=== PATIENT | male | born 1945 | race Caucasian/White ===

== ENCOUNTER 2018-07-04 10:22 | Outpatient (REF) | payer MEDICARE, SELFPAY ==
[2018-07-04 19:12] LABS: Anion Gap 8.8 mmol/L (3-11); BUN 16 mg/dL (7-18); CO2 27.2 mmol/L (21.0-32.0); CREATININE 0.96 mg/dL (0.70-1.30); Calcium 9.3 mg/dL (8.5-10.1); Chloride 99 mmol/L (98-107); Glucose 86 mg/dL (70-100); Potassium 4.7 mmol/L (3.5-5.1); Sodium 135 mmol/L (136-145)
[2018-07-07 10:29] LABS: PSA, Screening 2.1 ng/ml (0-6.5)
== END 2018-07-04 10:42 ==
LOC: NCHCN 10:22
PROVIDERS: PCP Nurse Practitioner Family; Visit Provider Nurse Practitioner Family
DX: I10 Essential (primary) hypertension (principal); E78.5 Hyperlipidemia, unspecified; F41.1 Generalized anxiety disorder; Z12.5 Encounter for screening for malignant neoplasm of prostate; N40.0 Benign prostatic hyperplasia without lower urinary tract symptoms; R01.1 Cardiac murmur, unspecified
CPT/HCPCS: 80048; 84153

== ENCOUNTER 2019-07-27 22:28 | Outpatient (REF) | payer MEDICARE, SELFPAY ==
[2019-07-27 22:29] LABS: Absolute Basophil Count 0.03 k/cumm (0.0-0.2); Absolute Eosinophil Count 0.12 k/cumm (0.0-0.7); Absolute Lymphocyte Count 0.87 k/cumm (1.2-3.4); Absolute Monocyte Count 0.45 k/cumm (0.11-0.7); Absolute Neutrophil Count 2.41 k/cumm (1.2-6.7); Basophils % 0.8; Eosinophils % 3.1; HCT 43.5 % (40.0-50.0); HGB 14.5 g/dL (13.5-17.5); Lymphocytes % 22.4; Mean Corp. HGB Concentration 33.3 g/dL (32.0-36.0); Mean Corpuscular Volume 92.9 fL (80-95); Mean Platelet Volume 8.7 fL (8.0-11.0); Monocytes % 11.6; Neutrophils % 62.1; Platelet Count 364 x1000/uL (130-400); RBC 4.68 m/cumm (4.50-6.00); RBC Distribution Width 13.4 % (11.8-14.1); White Blood Cell Count 3.88 k/cumm (4.4-10.8)
[2019-07-27 23:56] LABS: Anion Gap 7.6 mmol/L (3-11); BUN 12 mg/dL (7-18); CO2 29.4 mmol/L (21.0-32.0); CREATININE 0.99 mg/dL (0.70-1.30); Chloride 99 mmol/L (98-107); Folate 11.1 ng/mL (8.6-20.0); Glucose 105 mg/dL (74-106); Potassium 4.4 mmol/L (3.5-5.1); Sodium 136 mmol/L (136-145); Vitamin B12 439 pg/mL (193-986)
[2019-07-29 09:16] LABS: PSA, Screening 2.5 ng/mL (0.0-6.5)
== END 2019-07-27 22:48 ==
LOC: NCHCN 22:28
PROVIDERS: PCP Nurse Practitioner Family; Visit Provider Nurse Practitioner Family
DX: D75.89 Other specified diseases of blood and blood-forming organs (principal); E87.1 Hypo-osmolality and hyponatremia; R79.9 Abnormal finding of blood chemistry, unspecified; Z12.5 Encounter for screening for malignant neoplasm of prostate
CPT/HCPCS: 80048; 84153; 82607; 82746; 85025

== ENCOUNTER 2020-07-28 08:45 | Outpatient (REF) | payer MEDICARE, SELFPAY ==
[2020-07-28 21:10] LABS: Anion Gap 10.1 mmol/L (3-11); BUN 11 mg/dL (7-18); CO2 26.9 mmol/L (21.0-32.0); CREATININE 1.1 mg/dL (0.70-1.30); Calcium 9.2 mg/dL (8.5-10.1); Chloride 101 mmol/L (98-107); Glucose 87 mg/dL (74-106); Potassium 4.7 mmol/L (3.5-5.1); Sodium 138 mmol/L (136-145)
[2020-07-29 17:59] LABS: PSA, Screening 2.1 ng/mL (0.0-6.5)
== END 2020-07-28 08:46 | disposition home or self-care (01) ==
LOC: NCHCN 08:45
PROVIDERS: PCP Nurse Practitioner Family; Visit Provider Nurse Practitioner Family
DX: I10 Essential (primary) hypertension (principal); E78.5 Hyperlipidemia, unspecified; I48.0 Paroxysmal atrial fibrillation; N40.0 Benign prostatic hyperplasia without lower urinary tract symptoms; Z12.5 Encounter for screening for malignant neoplasm of prostate
CPT/HCPCS: 80048; 84153

== ENCOUNTER 2021-08-28 16:19 | Outpatient (REF) | payer MEDICARE, SELFPAY ==
[2021-08-28 14:28] LABS: HCT 42.4 % (40.0-50.0); HGB 14.3 g/dL (13.5-17.5); MCH 31.8 pg (27.0-33.0); MCHC 33.7 % (32.0-36.0); MCV 94 fL (80-95); MPV 8.9 fL (8.0-11.0); Platelet Count 305 10^3/uL (130-400); RDW 12.8 % (11.8-14.1); RDW-SD 44.3 fL; WBC 3.46 10^3/uL (4.4-10.8)
[2021-08-28 14:45] LABS: Anion Gap 9.2 mmol/L (3-11); BUN 15 mg/dL (7-18); CO2 25.8 mmol/L (21.0-32.0); CREATININE 1.2 mg/dL (0.70-1.30); Chloride 99 mmol/L (98-107); Estimated GFR 58.86 (mL/min/1.73m2); Glucose 109 mg/dL (74-106); Potassium 4.7 mmol/L (3.5-5.1); Sodium 134 mmol/L (136-145)
[2021-08-28 22:42] LABS: PSA, Screening 1.8 ng/mL (<=6.5)
== END 2021-08-28 16:20 | disposition home or self-care (01) ==
LOC: NCHCN 16:19
PROVIDERS: PCP Nurse Practitioner Family; Visit Provider Nurse Practitioner Family
DX: Z00.00 Encounter for general adult medical examination without abnormal findings (principal); I10 Essential (primary) hypertension; Z12.5 Encounter for screening for malignant neoplasm of prostate; Z13.0 Encounter for screening for diseases of the blood and blood-forming organs and certain disorders involving the immune mechanism
CPT/HCPCS: 80048; 84153; 85027

== ENCOUNTER 2022-02-28 09:44 | Outpatient (REF) | payer MEDICARE, SELFPAY ==
[2022-02-28 15:36] LABS: Absolute Basophil Count 0.03 10^3/uL (0.0-0.2); Absolute Eosinophil Count 0.14 10^3/uL (0.0-0.7); Absolute Lymphocyte Count 0.91 10^3/uL (1.2-3.4); Absolute Monocyte Count 0.48 10^3/uL (0.1-0.8); Absolute Neutrophil Count 2.63 10^3/uL (1.2-6.7); Basophils % 0.7; Eosinophils % 3.3; HCT 42.5 % (40.0-50.0); HGB 14.3 g/dL (13.5-17.5); Lymphocytes % 21.7; MCH 31.8 pg (27.0-33.0); MCHC 33.6 % (32.0-36.0); MCV 94 fL (80-95); MPV 8.9 fL (8.0-11.0); Monocytes % 11.5; Neutrophils % 62.8; Platelet Count 334 10^3/uL (130-400); RDW 12.4 % (11.8-14.1); RDW-SD 43.4 fL; WBC 4.19 10^3/uL (4.4-10.8)
== END 2022-02-28 09:45 | disposition home or self-care (01) ==
LOC: NCHCN 09:44
PROVIDERS: PCP Nurse Practitioner Family; Visit Provider Nurse Practitioner Family
DX: I48.0 Paroxysmal atrial fibrillation (principal)
CPT/HCPCS: 85025

== ENCOUNTER 2022-09-10 11:41 | Outpatient (REF) | payer MEDICARE, SELFPAY ==
[2022-09-10 15:31] LABS: HCT 42.5 % (40.0-50.0); HGB 14.1 g/dL (13.5-17.5); MCH 31.6 pg (27.0-33.0); MCHC 33.2 % (32.0-36.0); MCV 95 fL (80-95); MPV 8.4 fL (8.0-11.0); Platelet Count 336 10^3/uL (130-400); RBC 4.46 10^6/uL (4.36-5.78); RDW 12.8 % (11.8-14.1); RDW-SD 45.6 fL; WBC 3.87 10^3/uL (4.4-10.8)
[2022-09-10 15:43] LABS: Anion Gap 7.8 mmol/L (3-11); BUN 14 mg/dL (7-18); CO2 27.2 mmol/L (21.0-32.0); Calcium 9.2 mg/dL (8.5-10.1); Chloride 100 mmol/L (98-107); Estimated GFR 77.52 (mL/min/1.73m2); Glucose 81 mg/dL (74-106); Potassium 4.8 mmol/L (3.5-5.1); Sodium 135 mmol/L (136-145)
[2022-09-11 09:20] LABS: PSA, Screening 1.9 ng/mL (<=6.5)
== END 2022-09-10 11:42 | disposition home or self-care (01) ==
LOC: NCHCN 11:41
PROVIDERS: PCP Nurse Practitioner Family; Visit Provider Nurse Practitioner Family
DX: I10 Essential (primary) hypertension (principal); E78.5 Hyperlipidemia, unspecified; I48.0 Paroxysmal atrial fibrillation; Z79.01 Long term (current) use of anticoagulants; N40.0 Benign prostatic hyperplasia without lower urinary tract symptoms; Z12.5 Encounter for screening for malignant neoplasm of prostate
CPT/HCPCS: 80048; 84153; 85027

== ENCOUNTER 2023-08-27 18:12 | Outpatient (REF) | payer MEDICARE, SELFPAY ==
[2023-08-27 16:22] LABS: HCT 42.2 % (40.0-50.0); HGB 14.4 g/dL (13.5-17.5); MCH 32.3 pg (27.0-33.0); MCHC 34.1 % (32.0-36.0); MCV 95 fL (80-95); MPV 8.6 fL (8.0-11.0); Platelet Count 333 10^3/uL (130-400); RBC 4.46 10^6/uL (4.36-5.78); RDW 12.6 % (11.8-14.1); RDW-SD 43.8 fL; WBC 4.05 10^3/uL (4.4-10.8)
[2023-08-27 16:39] LABS: Anion Gap 8.5 mmol/L (3-11); BUN 14 mg/dL (7-18); CO2 25.5 mmol/L (21.0-32.0); Calcium 9.3 mg/dL (8.5-10.1); Chloride 101 mmol/L (98-107); Estimated GFR 77.04 (mL/min/1.73m2); Glucose 89 mg/dL (74-106); Potassium 4.6 mmol/L (3.5-5.1); Sodium 135 mmol/L (136-145)
--- OUTSIDE RECORDS SUMMARY | 2023-08-27 18:15 | XMS_ITS | Clinical Summary ---
Author Organization [facility] Address [address] [place] [address] Care Team Providers Care Registered Nurse Fetal Name Role Phone Purvi Amador VEGETABLE TESTER Primary Care Provider [phone] Allergies Active Allergy Reactions Criticality Noted Date Comments Zolpidem Other (See Comments) 09/14/2014 Hallucinations Penicillins 09/14/2014 Medications Medication Sig Dispensed Refills Start Date End Date Status venlafaxine (EFFEXOR-XR) 150 mg XR capsule Take 1 Capsule by mouth daily. Active TAMSulosin (FLOMAX) 0.4 mg capsule Take 1 Capsule by mouth daily. Active betamethasone dipropionate 0.05 % lotion Apply topically 2 times daily Active cetirizine (ZYRTEC) 10 mg tablet Take 10 mg by mouth daily. Active NONFORMULARY Take by mouth daily green Vibrance - supplements Active metroNIDAZOLE (METROGEL) 1 % gel Apply topically daily. Use a thin layer to affected areas after washing Active lisinopril (PRINIVIL, ZESTRIL) 2.5 mg tablet Take 1 Tablet by mouth daily. Active ELIQUIS 5 mg tablet Take 1 Tablet by mouth 2 times daily. 01/20/2020 Active Active Problems Problem Noted Date Diagnosed Date Paroxysmal atrial fibrillation ([facility]) Cerebrovascular accident (CVA) ([facility]) 020 Overview: Added automatically from request for surgery [id number] Rotator cuff tear 10/19/2014 Shoulder impingement 10/19/2014 Vertigo 09/16/2014 Asymmetrical left sensorineural hearing loss 07/2014 Encounters Date Type Department Care Team Description 08/27/2023 Lab Requisition [facility] Pathology & [place] [address] Outr Resulting Lab, Provider from Last 3 Months Surgical History Surgery Date Site/Laterality Comments TONSILLECTOMY ANKLE SURGERY PILONIDAL CYST EXCISION ROTATOR CUFF REPAIR and bicep tendon Medical History Medical History Date Comments Heartburn Cancer (HCC-CMS) Environmental allergies Hypertension Family History Medical History Relation Comments Cancer Father Hearing Loss Father Heart Disease Father Heart Disease Mother Relation Status Comments Father Mother Social History Tobacco Use Types Packs/Day Years Used Date Smoking Tobacco: Former Cigarettes 1 19 Smokeless Tobacco: Never Alcohol Use Standard Drinks/Week Comments No 0 (1 standard drink = 0.6 oz pur e alcohol) Interpersonal Safety Answer Date Record ed Physically Hurt Never 09/13/2019 Verbally Threaten Not on file 09/13/2019 Sex and Gender Information Value Date Recorded Sex Assigned at Not on file Gender Identity Male 08/12/2019 12:25 EDT Sexual Orientation Not on file Obstetrics History Last Filed Vital Signs Vital Sign Reading Time Taken Comments Blood Pressure 148/88 01/30/2022 1128 EST Pulse 60 01/30/2022 1128 EST Temperature 35.4 ??C (95.7 ??F) 12/26/2018 0916 EST Respiratory Rate 16 10/19/2014 1357 EDT Oxygen Saturation 98% 01/30/2022 1128 EST Inhaled Oxygen Concentration - - Weight 70.8 kg (156 lb) 01/30/2022 1128 EST Height 177.8 cm (5' 10) 06/27/2017 1509 EDT Body Mass Index 22.38 06/27/2017 1509 EDT Plan of Treatment Health Maintenance Due Date Last Done Comments Hepatitis C Screen 1944 RSV Immunization ( o r 60+ Years) (1 - 1-dose 60+ series) 2004 Fall Risk Screening 01/18/2021 01/19/2020 COVID-19 Vaccine ( - 2022- season) 2022 Medical Devices Implanted Type Area Skimmer Device Identifier Shelf Expiration Date Model / Serial / Lot System Antique Collector Wireless Reveal Linq - [id number] Implanted:Qt y: 1 on 08/12/2019 by Keyon Larson MD at [facility] Implantable Loop Recorder N/A: Chest [employer] [id number] 04/24/2020 [employer]INT[employer] / [id number] S / Advance Directives For more information, please contact: [phone] * Full Code (Latest Code Status on File) Date Activated Date Inactivated Comments 10/19/2014 6:22 10/19/2014 16:34 Question Answer Comments Reason for decision includes: Full code consistent with overall plan of care Who participated in the discussion? Not Discusse d Care Teams Registered Nurse Fetal Relationship Specialty Start Date End Date Purvi Amador, VEGETABLE TESTER [address] [place] [address] PCP - General 08/18/14
--- OUTSIDE RECORDS SUMMARY | 2023-08-27 18:15 | XMS_ITS | Encounter Summary ---
Author Organization [facility] Address [address] [place] [address] Care Team Providers Care Regional Account Manager Name Role Phone Purvi Amador OIL TREATER Primary Care Provider [phone] Encounter Details Date Type Department Care Team (Late st Contact Info) Description 08/27/2023 Lab Requisition [facility] Pathology & Laboratory Medicine - [address] [address] Outr Resulting Lab, Provider Social History Tobacco Use Types Packs/Day Years [...] 12:25 EDT Sexual Orientation Not on file documented as of this encounter Functional Status Functional Status Response Date of Assess ment Because of a physical, menta l, or emotional condition, does this person have difficulty doing errands alone such as visiting a doctor's office or shopping? No 01/19/2020 Cognitive Status Response Date of Assessm ent Because of a physical, menta l, or emotional condition, does this person have serious difficulty concentrating, remembering, or making decisions? No 01/19/2020 documented as of this encounter Plan of Treatment Scheduled Orders Name Type Priority Associated Diagnoses Orde r Schedule PSA TOTAL, DIAGNOSTIC Lab Routine Ord ered: 08/27/2023 documented as of this encounter Visit Diagnoses Not on filedocumented in this encounter Care Teams Regional Account Manager Relationship Specialty Start Date End Date Purvi Amador, OIL TREATER [address] [place] [address] PCP - General 08/18/14 documented as of this encounter
--- OUTSIDE RECORDS SUMMARY | 2023-08-27 18:15 | XMS_ITS | Encounter Summary ---
Author Organization [facility] Address [address] [place] [address] Care Team Providers Care Rig Supervisor Name Role Phone Purvi Amador NP Primary Care Provider Reason for Referral * (Routine) - Closed Specialty Diagnoses / Procedures Referred By Contac t Referred To Contact Diagnoses Atrial fibrillation ([facility]) Procedures CARDIAC IMPLANT CHECK - REMOTE MONITOR Maris Mead NP [address] [address] Referral ID Status Reason Start Date Expiration Date Visits Re quested Visits Authorized [id number] Closed 11/20/2019 1 1 Reason for Visit * (Routine) - Closed Specialty Diagnoses / Procedures Referred By Contac t Referred To Contact Diagnoses Atrial fibrillation ([facility]) Procedures CARDIAC IMPLANT CHECK - REMOTE MONITOR Maris Mead NP [address] [address] Referral ID Status Reason Start Date Expiration Date Visits Re quested Visits Authorized [id number] Closed 11/20/2019 1 1 Encounter Details Date Type Department Care Team (Latest Contact Info) Description 01/18/2020 12:56 EST - 01/18/2020 23:59 EST Hospital Encounter [facility] Remote Device [address] [place] [address] Atrial fibrillation (HCC-CMS) Discharge Disposition: Home or Self Care Social History Tobacco Use Types Packs/Day Years [...] on file documented as of this encounter Medications at Time of Discharge Medication Sig Dispensed Refills Start Date End Date betamethasone dipropionate 0.05 % lotion Apply topically 2 times daily cetirizine (ZYRTEC) 10 mg tablet Take 10 mg by mouth daily. lisinopril (PRINIVIL, ZESTRIL) 2.5 mg tablet Take 1 Tablet by mouth daily. metroNIDAZOLE (METROGEL) 1 % gel Apply topically daily. Use a thin layer to affected areas after washing NONFORMULARY Take by mouth daily green Vibrance - supplements TAMSulosin (FLOMAX) 0.4 mg capsule Take 1 Capsule by mouth daily. venlafaxine (EFFEXOR-XR) 150 mg XR capsule Take 1 Capsule by mouth daily. documented as of this encounter Discharge Disposition Disposition Code Departure Means Destination Home or Self Care documented in this encounter Plan of Treatment Not on file documented as of this encounter Procedures Procedure Name Priority Date/Time Associated Diagnosis Comments CARDIAC IMPLANT CHECK - REMOTE MONITOR Routine 01/18/2020 12:57 EST Atrial fibrillation (HCC-CMS) documented in this encounter Results * CARDIAC IMPLANT CHECK - REMOTE - LOOP RECORDER (ILR) (01/18/2020 12:57 EST) Anatomical Region Laterality Modality Device Narrative 01/20/2020 21:46 EST I have reviewed the implantable loop recorder interrogation. ??I agree with the findings. ?? SCHEDULED ILR REMOTE TRANSMISSION. 0 EPISODES RECORDED SINCE LAST INTERROGATION. BATTERY STATUS OK. NEXT CHECK IN 1 MO. DC Maris Mead NP CV IMPLANTABLE CARDI AC DEVICE documented in this encounter Visit Diagnoses Diagnosis Atrial fibrillation (HCC-CMS) Atrial fibrillation documented in this encounter Care Teams Rig Supervisor Relationship Specialty Start Date End Date Purvi Amador NP [address] [place] [address] PCP - General 08/18/14 documented as of this encounter
--- OUTSIDE RECORDS SUMMARY | 2023-08-27 18:15 | XMS_ITS | Encounter Summary ---
Author Organization [facility] Address [address] [place] [address] Care Team Providers Care Superintendent Drilling Name Role Phone Purvi Amador JAVA GRAILS DEVELOPER Primary Care Provider [phone] Encounter Details Date Type Department Care Team (Late st Contact Info) Description 05/02/2021 Lab Requisition [facility] Pathology & Laboratory Medicine - [facility] [address] [place] [address] Marisel Davis PA-C [address] [place], [place] [id number] Neoplasm of uncertain behavior of skin Social History Tobacco Use Types Packs/Day Years [...] as of this encounter Plan of Treatment Not on file documented as of this encounter Procedures Procedure Name Priority Date/Time Associated Diagnosis Comments SURGICAL PATHOLOGY Today 05/02/2021 9:58 EDT Neoplasm of uncertain behavior of skin documented in this encounter Results * SURGICAL PATHOLOGY (05/02/2021 9:58 EDT) Note to Patient The following pathology results have been interpreted by your pathologist and may be available to you before your health provider has had the opportunity to review them. Please allow time for your provider to receive these results and explore management options, if applicable. 05/03/2021 10:02 [facility] Final Diagnosis A. SKIN OF BACK, LEFT MEDIAL UPPER, SHAVE BIOPSY: - Basal cell carcinoma, nodular type, with adjacent hemangioma. - Basal cell carcinoma does not extend to edges of shave biopsy specimen in the plane of the sections examined. 05/03/2021 10:02 [facility] Attestation By the signature below, the attending physician certifies that they have 1) personally conducted a gross and/or microscopic examination of the described specimen(s), and/or personally interpreted the results of laboratory testing of the described specimen(s), and 2) personally rendered or confirmed the above diagnosis. 05/03/2021 10:02 [facility] at 1002 Microscopic Description Irregularly shaped islands of atypical basal cells infiltrate the dermis. The basal cells have scant cytoplasm and round dark nuclei. Mitotic figures and apoptotic bodies are evident. The nuclei at the periphery of the islands have a palisaded arrangement. The islands are associated with a fibromyxoid stroma and there is cleft formation between some of the islands and stroma. There is an adjacent lobular proliferation of small thin-walled vessels lined by flattened endothelium. 05/03/2021 10:02 [facility] Clinical History 5 mm telangiectatic papule with adjacent hemangioma; DDx: Basal cell carcinoma vs irritated seborrheic keratosis with adjacent hemangioma; Notes: Plan: ED&C; clinical diagnosis code: D48.5 05/03/2021 10:02 [facility] Gross Description A. Received in formalin labelled with proper patient identification (initials S, W) and left medial upper back is a rubbery ovoid skin shave, 0.8 x 0.7 x 0.15 cm. The skin surface is dull avelar with brown speckling. The margin is inked. Trisected and entirely submitted in A1. DINESH MUNGUIA(ASCP) 05/02/2021 16:32 05/03/2021 10:02 EDT [facility] Performing Lab [facility] 05/03/2021 10:02 EDT [facility] Scanned Images 05/03/2021 10:02 EDT [facility] Tissue TISSUE SPECIMEN FROM SKIN / Unknown 05/02/2021 9:58 EDT 05/02/2021 14:09 EDT Marisel Davis PA-C PATHOLOGY ORD ERABLES [facility] [address] [place] [address] documented in this encounter Visit Diagnoses Diagnosis Neoplasm of uncertain behavior of skin documented in this encounter Care Teams Superintendent Drilling Relationship Specialty Start Date End Date Purvi Amador NP [address] [place] [address] PCP - General 08/18/14 documented as of this encounter
--- OUTSIDE RECORDS SUMMARY | 2023-08-27 18:15 | XMS_ITS | Encounter Summary ---
Author Organization [facility] Address [address] [place] [address] Care Team Providers Care Junior Recruiter Name Role Phone Purvi Amador DIRECTOR OF ENVIRONMENTAL SERVICES Primary Care Provider [phone] Encounter Details Date Type Department Care Team (Latest Contact Info) Description 08/12/2019 Travel Social History Tobacco Use Types Packs/Day Years Used Date Smoking Tobacco: Former Cigarettes 1 19 Smokeless Tobacco: Never Alcohol Use Standard Drinks/Week Comments No 0 (1 standard drink = 0.6 oz pur e alcohol) Sex and Gender Information Value Date Recorded Sex Assigned at Not on file Gender Identity Male 08/12/2019 12:25 EDT Sexual Orientation Not on file COVID-19 Exposure Response Date Recorded In the last month, have you been in contact with someone who was confirmed or suspected to have Coronavirus / COVID-19? No / Unsure 08/12/2019 12:21 EDT documented as of this encounter Plan of Treatment Not on file documented as of this encounter Visit Diagnoses Not on filedocumented in this encounter Care Teams Junior Recruiter Relationship Specialty Start Date End Date Purvi Amador, DIRECTOR OF ENVIRONMENTAL SERVICES [address] [place] [address] PCP - General 08/18/14 documented as of this encounter
--- OUTSIDE RECORDS SUMMARY | 2023-08-27 18:15 | XMS_ITS | Encounter Summary ---
Author Organization [facility] Address [address] [place] [address] Care Team Providers Care Twisting Press Operator Name Role Phone Purvi Amador NP Primary Care Provider [phone] Reason for Referral * (Routine) - Closed Specialty Diagnoses / Procedures Referred By Contac t Referred To Contact Diagnoses Atrial fibrillation (HCC-CMS) Procedures CARDIAC IMPLANT CHECK - REMOTE MONITOR Maris Mead NP [id number] [address] Referral ID Status Reason Start Date Expiration Date Visits Re quested Visits Authorized [id number] Closed 08/02/2020 1 1 Reason for Visit * (Routine) - Closed Specialty Diagnoses / Procedures Referred By Contac t Referred To Contact Diagnoses Atrial fibrillation (HCC-CMS) Procedures CARDIAC IMPLANT CHECK - REMOTE MONITOR Maris Mead NP [id number] [address] Referral ID Status Reason Start Date Expiration Date Visits Re quested Visits Authorized [id number] Closed 08/02/2020 1 1 Encounter Details Date Type Department Care Team (Latest Contact Info) Description 09/02/2020 5:15 EDT - 09/02/2020 23:59 EDT Hospital Encounter [facility] Remote Device [address] [place] [address] Atrial fibrillation (HCC-CMS) Discharge Disposition: Home or [...] No 01/19/2020 documented as of this encounter Medications at Time of Discharge Medication Sig Dispensed Refills Start Date End Date betamethasone dipropionate 0.05 % lotion Apply topically 2 times daily cetirizine (ZYRTEC) 10 mg tablet Take 10 mg by mouth daily. ELIQUIS 5 mg tablet Take 1 Tablet by mouth 2 times daily. 01/20/2020 lisinopril (PRINIVIL, ZESTRIL) 2.5 mg tablet Take [...] CARDIAC IMPLANT CHECK - REMOTE MONITOR Routine 09/02/2020 13:08 EDT Atrial fibrillation (HCC-CMS) documented in this encounter Results * CARDIAC IMPLANT CHECK - REMOTE - LOOP RECORDER (ILR) (09/02/2020 13:08 EDT) Anatomical Region Laterality Modality Device Narrative 09/05/2020 14:45 EDT I have reviewed the implantable loop recorder interrogation. ??I agree with the findings. SCHEDULED ILR REMOTE TRANSMISSION. 0 EPISODES RECORDED SINCE LAST INTERROGATION. BATTERY STATUS OK. NEXT CHECK IN 1 MO. DC Maris Mead NP CV IMPLANTABLE CARDI AC DEVICE documented in this encounter Visit Diagnoses Diagnosis Atrial fibrillation ([facility]) Atrial fibrillation documented in this encounter Care Teams Twisting Press Operator Relationship Specialty Start Date End Date Purvi Amador NP [address] [place] [address] PCP - General 08/18/14 documented as of this encounter
--- OUTSIDE RECORDS SUMMARY | 2023-08-27 18:15 | XMS_ITS | Encounter Summary ---
Author Organization [facility] Address [address] [place] [address] Care Team Providers Care Car Wrecker Name Role Phone Purvi Amador THERMO PROCESSOR Primary Care Provider [phone] Reason for Visit * Reason Comments Atrial Fibrillation Encounter Details Date Type Department Care Team (Late st Contact Info) Description 01/24/2021 8:30 EST Office Visit [facility] Cardiology - [address] [place] [address] Lion Mitchell MD [address] [place], [place] [address]ey [facility] [address] [place] [address] Paroxysmal atrial fibrillation (HCC-CMS) (HCC) (Primary Dx) Social History Tobacco Use Types Packs/Day Years [...] on file documented as of this encounter Last Filed Vital Signs Vital Sign Reading Time Taken Comments Blood Pressure 142/82 01/24/2021 0825 EST Pulse 67 01/24/2021 0825 EST Temperature - - Respiratory Rate - - Oxygen Saturation 99% 01/24/2021 0825 EST Inhaled Oxygen Concentration - - Weight 70.8 kg (156 lb) 01/24/2021 0825 EST Height - - Body Mass Index 22.38 06/27/2017 1509 EDT documented in this encounter Functional Status Functional Status Response [...] No 01/19/2020 documented as of this encounter Patient Instructions * Patient Instructions* Lion Mitchell MD - 01/24/2021 8:30 EST You are tolerating the Eliquis well and this should be continued indefinitely. Please try to identify the equipment for your implantable loop recorder transmission and we will take advantage of this until the battery runs out. After that, I would be happy to arrange removal, which is a minor outpatient procedure that is performed in a specialized setting, rather than the clinic. Your blood pressure is slightly elevated. Please check this at home and follow- up with Purvi Amador, who may wish to advance your antihypertensive medicine. I will plan to see you back in clinic in 1 year or sooner if necessary. documented in this encounter Progress Notes * Lion Mitchell MD - 01/24/2021 0830 EST Subjective: Patient ID: Michael Mackenzie is an 75 y.o. man who returns for scheduled follow- up of atrial fibrillation and TIA.. Chief Complaint Patient presents with ??? Atrial Fibrillation HPI The history is summarized in a telemedicine visit from January 19, 2020. 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 He was a reason but had an implantable loop recorder placed onAugust 12, 2019. On January 15, 2020, the ILR was interrogated based on alert transmission and 20 minutes of atrial fibrillation with average heart rate of 95 bpm was documented. Discontinuation of aspirin and initiation of apixaban 5 mg twice a day was recommended. He has continued to be followed forhis loop recorder. Today he returns for scheduled follow-up which is her first visit in person. He has not been transmitting from loop recorder but plans to identify the equipment and continue; he is in the process of moving so his belongings are in storage. He denies any shortness of breath, chest pain, or palpitations. He will occasionally feel dizzy after going up stairs but this is not new. He is very active and has lost some weight as he has been building a new house. Patient Active Problem List Diagnosis ??? Vertigo ??? Asymmetrical left sensorineural hearing loss ??? Rotator cuff tear ??? Shoulder impingement ??? Cerebrovascular accident (CVA) (HCC-CMS) (HCC) ??? Paroxysmal atrial fibrillation (HCC-CMS) (HCC) Past Medical History: Diagnosis Date ??? Cancer (HCC-CMS) (HCC) ??? Environmental allergies ??? Heartburn ??? Hypertension Past Surgical History: Procedure Laterality Date ??? ANKLE SURGERY ??? PILONIDAL CYST EXCISION ??? ROTATOR CUFF REPAIR and bicep tendon ??? TONSILLECTOMY Family History Problem Relation Age of Onset ??? Heart Disease Mother ??? Cancer Father ??? Heart Disease Father ??? Hearing Loss Father Social Social History Tobacco Use ??? Smoking status: Former Smoker Packs/day: 1.00 Years: 19.00 Pack years: 19.00 ??? Smokeless tobacco: Never Used Vaping Use ??? Vaping Use: Never used Substance Use Topics ??? Alcohol use: No ??? Drug use: No Current Outpatient Medications on File Prior to Visit Medication Sig Dispense Refill ??? betamethasone dipropionate 0.05 % lotion Apply topically 2 times daily ??? cetirizine (ZYRTEC) 10 mg tablet Take 10 mg by mouth daily. (Patient not taking: Reported on 01/24/2021) ??? ELIQUIS 5 mg tablet Take 5 mg by mouth 2 times daily. ??? lisinopril (PRINIVIL, ZESTRIL) 2.5 mg tablet Take 2.5 mg by mouth daily. ??? metroNIDAZOLE (METROGEL) 1 % gel Apply topically daily. Use a thin layer to affected areas after washing ??? NONFORMULARY Take by mouth daily green Vibrance - supplements ??? tamsulosin (FLOMAX) 0.4 mg capsule Take 0.4 mg by mouth daily ??? venlafaxine (EFFEXOR XR) 150 mg XR capsule Take 150 mg by mouth daily No current facility-administered medications on file prior to visit. Allergies Allergen Reactions ??? Ambien [Zolpidem] Other (See Comments) Hallucinations ??? Penicillins ROS - See HPI Objective: BP (!) 142/82 (BP Cuff Location: Right arm, BP Patient Position: Sitting, BP Cuff Sizes: Adult, regular) Pulse 67 Wt 70.8 kg (156 lb) SpO2 99% BMI 22.38 kg/m?? Physical Exam The patient is comfortable and without distress. There is no evidence of depression. The skin is warm and dry. HEENT examination shows anicteric sclera and normal oral mucosa. The neck exam shows no thyromegaly. The ILR is well healed in the left anterior chest. The lungs are clear to percussion and auscultation. Cardiovascular examination is reveals jugular venous pressure less than 5. The carotid upstroke is normal, without bruit. The apical impulse is not displaced. S1 and S2 are normal and there is no rub, gallop or murmur. The abdomen is benign, without hepatosplenomegaly. Femoral pulsesare full. The extremities are without edema and pedal pulses are intact. His left leg is status post injury and multiple surgeries Accessory clinical data: The electrocardiogram today shows normal sinus rhythm at 67 bpm with a normal tracing.. Assessment: Mr. Mackenzie has no further symptoms of cardiogenic embolism and no symptoms of atrial fibrillation. He remains quite active. He does insightful and understands the need for ongoing anticoagulation. This will be continued indefinitely with a [id number] score of 5. Since his ILR still has battery life, we will ask him to identify his equipment and continue to trend. His remove when the battery no longer functions. His systolic blood pressure is elevated today. I have asked him to follow-up with Purvi Amador NP, and to check his blood pressure at home. I will plan to see him back in clinic in 1 year or sooner if necessary Plan: As above. (I48.0) Paroxysmal atrial fibrillation (HCC-CMS) (HCC) (primary encounter diagnosis) Plan: EKG 12-LEAD Lion Mitchell MD No orders of the defined types were placed in this encounter. documented in this encounter Plan of Treatment Not on file documented as of this encounter Procedures Procedure Name Priority Date/Time Associated Diagnosis Comments ECG REPORT - SCANNED 01/25/2021 8:22 EST EKG 12-LEAD Routine 01/24/2021 8:45 EST Paroxysmal atrial fibrillation (HCC-CMS) (HCC) documented in this encounter Results * ECG REPORT - SCANNED (01/25/2021 8:22 EST) 01/25/2021 8:22 EST Scan 2 Distributed Generation Project Manager PROCEDURE/MINOR DANIELLA GICAL ORDERABLES * EKG 12-LEAD (01/24/2021 8:45 EST) 01/24/2021 8:45 EST Narrative [facility] EKG - 01/25/2021 8:17 EST ? [facility] ? Test Date: ?2021-01-24 Pat Name: ? MICHAEL CANSECOCUM ? Department: ?? N[facility] Card ? Room: ? Gender: ? Male ? Scrap Separator: ?? [id number] : ?1945 ? Requested By: DEBRA Johansen Order Number: [id number] ? Reading MD: ?? DURAN PRECIADO MD ? Measurements Intervals ?[place] ? Rate: ? 67 ? P: ?79 IN: ? 147 ?QRS: ?52 QRSD: ? 101 ?T: ?55 QT: ? 377 ? QTc: ?401 ? Interpretive Statements SINUS RHYTHM No previous ECG available for comparison I reviewed the tracing and have either agreed or edited the findings in this report. Electronically Signed On 01-25-2021 8:17:30 EST by DURAN PRECIADO MD. Procedure Note Duran Preciado MD - 01/25/2021 [facility] Test Date: 2021-01-24 Pat Name: MICHAEL MACKENZIE Department: Nena Lopez Room: Gender: Male Scrap Separator: [id number] : 1945 Requested By: DEBRA Johansen Order Number: [id number] Reading MD: DURAN PRECIADO MD Measurements Intervals [place] Rate: 67 P: 79 IN: 147 QRS: 52 QRSD: 101 T: 55 QT: 377 QTc: 401 Interpretive Statements SINUS RHYTHM No previous ECG available for comparison I reviewed the tracing and have either agreed or edited the findings inthis report. Electronically Signed On 01-25-2021 8:17:30 EST by DURAN PERDUE. Lion Mitchell MD CARDIAC ECG ORDERABL ES [facility] EKG documented in this encounter Visit Diagnoses Diagnosis Paroxysmal atrial fibrillation (HCC-CMS)- Primary Atrial fibrillation documented in this encounter Care Teams Car Wrecker Relationship Specialty Start Date End Date Purvi Amador NP [address] [place] [address] PCP - General 08/18/14 documented as of this encounter
--- OUTSIDE RECORDS SUMMARY | 2023-08-27 18:15 | XMS_ITS | Encounter Summary ---
Author Organization [facility] Address [address] [place] [address] Care Team Providers Care Linen Room Attendant Name Role Phone Purvi Amador RESEARCH TECHNICIAN Primary Care Provider [phone] Reason for Visit * Radiology Services (Routine/Next Available) - Authorization Not Required Specialty Diagnoses / Procedures Referred By Niko baldwin Referred To Contact Radiology Diagnoses Pain in right shoulder Procedures MR SHOULDER WO CONTRAST RIGHT Purvi Amador, RESEARCH TECHNICIAN [address] [place] [address] [facility] Referral ID Status Reason Start Date Expiration Date Visits Requested Visits Authorized [id number] Authorization Not Required 08/16/2022 1 1 Encounter Details Date Type Department Care Team (Latest Contact Info) Description 10/25/2022 9:35 EDT - 10/25/2022 23:59 EDT Hospital Encounter [facility] - [facility] MRI [address] [place] [address] Discharge Disposition: Home or Self Care Social [...] Procedure Name Priority Date/Time Associated Diagnosis Comments MR SHOULDER WO CONTRAST RIGHT Routine 10/25/2022 10:39 EDT Pain in right shoulder documented in this encounter Results * MR SHOULDER WO CONTRAST RIGHT (10/25/2022 10:39 EDT) Anatomical Region Laterality Modality Upper Extremities Right Magnetic Reson ance 10/25/2022 10:5 9 EDT Impressions 10/25/2022 10:59 EDT MR SHOULDER WO CONTRAST RIGHT 1. Supraspinatus tendinosis with high-grade articular sided tearing and a suspected full-thickness component. 2. Moderate subscapularis tendinosis with low-grade interstitial tearing at the footprint. 3. Moderate infraspinatus tendinosis without tear. 4. Degeneration of the long head of biceps tendon. Medial subluxation at the upper bicipital groove with longitudinal fissuring. 5. Labral degeneration and degenerative tearing of the posterior superior labrum. 6. Small glenohumeral joint effusion. 7. Moderate fluid within the subacromial subdeltoid bursa. This may be related to the suspected focal full-thickness supraspinatus tendon tear. 8. Moderate acromioclavicular hypertrophic arthrosis. [id number] Narrative 10/25/2022 10:59 EDT Exam: MR SHOULDER WO CONTRAST RIGHT ??10/25/2022 10:00 AM Technique: MR SHOULDER WO CONTRAST RIGHT ?? Signs and Symptoms/Comments: assess rotator cuff tear, labral tear, etc; Pain in right shoulder;M25.511:Pain in right shoulder Comparison: Radiographs 05/21/2022. FINDINGS: Rotator Cuff: Supraspinatus: Moderate tendinosis. High-grade articular sided tearing of mid and posterior fibers with few intact bursal sided fibers remaining and retraction of torn tendon fibers approximately 10 mm (coronal series 5 image 13). The tear spans approximately 11 mm in anterior to posterior dimension (axial series 3 image 15). Suspected pinhole full-thickness component posteriorly (series 3 image 14). Muscle belly preserved. Infraspinatus: Moderate tendinosis without discrete tear. Muscle belly preserved. Teres Minor: Intact. Muscle belly preserved. Subscapularis: Moderate tendinosis. Low-grade interstitial tearing at the footprint (axial series 3 image 11). Muscle belly preserved Long head biceps tendon: Mild degeneration at the bicipital groove with moderate to large amount of fluid within the tendon sheath with synovitis. Medial subluxation and longitudinal fissuring at the level of the upper bicipital groove (axial image 10-12). Moderate degeneration of the intra-articular portion. Labrum: Degeneration of the superior and anterior inferior labrum. Degenerative tearing of the posterior superior labrum. Cartilage: Mild chondral thinning over the inferior aspect of the humeral head. Articular cartilage over the glenoid relatively preserved Joint Space: Small joint effusion with synovitis. Joint fluid decompresses into the long head of the biceps tendon sheath and superior subscapularis recess. Bones: ??Bone marrow signal is unremarkable. Acromioclavicular Joint: Moderate hypertrophic acromioclavicular arthrosis with moderate joint effusion. Subacromial-Subdeltoid Bursa: Moderate fluid within the subacromial-subdeltoid bursa possibly related to the focal full-thickness supraspinatus tear, Extra-articular Soft Tissues: Unremarkable. Procedure Note Joe Simon MD - 10/25/2022 Exam: MR SHOULDER WO CONTRAST RIGHT 10/25/2022 10:00 AM Technique: MR SHOULDER WO CONTRAST RIGHT Signs and Symptoms/Comments: assess rotator cuff tear, labral tear, etc;Pain in right shoulder;M25.511:Pain in right shoulder Comparison: Radiographs 05/21/2022. FINDINGS: Rotator Cuff: Supraspinatus: Moderate tendinosis. High-grade articular sided tearing ofmid and posterior fibers with few intact bursal sided fibers remaining andretraction of torn tendon fibers approximately 10 mm (coronal series 5image 13). The tear spans approximately 11 mm in anterior to posteriordimension (axial series 3 image 15). Suspected pinhole full-thicknesscomponent posteriorly (series 3 image 14). Muscle belly preserved. Infraspinatus: Moderate tendinosis without discrete tear. Muscle bellypreserved. Teres Minor: Intact. Muscle belly preserved. Subscapularis: Moderate tendinosis. Low-grade interstitial tearing at thefootprint (axial series 3 image 11). Muscle belly preserved Long head biceps tendon: Mild degeneration at the bicipital groove withmoderate to large amount of fluid within the tendon sheath with synovitis.Medial subluxation and longitudinal fissuring at the level of the upperbicipital groove (axial image 10-12). Moderate degeneration of theintra-articular portion. Labrum: Degeneration of the superior and anterior inferior labrum.Degenerative tearing of the posterior superior labrum. Cartilage: Mild chondral thinning over the inferior aspect of the humeralhead. Articular cartilage over the glenoid relatively preserved Joint Space: Small joint effusion with synovitis. Joint fluid decompressesinto the long head of the biceps tendon sheath and superior subscapularisrecess. Bones: Bone marrow signal is unremarkable. Acromioclavicular Joint: Moderate hypertrophic acromioclavicular arthrosiswith moderate joint effusion. Subacromial-Subdeltoid Bursa: Moderate fluid within thesubacromial-subdeltoid bursa possibly related to the focal full-thicknesssupraspinatus tear, Extra-articular Soft Tissues: Unremarkable. IMPRESSION MR SHOULDER WO CONTRAST RIGHT 1. Supraspinatus tendinosis with high-grade articular sided tearing and asuspected full-thickness component. 2. Moderate subscapularis tendinosis with low-grade interstitial tearingat the footprint. 3. Moderate infraspinatus tendinosis without tear. 4. Degeneration of the long head of biceps tendon. Medial subluxation atthe upper bicipital groove with longitudinal fissuring. 5. Labral degeneration and degenerative tearing of the posterior superiorlabrum. 6. Small glenohumeral joint effusion. 7. Moderate fluid within the subacromial subdeltoid bursa. This may berelated to the suspected focal full-thickness supraspinatus tendon tear. 8. Moderate acromioclavicular hypertrophic arthrosis. [id number] Purvi Amador NP IMG MRI ORDERABLES documented in this encounter Visit Diagnoses Not on filedocumented in this encounter Care Teams Linen Room Attendant Relationship Specialty Start Date End Date Purvi Amador, RESEARCH TECHNICIAN [address] [place] [address] PCP - General 08/18/14 documented as of this encounter
--- OUTSIDE RECORDS SUMMARY | 2023-08-27 18:15 | XMS_ITS | Encounter Summary ---
Author Organization [facility] Address [address] [place] [address] Care Team Providers Care Director Pharmaceutical Name Role Phone Purvi Amador COACH TOUR DRIVER Primary Care Provider [phone] Encounter Details Date Type Department Care Team (Late st Contact Info) Description 08/28/2021 Lab Requisition [facility] Pathology & Laboratory Medicine - [address] [address] Outr Resulting Lab, Provider Social History Tobacco [...] Procedure Name Priority Date/Time Associated Diagnosis Comments PSA TOTAL, DIAGNOSTIC Routine 08/28/2021 8:40 EDT documented in this encounter Results * PSA TOTAL, DIAGNOSTIC (08/28/2021 8:40 EDT) PSA 1.8 <=6.5 ng/mL 08/28/2021 22:36 EDT [facility] Blood VENOUS BLOOD / Unknown 08/28/2021 8:40 EDT 08/28/2021 21:39 EDT Narrative [facility] - 08/28/2021 22:36 EDT NOTE: Serum PSA concentration should not be interpreted as absolute evidence for the presence or absence of malignant disease. Assayed on [employer] Anomoaur XPT using chemiluminescent technology.??Values obtained by using different assay methods cannot be used interchangeably. Provider Outr Resulting Lab CHEMISTRY & BLOOD GAS ORDERABLES [facility] [address] [place] [address] documented in this encounter Visit Diagnoses Not on filedocumented in this encounter Care Teams Director Pharmaceutical Relationship Specialty Start Date End Date Purvi Amador NP [address] [place] [address] PCP - General 08/18/14 documented as of this encounter
--- OUTSIDE RECORDS SUMMARY | 2023-08-27 18:15 | XMS_ITS | Encounter Summary ---
Author Organization [facility] Address [address] [place] [address] Care Team Providers Care Mechanical System Technician Name Role Phone Purvi Amador NP Primary Care Provider [phone] Reason for Referral * (Routine) - Closed Specialty Diagnoses / Procedures Referred By Contac t Referred To Contact Diagnoses Atrial fibrillation ([facility]) Procedures CARDIAC IMPLANT CHECK - REMOTE MONITOR Maris Mead NP [address] [address] Referral ID Status Reason Start Date Expiration Date Visits Re quested Visits Authorized [id number] Closed 01/18/2020 1 1 Reason for Visit * (Routine) - Closed Specialty Diagnoses / Procedures Referred By Contac t Referred To Contact Diagnoses Atrial fibrillation (HCC-CMS) Procedures CARDIAC IMPLANT CHECK - REMOTE MONITOR Maris Mead NP [address] [address] Referral ID Status Reason Start Date Expiration Date Visits Re quested Visits Authorized [id number] Closed 01/18/2020 1 1 Encounter Details Date Type Department Care Team (Latest Contact Info) Description 01/18/2020 10:38 EST - 01/18/2020 12:55 EST Hospital Encounter [facility] Remote Device [address] [place] [address] Atrial fibrillation (HCC-CMS) Discharge Disposition: Home or [...] IMPLANT CHECK - REMOTE MONITOR Routine 01/18/2020 10:40 EST Atrial fibrillation ([facility]) documented in this encounter Results * CARDIAC IMPLANT CHECK - REMOTE - LOOP RECORDER (ILR) (01/18/2020 10:40 EST) Anatomical Region Laterality Modality Device Narrative 01/20/2020 21:46 EST I have reviewed the implantable loop recorder interrogation. ??I agree with the findings. ?? Alert ILR transmission for AF episode c/w AF for 20 minutes, average heart rate 95 bpm @ 14:49. Patient is not anti coagulated. Unable to contact patient. Jennyfer Segovia RN/ Renee Negro NP notified ?? DC Maris Mead NP CV IMPLANTABLE CARDI AC DEVICE documented in this encounter Visit Diagnoses Diagnosis Atrial fibrillation ([facility]) Atrial fibrillation documented in this encounter Care Teams Mechanical System Technician Relationship Specialty Start Date End Date Purvi Amador, LEANDRO [address] [place] [address] PCP - General 08/18/14 documented as of this encounter
--- OUTSIDE RECORDS SUMMARY | 2023-08-27 18:15 | XMS_ITS | Encounter Summary ---
Author Organization [facility] Address [address] [place] [address] Care Team Providers Care Safety Physician Name Role Phone Purvi Amador FACILITY ENGINEER Primary Care Provider [phone] Encounter Details Date Type Department Care Team (Late st Contact Info) Description 05/02/2020 Lab Requisition [facility] Pathology & Laboratory Medicine - [facility] [address] [place] [address] Marisel Davis PA-C [address] [place], [place] [id number] Neoplasm of uncertain behavior of skin Social [...] Date/Time Associated Diagnosis Comments SURGICAL PATHOLOGY Today 05/02/2020 9:58 EDT Neoplasm of uncertain behavior of skin documented in this encounter Results * SURGICAL PATHOLOGY (05/02/2020 9:58 EDT) Final Diagnosis A. SKIN OF CHEONDOISM, RIGHT CENTRAL, SHAVE BIOPSY: - Seborrheic keratosis. See comment. 05/06/2020 8:28 [facility] Diagnosis Comment Deeper levels have been examined. 05/06/2020 8:28 [facility] Attestation By the signature below, the attending physician certifies that they have 1) personally conducted a gross and/or microscopic examination of the described specimen(s), and/or personally interpreted the results of laboratory testing of the described specimen(s), and 2) personally rendered or confirmed the above diagnosis. 05/06/2020 8:28 [facility] at 0828 Clinical History 4 mm pink shiny papule; DDx: basal cell carcinoma vs other; notes; Mohs with ; clinical diagnosis code: D48.5 05/06/2020 8:28 [facility] Gross Description A. Received in formalin labelled with proper patient identification (initials S, W) and right central scientologist is a pale avelar ovoid skin shave, 0.6 x 0.4 x 0 1 cm. The margin is inked. Bisected and entirely submitted in A1. DINESH MUNGUIA(ASCP) 05/03/2020 7:28 05/06/2020 8:28 [facility] Performing Lab [facility] 05/06/2020 8:28 [facility] Scanned Images 05/06/2020 8:28 [facility] Tissue TISSUE SPECIMEN FROM SKIN / Unknown 05/02/2020 9:58 EDT 05/02/2020 18:17 EDT Marisel Davis PA-C PATHOLOGY ORD [facility] [address] [place] [address] documented in this encounter Visit Diagnoses Diagnosis Neoplasm of uncertain behavior of skin documented in this encounter Care Teams Safety Physician Relationship Specialty Start Date End Date Purvi Amador, FACILITY ENGINEER [address] [place] [address] PCP - General 08/18/14 documented as of this encounter
--- OUTSIDE RECORDS SUMMARY | 2023-08-27 18:15 | XMS_ITS | Encounter Summary ---
Author Organization [facility] Address [address] [place] [address] Care Team Providers Care Helper Maintenance Cleaning Name Role Phone Purvi Amador CRUDE OIL TREATER Primary Care Provider [phone] Encounter Details Date Type Department Care Team (Late st Contact Info) Description 01/13/2020 Lab Requisition [facility] Pathology & Laboratory Medicine - [facility] [address] [place] [address] Marisel Davis PA-C [address] [place] [address] ,[address] [place], [place] [id number] Neoplasm of uncertain behavior of skin Social [...] on file documented as of this encounter Plan of Treatment Not on file documented as of this encounter Procedures Procedure Name Priority Date/Time Associated Diagnosis Comments SURGICAL PATHOLOGY Today 01/13/2020 10 :55 EST Neoplasm of uncertain behavior of skin documented in this encounter Results * SURGICAL PATHOLOGY (01/13/2020 10:55 EST) Final Diagnosis A. SKIN OF SCALP, LEFT SUPERIOR PARIETAL, SHAVE BIOPSY: - Actinic keratosis, inflamed. 01/14/2020 11:33 [facility] Attestation By the signature below, the attending physician certifies that they have 1) personally conducted a gross and/or microscopic examination of the described specimen(s), and/or personally interpreted the results of laboratory testing of the described specimen(s), and 2) personally rendered or confirmed the above diagnosis. 01/14/2020 11:33 [facility] at 1133 Microscopic Description The stratum corneum is thickened by orthohyperkeratosis with foci of parakeratosis. The epidermis is focally thickened with elongate and bulbous rete ridges. The basal keratinocytes show a variable degree of atypia including nuclear enlargement, dispolarity, and hyperchromasia. The dermis is marked by solar elastosis, vascular ectasia and a lymphohistiocytic infiltrate. 01/14/2020 11:33 [facility] Clinical History 8 mm thin scaly papule; DDx: Actinic keratosis vs. squamous cell carcinoma; Plan: 5-FU vs. ED& C vs. Mohs with Dr. Joni Mcdonald [facility] 01/14/2020 11:33 [facility] Gross Description A. Received in formalin labelled with proper patient identification (initials S, W) and left superior parietal scalp is a shave biopsy of avelar roughened hair-bearing skin (0.6 x 0.5 x 0.1 cm). The margin is inked blue. The tissue is bisected and entirely submitted in A1. DINESH MURILLO(ASCP) 01/13/2020 15:54 01/14/2020 11:33 [facility] Performing Lab [facility] 01/14/2020 11:33 [facility] Scanned Images 01/14/2020 11:33 [facility] Tissue TISSUE SPECIMEN FROM SKIN / Unknown 01/13/2020 10:55 EST 01/13/2020 14:55 EST Marisel Davis PA-C PATHOLOGY ORD ERABLES [facility] [address] [place] [address] documented in this encounter Visit Diagnoses Diagnosis Neoplasm of uncertain behavior of skin documented in this encounter Care Teams Helper Maintenance Cleaning Relationship Specialty Start Date End Date Purvi Amador, CRUDE OIL TREATER [address] [place] [address] PCP - General 08/18/14 documented as of this encounter
--- OUTSIDE RECORDS SUMMARY | 2023-08-27 18:15 | XMS_ITS | Encounter Summary ---
Author Organization [facility] Address [address] [place] [address] Care Team Providers Care Hospital Coder Name Role Phone Purvi Amador NP Primary Care Provider [phone] Reason for Referral * (Routine) - Authorization Not Required Specialty Diagnoses / Procedures Referred By Contac t Referred To Contact Diagnoses Atrial fibrillation (HCC-CMS) Procedures CARDIAC IMPLANT CHECK - REMOTE MONITOR Maris Mead NP [address] [address] Referral ID Status Reason Start Date Expiration Date Visits Requested Visits Authorized [id number] Authorization Not Required 10/05/2020 1 1 Reason for Visit * (Routine) - Authorization Not Required Specialty Diagnoses / Procedures Referred By Contac t Referred To Contact Diagnoses Atrial fibrillation (HCC-CMS) Procedures CARDIAC IMPLANT CHECK - REMOTE MONITOR Maris Mead NP [address] [address] Referral ID Status Reason Start Date Expiration Date Visits Requested Visits Authorized [id number] Authorization Not Required 10/05/2020 1 1 Encounter Details Date Type Department Care Team (Latest Contact Info) Description 11/07/2020 3:00 EDT - 11/07/2020 23:59 EDT Hospital Encounter [facility] Remote Device [address] [place] [address] Atrial fibrillation (HCC-CMS) Discharge Disposition: Home or [...] CARDIAC IMPLANT CHECK - REMOTE MONITOR Routine 11/07/2020 14:45 EDT Atrial fibrillation ([facility]) documented in this encounter Results * CARDIAC IMPLANT CHECK - REMOTE - LOOP RECORDER (ILR) (11/07/2020 14:45 EDT) Anatomical Region Laterality Modality Device Narrative 11/08/2020 10:12 EDT I have reviewed the implantable loop recorder interrogation. ??I agree with the findings. SCHEDULED ILR REMOTE TRANSMISSION. 0 EPISODES RECORDED SINCE LAST INTERROGATION. BATTERY STATUS OK. NEXT CHECK IN 1 MO. DC Maris Mead NP CV IMPLANTABLE CARDI AC DEVICE documented in this encounter Visit Diagnoses Diagnosis Atrial fibrillation ([facility]) Atrial fibrillation documented in this encounter Care Teams Hospital Coder Relationship Specialty Start Date End Date Purvi Amador NP [address] [place] [address] PCP - General 08/18/14 documented as of this encounter
--- OUTSIDE RECORDS SUMMARY | 2023-08-27 18:15 | XMS_ITS | Encounter Summary ---
Author Organization [facility] Address [address] [place] [address] Care Team Providers Care Internal Specialist Name Role Phone Purvi Amador NP Primary Care Provider [phone] Reason for Referral * (Routine) - Authorization Not Required Specialty Diagnoses / Procedures Referred By Contac t Referred To Contact Diagnoses Atrial fibrillation (HCC-CMS) Procedures CARDIAC IMPLANT CHECK - REMOTE MONITOR Maris Mead NP [address] [address] Referral ID Status Reason Start Date Expiration Date Visits Requested Visits Authorized [id number] Authorization Not Required 09/02/2020 1 1 Reason for Visit * (Routine) - Authorization Not Required Specialty Diagnoses / Procedures Referred By Contac t Referred To Contact Diagnoses Atrial fibrillation (HCC-CMS) Procedures CARDIAC IMPLANT CHECK - REMOTE MONITOR Maris Mead NP [address] [address] Referral ID Status Reason Start Date Expiration Date Visits Requested Visits Authorized [id number] Authorization Not Required 09/02/2020 1 1 Encounter Details Date Type Department Care Team (Latest Contact Info) Description 10/05/2020 3:45 EDT - 10/05/2020 23:59 EDT Hospital Encounter [facility] Remote Device [address] [place] [address] Atrial fibrillation (HCC-CMS) Discharge Disposition: Home or [...] CARDIAC IMPLANT CHECK - REMOTE MONITOR Routine 10/05/2020 10:56 EDT Atrial fibrillation ([facility]) documented in this encounter Results * CARDIAC IMPLANT CHECK - REMOTE - LOOP RECORDER (ILR) (10/05/2020 10:56 EDT) Anatomical Region Laterality Modality Device Narrative 10/05/2020 21:03 EDT I have reviewed the implantable loop recorder interrogation. ??I agree with the findings. SCHEDULED ILR REMOTE TRANSMISSION. 0 EPISODES RECORDED SINCE LAST INTERROGATION. BATTERY STATUS OK. NEXT CHECK IN 1 MO. DC Maris Mead NP CV IMPLANTABLE CARDI AC DEVICE documented in this encounter Visit Diagnoses Diagnosis Atrial fibrillation ([facility]) Atrial fibrillation documented in this encounter Care Teams Internal Specialist Relationship Specialty Start Date End Date Purvi Amador NP [address] [place] [address] PCP - General 08/18/14 documented as of this encounter
--- OUTSIDE RECORDS SUMMARY | 2023-08-27 18:15 | XMS_ITS | Encounter Summary ---
Author Organization [facility] Address [address] [place] [address] Care Team Providers Care Cell Stripper Final Name Role Phone Purvi Amador CHIEF YEOMAN Primary Care Provider [phone] Reason for Visit * Reason Comments Shoulder Pain right * Referral (Routine) - Receiving Office to Obtain Authorization Specialty Diagnoses / Procedures Referred By Niko baldwin Referred To Contact Orthopedic Surgery Diagnoses Pain in right shoulder Purvi Amador, CHIEF YEOMAN [address] [place] [address] [facility] Upper Extremity [address] [place] [address] Referral ID Status Reason Start Date Expiration Date Visits Requested Visits Authorized [id number] Receiving Office to Obtain Authorization 1 1 Encounter Details Date Type Department Care Team (Latest Contact Info) Description 11/15/2022 10:00 EDT Office Visit [facility] Physical Medicine & Rehabilitation - [place] [address] Socorro Patrick MD [address] [place] [id number] Chronic right shoulder pain (Primary Dx); Subacromial impingement of right shoulder; Incomplete tear of right rotator cuff, unspecified whether traumatic Social History Tobacco Use Types Packs/Day Years [...] No 01/19/2020 documented as of this encounter Progress Notes * Socorro Patrick MD - 11/15/2022 1000 EDT Michael Carter Courtney Date of Visit: 11/15/2022 Chief Complaint Patient presents with ??? Shoulder Pain right HPI: Michael Abraham) is a 77 y.o. right-handed male referred by Purvi Amador NP for right shoulder pain. He sustained an acute right shoulder injury in a fall while skiing in May 2022. He recalls taking a hard fall in which both arms were extended in front of his body, like Superman, with immediate pain in the right shoulder. He recalls two previous falls with right shoulder injuries, each managed conservatively with essentially full recovery. He has been working with a chiropractor, Rafa Natarajan, in [place] with good improvement. Today he reports persistent pain in the superolateral shoulder, worst with active abduction and reaching overhead. He estimates his current level of shoulder fu nction at 60% of normal. He has a history of left shoulder arthroscopy with rotator cuff repair and biceps tenodesis per approximately 6 years ago. He recovered fully with no long-term sequelae. He has no prior history of right shoulder surgery. 12pt review of systems was completed and negative except as above. PMH, PSH, SH, FH reviewed with patient and in medical record. Current Outpatient Medications on File Prior to Visit Medication Sig Dispense Refill ??? betamethasone dipropionate 0.05 % lotion Apply topically 2 times daily ??? cetirizine (ZYRTEC) 10 mg tablet Take 10 mg by mouth daily. (Patient not taking: Reported on 01/24/2021) ??? ELIQUIS 5 mg tablet Take 1 Tablet by mouth 2 times daily. ??? lisinopril (PRINIVIL, ZESTRIL) 2.5 mg tablet Take 1 Tablet by mouth daily. ??? metroNIDAZOLE (METROGEL) 1 % gel Apply topically daily. Use a thin layer to affected areas after washing ??? NONFORMULARY Take by mouth daily green Vibrance - supplements ??? TAMSulosin (FLOMAX) 0.4 mg capsule Take 1 Capsule by mouth daily. ??? venlafaxine (EFFEXOR-XR) 150 mg XR capsule Take 1 Capsule by mouth daily. No current facility-administered medications on file prior to visit. Allergies Allergen Reactions ??? Ambien [Zolpidem] Other (See Comments) Hallucinations ??? Penicillins EXAM: General: Well-nourished and well developed. No acute distress. HEENT: NCAT, eyelids and conjunctiva normal, external ears normal, normal hearing to voice CV: No upper extremity edema Resp: Normal respiratory rhythm and depth Skin: L shoulder arthroscopy scars well healed. No evidence of rash or infection. Psych: Appropriate affect, insight intact MSK/Neuro: Normal appearance to b/l shoulders and cervicothoracic spine. Normal muscle bulk and tone throughout BUE. No tenderness to palpation about either shoulder girdle. FROM b/l shoulders. No scapular winging. 5/5 strength throughout velasco myotomes of BUE. POS R Neer's, empty can, Casisus's test. NEG R French-Talha, Speed's, lift off test. Unremarkable L shoulder exam. IMAGING: MRI R Shoulder 10/25/2022: Reviewed independently by me. 1. Supraspinatus tendinosis with high-grade articular sided tearing and a suspected full-thickness component. 2. Moderate subscapularis tendinosis with low-grade interstitial tearing at the footprint. 3. Moderate infraspinatus tendinosis without tear. 4. Degeneration of the long head of biceps tendon. Medial subluxation at the upper bicipital groovewith longitudinal fissuring. 5. Labral degeneration and degenerative tearing of the posterior superior labrum. 6. Small glenohumeral joint effusion. 7. Moderate fluid within the subacromial subdeltoid bursa. This may be related to the suspected focal full-thickness supraspinatus tendon tear. 8. Moderate acromioclavicular hypertrophic arthrosis. XR R Shoulder 05/21/2022: Reviewed independently by me. No acute fracture or malalignment. Enthesopathic changes and small calcific densities near the greater tuberosity. Miild degenerative changes inthe acromioclavicular and glenohumeral joints. ASSESSMENT/PLAN: Karson is a 77-year-old right-handed male who sustained an acute right shoulder injury in a fall while skiing 6 months ago. He has noted some improvement with healthcare management consultant/physical therapy/home exercise program, and remains with some persistent subacromial impingement. There is also diffuse rotator cuff tendinosis, much of which was likely present to some degree before the fall. Reviewed images, anatomy, diagnosis, and treatment options in detail with patient. Recommend continued conservative treatment with exercises focused on scapular stabilization and shoulder girdle strengthening. Could consider a trial of right subacromial corticosteroid injection if desired, but this would not eliminate the need for continued PT/HEP. There is no indication for surgical referral at this time. He may continue all activity as tolerated. He may follow- up in this clinic as needed if symptoms persistor worsen. Patient indicated understanding and agreement with plan. All questions answered. I spent a total of 45 minutes in the care of this patient today including review of medical records, imaging, history, evaluation, counseling, coordination of care, and documentation. Socorro Patrick MD Physical Medicine and Rehabilitation documented in this encounter Plan of Treatment Not on file documented as of this encounter Visit Diagnoses Diagnosis Chronic right shoulder pain- Primary Pain in joint, shoulder region Subacromial impingement of right shoulder Incomplete tear of right rotator cuff, unspecified whether traumatic documented in this encounter Care Teams Cell Stripper Final Relationship Specialty Start Date End Date Purvi Amador NP [address] [place] [address] PCP - General 08/18/14 documented as of this encounter
--- OUTSIDE RECORDS SUMMARY | 2023-08-27 18:15 | XMS_ITS | Encounter Summary ---
Author Organization [facility] Address [address] [place] [address] Care Team Providers Care Crossing Flagman Name Role Phone Purvi Amador BEDSPREAD FOLDER Primary Care Provider [phone] Encounter Details Date Type Department Care Team (Late st Contact Info) Description 07/29/2020 Lab Requisition [facility] Pathology & Laboratory Medicine - [address] [id number] Outr Resulting Lab, Provider Social History Tobacco [...] Associated Diagnosis Comments PSA TOTAL, DIAGNOSTIC Routine 07/28/2020 8:10 EDT documented in this encounter Results * PSA TOTAL, DIAGNOSTIC (07/28/2020 8:10 EDT) PSA 2.1 0.0 - 6.5 ng/mL 07/29/2020 17:53 EDT [facility] Blood VENOUS BLOOD / Unknown 07/28/2020 8:10 EDT 07/29/2020 16:20 EDT Narrative [facility] - 07/29/2020 17:53 EDT NOTE: Serum PSA concentration should not be interpreted as absolute evidence for the presence or absence of malignant disease. Assayed on [employer] XPT using chemiluminescent technology.??Values obtained by using different assay methods cannot be used interchangeably. Provider Outr Resulting Lab CHEMISTRY & BLOOD GAS ORDERABLES [facility] [address] [place] [address] documented in this encounter Visit Diagnoses Not on filedocumented in this encounter Care Teams Crossing Flagman Relationship Specialty Start Date End Date Purvi Amador NP [address] [place] [address] PCP - General 08/18/14 documented as of this encounter
--- OUTSIDE RECORDS SUMMARY | 2023-08-27 18:15 | XMS_ITS | Encounter Summary ---
Author Organization [facility] Address [address] [place] [address] Care Team Providers Care Stockroom Keeper Name Role Phone Purvi Amador NP Primary Care Provider [phone] Reason for Referral * (Routine) - Closed Specialty Diagnoses / Procedures Referred By Contac t Referred To Contact Diagnoses Atrial fibrillation (HCC-CMS) Procedures CARDIAC IMPLANT CHECK - REMOTE MONITOR Maris Mead NP [address] [address] Referral ID Status Reason Start Date Expiration Date Visits Re quested Visits Authorized [id number] Closed 06/30/2020 1 1 Reason for Visit * (Routine) - Closed Specialty Diagnoses / Procedures Referred By Contac t Referred To Contact Diagnoses Atrial fibrillation (HCC-CMS) Procedures CARDIAC IMPLANT CHECK - REMOTE MONITOR Maris Mead NP [address] [address] Referral ID Status Reason Start Date Expiration Date Visits Re quested Visits Authorized [id number] Closed 06/30/2020 1 1 Encounter Details Date Type Department Care Team (Latest Contact Info) Description 08/02/2020 6:30 EDT - 08/02/2020 23:59 EDT Hospital Encounter [facility] Remote Device [address] [place] [address] Atrial fibrillation (HCC-CMS) Discharge Disposition: Home or [...] CARDIAC IMPLANT CHECK - REMOTE MONITOR Routine 08/02/2020 13:27 EDT Atrial fibrillation (HCC-CMS) documented in this encounter Results * CARDIAC IMPLANT CHECK - REMOTE - LOOP RECORDER (ILR) (08/02/2020 13:27 EDT) Anatomical Region Laterality Modality Device Narrative 08/03/2020 12:46 EDT I have reviewed the implantable loop recorder interrogation. ??I agree with the findings. SCHEDULED ILR REMOTE TRANSMISSION. 0 EPISODES RECORDED SINCE LAST INTERROGATION. BATTERY STATUS OK. NEXT CHECK IN 1 MO. DC Maris Mead NP CV IMPLANTABLE CARDI AC DEVICE documented in this encounter Visit Diagnoses Diagnosis Atrial fibrillation ([facility]) Atrial fibrillation documented in this encounter Care Teams Stockroom Keeper Relationship Specialty Start Date End Date Purvi Amador NP [address] [place] [address] PCP - General 08/18/14 documented as of this encounter
--- OUTSIDE RECORDS SUMMARY | 2023-08-27 18:15 | XMS_ITS | Encounter Summary ---
Author Organization Health system Address [address] [place] [address] Care Team Providers Care General Sales Manager Name Role Phone Purvi Amador SECURITY CHIEF MUSEUM Primary Care Provider [phone] Reason for Referral * (Routine) - Closed Specialty Diagnoses / Procedures Referred By Contac t Referred To Contact Diagnoses Atrial fibrillation (HCC-CMS) Procedures CARDIAC IMPLANT CHECK - REMOTE MONITOR Maris Mead NP [address] [address] Referral ID Status Reason Start Date Expiration Date Visits Re quested Visits Authorized [id number] Closed 03/24/2020 1 1 Reason for Visit * (Routine) - Closed Specialty Diagnoses / Procedures Referred By Contac t Referred To Contact Diagnoses Atrial fibrillation (HCC-CMS) Procedures CARDIAC IMPLANT CHECK - REMOTE MONITOR Maris Mead NP [address] [address] Referral ID Status Reason Start Date Expiration Date Visits Re quested Visits Authorized [id number] Closed 03/24/2020 1 1 Encounter Details Date Type Department Care Team (Latest Contact Info) Description 04/26/2020 5:15 EDT - 04/26/2020 23:59 EDT Hospital Encounter [facility] Remote Device [address] [place] [address] Atrial fibrillation (HCC-CMS) Discharge Disposition: Home or [...] CARDIAC IMPLANT CHECK - REMOTE MONITOR Routine 04/26/2020 11:18 EDT Atrial fibrillation ([facility]) documented in this encounter Results * CARDIAC IMPLANT CHECK - REMOTE - LOOP RECORDER (ILR) (04/26/2020 11:18 EDT) Anatomical Region Laterality Modality Device Narrative 04/28/2020 9:32 EDT I have reviewed the implantable loop recorder interrogation. ??I agree with the findings. SCHEDULED ILR REMOTE TRANSMISSION. 0 EPISODES RECORDED SINCE LAST INTERROGATION. BATTERY STATUS OK. NEXT CHECK IN 1 MO. DC Maris Mead NP CV IMPLANTABLE CARDI AC DEVICE documented in this encounter Visit Diagnoses Diagnosis Atrial fibrillation ([facility]) Atrial fibrillation documented in this encounter Care Teams General Sales Manager Relationship Specialty Start Date End Date Purvi Amador NP [address] [place] [address] PCP - General 08/18/14 documented as of this encounter
--- OUTSIDE RECORDS SUMMARY | 2023-08-27 18:15 | XMS_ITS | Encounter Summary ---
Author Organization [facility] Address [address] [place] [address] Care Team Providers Care Maintenance Machinist Name Role Phone Purvi Amador NP Primary Care Provider [phone] Reason for Referral * (Routine) - Closed Specialty Diagnoses / Procedures Referred By Contac t Referred To Contact Diagnoses Atrial fibrillation (HCC-CMS) Procedures CARDIAC IMPLANT CHECK - REMOTE MONITOR Maris Mead NP [address] [address] Referral ID Status Reason Start Date Expiration Date Visits Re quested Visits Authorized [id number] Closed 04/26/2020 1 1 Reason for Visit * (Routine) - Closed Specialty Diagnoses / Procedures Referred By Contac t Referred To Contact Diagnoses Atrial fibrillation (HCC-CMS) Procedures CARDIAC IMPLANT CHECK - REMOTE MONITOR Maris Mead NP [address] [address] Referral ID Status Reason Start Date Expiration Date Visits Re quested Visits Authorized [id number] Closed 04/26/2020 1 1 Encounter Details Date Type Department Care Team (Latest Contact Info) Description 05/30/2020 4:45 EDT - 05/30/2020 23:59 EDT Hospital Encounter [facility] Remote Device [address] [place] [address] Atrial fibrillation (HCC-CMS) Discharge Disposition: Home or [...] CARDIAC IMPLANT CHECK - REMOTE MONITOR Routine 05/30/2020 13:04 EDT Atrial fibrillation (HCC-CMS) documented in this encounter Results * CARDIAC IMPLANT CHECK - REMOTE - LOOP RECORDER (ILR) (05/30/2020 13:04 EDT) Anatomical Region Laterality Modality Device Narrative 06/02/2020 8:58 EDT I have reviewed the implantable loop recorder interrogation. ??I agree with the findings. SCHEDULED ILR REMOTE TRANSMISSION. 0 EPISODES RECORDED SINCE LAST INTERROGATION. BATTERY STATUS OK. NEXT CHECK IN 1 MO. DC Maris Mead NP CV IMPLANTABLE CARDI AC DEVICE documented in this encounter Visit Diagnoses Diagnosis Atrial fibrillation ([facility]) Atrial fibrillation documented in this encounter Care Teams Maintenance Machinist Relationship Specialty Start Date End Date Purvi Amador NP [address] [place] [address] PCP - General 08/18/14 documented as of this encounter
--- OUTSIDE RECORDS SUMMARY | 2023-08-27 18:15 | XMS_ITS | Encounter Summary ---
Author Organization [facility] Address [address] [place] [address] Care Team Providers Care Agency Sales Development Associate Name Role Phone Purvi Amador NP Primary Care Provider [phone] Reason for Referral * (Routine) - Closed Specialty Diagnoses / Procedures Referred By Contac t Referred To Contact Diagnoses Atrial fibrillation ([facility]) Procedures CARDIAC IMPLANT CHECK - REMOTE MONITOR Maris Mead NP [address] [address] Referral ID Status Reason Start Date Expiration Date Visits Re quested Visits Authorized [id number] Closed 01/18/2020 1 1 Reason for Visit * (Routine) - Closed Specialty Diagnoses / Procedures Referred By Contac t Referred To Contact Diagnoses Atrial fibrillation (HCC-CMS) Procedures CARDIAC IMPLANT CHECK - REMOTE MONITOR Maris Mead NP [address] [address] Referral ID Status Reason Start Date Expiration Date Visits Re quested Visits Authorized [id number] Closed 01/18/2020 1 1 Encounter Details Date Type Department Care Team (Latest Contact Info) Description 02/19/2020 6:15 EST - 02/19/2020 23:59 EST Hospital Encounter [facility] Remote Device [address] [place] [address] Atrial fibrillation (HCC-CMS) Discharge Disposition: Home or [...] CARDIAC IMPLANT CHECK - REMOTE MONITOR Routine 02/19/2020 13:55 EST Atrial fibrillation (HCC-CMS) documented in this encounter Results * CARDIAC IMPLANT CHECK - REMOTE - LOOP RECORDER (ILR) (02/19/2020 13:55 EST) Anatomical Region Laterality Modality Device Narrative 02/23/2020 10:51 EST I have reviewed the implantable loop recorder interrogation. ??I agree with the findings. ?? SCHEDULED ILR REMOTE TRANSMISSION. NEW ONSET OF AF- ??PT NOT ANTI COAGULATED. 1 AF ??EPISODE RECORDED SINCE LAST INTERROGATION . AVERAGE V RATES 95 BPM, DURATION 20 MINS. AT/AF BURDEN 0.0% BATTERY STATUS OK. NEXT CHECK IN 1 MO. DC BUNNY DE SANTIAGO RN/ DR CHANDRA NOTIFIED. Maris Mead NP CV IMPLANTABLE CARDI AC DEVICE documented in this encounter Visit Diagnoses Diagnosis Atrial fibrillation ([facility]) Atrial fibrillation documented in this encounter Care Teams Agency Sales Development Associate Relationship Specialty Start Date End Date Purvi Amador, LEANDRO [address] [place] [address] PCP - General 08/18/14 documented as of this encounter
--- OUTSIDE RECORDS SUMMARY | 2023-08-27 18:15 | XMS_ITS | Referral Summary ---
Author Organization [facility] Address [address] [place] [address] Care Team Providers Care Supervisor Car And Yard Name Role Phone Purvi Amador ASSOCIATE PRODUCT MANAGER Primary Care Provider [phone] Encounters Date Type Department Care Team Description 08/27/2023 Lab Requisition [facility] Pathology & Laboratory Medicine - [address] [address] Outr Resulting Lab, Provider from Last 3 Months Allergies Active Allergy Reactions Criticality Noted Date [...] Noted Date Diagnosed Date Paroxysmal atrial fibrillation ([facility]) Cerebrovascular accident (CVA) ([facility]) 020 Overview: Added automatically from request for surgery [id number] Rotator cuff tear 10/19/2014 Shoulder impingement 10/19/2014 Vertigo 09/16/2014 Asymmetrical left sensorineural hearing loss 07/2014 Social History Tobacco Use Types Packs/Day Years [...] 12:25 EDT Sexual Orientation Not on file Last Filed Vital Signs Vital Sign Reading [...] Body Mass Index 22.38 06/27/2017 1509 EDT Functional Status Functional Status Response Date of [...] concentrating, remembering, or making decisions? No 01/19/2020 Plan of Treatment Not on file Medical Devices Implanted Type Area Assistant Press Operator Offset Device Identifier Shelf Expiration Date Model / Serial / Lot System Emergency Response Technician Wireless Reveal Linq - [id number] Implanted:Qt y: 1 on 08/12/2019 by Keyon Larson MD at [facility] Implantable Loop Recorder N/A: Chest [employer] [id number] 04/24/2020 [employer] / [id number] S / Advance Directives For more information, please contact: [phone] * Full Code (Latest Code Status on File) Date Activated Date Inactivated Comments 10/19/2014 6:22 10/19/2014 16:34 Question Answer Comments Reason for decision includes: Full code consistent with overall plan of care Who participated in the discussion? Not Discusse d Care Teams Supervisor Car And Yard Relationship Specialty Start Date End Date Purvi Amador NP [address] [place] [address] [facility] - General 08/18/14
--- OUTSIDE RECORDS SUMMARY | 2023-08-27 18:15 | XMS_ITS | Encounter Summary ---
Author Organization [facility] Address [address] [place] [address] Care Team Providers Care Field Technician Name Role Phone Purvi Amador PET TRAINING INSTRUCTOR Primary Care Provider [phone] Reason for Visit * Reason Comments Atrial Fibrillation I am doing fine. Tel evideo Encounter Details Date Type Department Care Team (Late st Contact Info) Description 01/19/2020 9:00 EST Telemedicine [facility] Cardiology - [address] [address] Lion Mitchell MD [address] [place] [address] [address] [place] [address] Paroxysmal atrial fibrillation (HCC-CMS) (Primary Dx) Social History Tobacco Use Types [...] * Patient Instructions* Lion Mitchell MD - 01/19/2020 9:00 EST You have been documented to have atrial fibrillation that is intermittent and likely related to your TIA. Based on this, you need to take an anticoagulant and I have recommended that you initiate Eliquis (apixaban) 5 mg twice a day. You would discontinue the aspirin with this. We will call your primary care provider about providing the prescription; otherwise, I will be happy to provide this. Otherwise, I recommend that you continue your activities as safely as possible in the setting of a blood thinner. I will be happy to see you in 1 year or sooner if necessary. documented in this encounter Progress Notes * Lion Mitchell MD - 01/19/2020 0900 EST Subjective: Patient ID: Michael Valdez is an 74 y.o. man with a history of TIA and now with atrial fibrillation documented on implantable loop recorder.. Chief Complaint Patient presents with ??? Atrial Fibrillation I am doing fine. Televideo The concept of ???Telemedicine?? has been described to the patient.? Patient has been informed of the anticipated benefits and possible risks.? Patient understands the information provided regardingtelemedicine, has had the opportunity to ask questions about this information, and all questions have been answered to patient???s satisfaction. Patient consents for the use of telemedicine in his/her medical care and authorizes the transmission of any relevant medical information to providers and their staff involved in patient???s medical or mental health care. TELEMEDICINE VIDEO VISIT Today's visit was provided through telemedicine video conferencing: The location of the patient : Home in [facility] The location of the provider: Home office. The following staff and their role did participate in today's encounter visit: Lion Mitchell MD [facility] This patient has been active and healthy throughout his life. He had a remote history of smoking. His blood pressure has been borderline. About 14 months ago, he had a TIA, treated at [facility], recededin 3 hours. This happened while up on ladder painting, had been twisting neck. Symptoms of left sided numbness, paresthesias, able to move. Followed by neurologist, Dr Perry, with work up including echo. No recurrence. Treated with ASA, treatment of cholesterol (rosuvastatin 5 mg weekly, stopped for muscle ache), and lisinopril for hypertension.. He underwent placement of an implantable loop recorder on 08/12/2019. On 01/18/2020, the ILR was interrogated based on an alert transmission, with the finding of 20 minutes of atrial fibrillation with an average heart rate of 95 bpm. He exercises regularly, skis alpine and nordic, cycle, row, cross fit (something almost every day). He drinks no alcohol and follows a strict diet. Patient Active Problem List Diagnosis ??? Vertigo ??? Asymmetrical left sensorineural hearing loss ??? Rotator cuff tear ??? Shoulder impingement ??? Cerebrovascular accident (CVA) (HCC-CMS) ??? Paroxysmal atrial fibrillation (HCC-CMS) Past Medical History: Diagnosis Date ??? Cancer (HCC-CMS) ??? Environmental allergies ??? Heartburn ??? Hypertension [...] years: 19.00 ??? Smokeless tobacco: Never Used Substance Use Topics ??? Alcohol use: No ??? Drug use: No He is a contractor, semi-retired. Current Outpatient Medications on File Prior to Visit Medication Sig Dispense Refill ??? betamethasone dipropionate 0.05 % lotion Apply topically 2 times daily ??? cetirizine (ZYRTEC) 10 mg tablet Take 10 mg by mouth daily. ??? lisinopril (PRINIVIL, ZESTRIL) 2.5 mg [...] (See Comments) Hallucinations ??? Penicillins ROS - A full 10-system ROS was obtained, positive for: Flomax for BPH, 1-2x nocturia. Orthostatic hypotension. Left ankle injury with 5 operations. Objective: There were no vitals taken for this visit. Physical Exam He is in no distress. He was not otherwise examined. Accessory clinical data: 01/15/20, at 14;48, there was atrial fibrillation the lasted 20 minutes as documented on the implantable loop recorder. A 12-lead EKG from 10/14/2014 shows sinus rhythm. I do not have 30 records from [facility], where he underwent ultrasound and other evaluation. Assessment: This patient has a history of a single TIA, with negative evaluation up until an implantable loop recorder (ILR) demonstrated 20 minutes of atrial fibrillation on the fourth of this month. This was at 2 PM and was without symptoms. I had a long talk with the patient about atrial fibrillation and risk of stroke. Given his TIA, hisage and hypertension but he has a CHADS VASc score of 5. Anticoagulation is strongly recommended and I have explained the mechanism for his elevated risk of stroke. I also explained that the aspirin should be discontinued. I have recommended apixaban, 5 mg twice daily. He will follow-up with his primary care provider to obtain this prescription and clear this plan with his neurologist. If there is any problem, I would be happy to provide the prescription. At the end of our visit he had no precautions. I will plan to see him in 1 year or sooner if necessary. Plan: (I48.0) Paroxysmal atrial fibrillation (HCC-CMS) (primary encounter diagnosis) Lion Mitchell MD No orders of the defined types were placed in this encounter. documented in this encounter Plan of Treatment Not on file documented as of this encounter Visit Diagnoses Diagnosis Paroxysmal atrial fibrillation (HCC-CMS)- Primary Atrial fibrillation documented in this encounter Care Teams Field Technician Relationship Specialty Start Date End Date Purvi Amador, LEANDRO [address] [place] [address] PCP - General 08/18/14 documented as of this encounter
--- OUTSIDE RECORDS SUMMARY | 2023-08-27 18:15 | XMS_ITS | Encounter Summary ---
Author Organization [facility] Address [address] [place] [address] Care Team Providers Care Vice President Global Advertising Sales Name Role Phone Purvi Amador SUPERVISOR [employer] Primary Care Provider [phone] Encounter Details Date Type Department Care Team (Late st Contact Info) Description 11/03/2020 Lab Requisition [facility] Pathology & Laboratory Medicine - [facility] [address] [place] [address] Marisel Davis PA-C [address] [place], [place] [id number] Neoplasm of uncertain behavior of skin Social [...] Date/Time Associated Diagnosis Comments SURGICAL PATHOLOGY Today 11/02/2020 13 :24 EDT Neoplasm of uncertain behavior of skin documented in this encounter Results * SURGICAL PATHOLOGY (11/02/2020 13:24 EDT) Note to Patient The following pathology results have been interpreted by your pathologist and may be available to you before your health provider has had the opportunity to review them. Please allow time for your provider to receive these results and explore management options, if applicable. 11/04/2020 8:55 [facility] Final Diagnosis A. SKIN OF PHILTRAL RIDGE, LEFT, SHAVE BIOPSY: - Basal cell carcinoma, nodular type, closely approximating biopsy base. See microscopic. 11/04/2020 8:55 [facility] Attestation By the signature below, the attending physician certifies that they have 1) personally conducted a gross and/or microscopic examination of the described specimen(s), and/or personally interpreted the results of laboratory testing of the described specimen(s), and 2) personally rendered or confirmed the above diagnosis. 11/04/2020 8:55 [facility] at 0855 Microscopic Description Multiple levels are reviewed. The basal cell carcinoma extends to within 0.01 mm of the biopsy base. 11/04/2020 8:55 [facility] Clinical History Verrucous papule; DDx: verruca vulgaris vs SCC; notes: Mohs; clinical diagnosis code: D48.5 11/04/2020 8:55 [facility] Gross Description A. Received in formalin labelled with proper patient identification (initials S, W) and left philtral ridge is a slightly firm pale avelar ovoid skin shave, 0.4 x 0.3 x 0.1 cm. The margin is inked. Entirely submitted intact in A1. DINESH MUNGUIA(ASCP) 11/03/2020 8:24 11/04/2020 8:55 [facility] Performing Lab [facility] 11/04/2020 8:[address] [facility] Scanned Images 11/04/2020 8:[address] [facility] Tissue TISSUE SPECIMEN FROM SKIN / Unknown 11/02/2020 13:24 EDT 11/03/2020 8:11 EDT Marisel Davis PA-C PATHOLOGY ORD ERABLES [facility] [address] [place] [address] documented in this encounter Visit Diagnoses Diagnosis Neoplasm of uncertain behavior of skin documented in this encounter Care Teams Vice President Global Advertising Sales Relationship Specialty Start Date End Date Purvi Amador NP [address] [place] [address] PCP - General 08/18/14 documented as of this encounter
--- OUTSIDE RECORDS SUMMARY | 2023-08-27 18:15 | XMS_ITS | Encounter Summary ---
Author Organization [facility] Address [address] [place] [address] Care Team Providers Care Process Lead Name Role Phone Purvi Amador NP Primary Care Provider [phone] Reason for Referral * (Routine) - Closed Specialty Diagnoses / Procedures Referred By Contac t Referred To Contact Diagnoses Atrial fibrillation (HCC-CMS) Procedures CARDIAC IMPLANT CHECK - REMOTE MONITOR Maris Mead NP [address] [address] Referral ID Status Reason Start Date Expiration Date Visits Re quested Visits Authorized [id number] Closed 02/19/2020 1 1 Reason for Visit * (Routine) - Closed Specialty Diagnoses / Procedures Referred By Contac t Referred To Contact Diagnoses Atrial fibrillation (HCC-CMS) Procedures CARDIAC IMPLANT CHECK - REMOTE MONITOR Maris Mead NP [address] [address] Referral ID Status Reason Start Date Expiration Date Visits Re quested Visits Authorized [id number] Closed 02/19/2020 1 1 Encounter Details Date Type Department Care Team (Latest Contact Info) Description 03/24/2020 4:45 EST - 03/24/2020 23:59 EST Hospital Encounter [facility] Remote Device [address] [place] [address] Atrial fibrillation (HCC-CMS) Discharge Disposition: Home or [...] CARDIAC IMPLANT CHECK - REMOTE MONITOR Routine 03/24/2020 11:35 EST Atrial fibrillation (HCC-CMS) documented in this encounter Results * CARDIAC IMPLANT CHECK - REMOTE - LOOP RECORDER (ILR) (03/24/2020 11:35 EST) Anatomical Region Laterality Modality Device Narrative 03/25/2020 17:35 EST I have reviewed the implantable loop recorder interrogation. ??I agree with the findings. SCHEDULED ILR REMOTE TRANSMISSION. 0 EPISODES RECORDED SINCE LAST INTERROGATION. BATTERY STATUS OK. NEXT CHECK IN 1 MO. DC Maris Mead NP CV IMPLANTABLE CARDI AC DEVICE documented in this encounter Visit Diagnoses Diagnosis Atrial fibrillation ([facility]) Atrial fibrillation documented in this encounter Care Teams Process Lead Relationship Specialty Start Date End Date Purvi Amador NP [address] [place] [address] PCP - General 08/18/14 documented as of this encounter
--- OUTSIDE RECORDS SUMMARY | 2023-08-27 18:15 | XMS_ITS | Encounter Summary ---
Author Organization Health system Address [address] [place] [address] Care Team Providers Care Mica Plate Layer Name Role Phone Purvi Amador NP Primary Care Provider [phone] Reason for Referral * (Routine) - Closed Specialty Diagnoses / Procedures Referred By Contac t Referred To Contact Diagnoses Atrial fibrillation ([facility]) Procedures CARDIAC IMPLANT CHECK - REMOTE MONITOR Maris Mead NP [address] [address] [address] Referral ID Status Reason Start Date Expiration Date Visits Re quested Visits Authorized [id number] Closed 09/14/2019 1 1 Reason for Visit * (Routine) - Closed Specialty Diagnoses / Procedures Referred By Contac t Referred To Contact Diagnoses Atrial fibrillation (HCC-CMS) Procedures CARDIAC IMPLANT CHECK - REMOTE MONITOR Maris Mead NP [address] [address] Referral ID Status Reason Start Date Expiration Date Visits Re quested Visits Authorized [id number] Closed 09/14/2019 1 1 Encounter Details Date Type Department Care Team (Latest Contact Info) Description 09/14/2019 10:04 EDT - 09/14/2019 23:59 EDT Hospital Encounter [facility] Remote Device [address] [place] [address] Atrial fibrillation (HCC-CMS) Discharge Disposition: Home or [...] CARDIAC IMPLANT CHECK - REMOTE MONITOR Routine 09/14/2019 10:05 EDT Atrial fibrillation (HCC-CMS) documented in this encounter Results * CARDIAC IMPLANT CHECK - REMOTE - LOOP RECORDER (ILR) (09/14/2019 10:05 EDT) Anatomical Region Laterality Modality Device Narrative 09/29/2019 8:16 EDT I have reviewed the implantable loop recorder interrogation. ??I agree with the findings. SCHEDULED ILR REMOTE TRANSMISSION. 0 EPISODES RECORDED SINCE LAST INTERROGATION. BATTERY STATUS OK. NEXT CHECK IN 1 MO. DC Maris Mead NP CV IMPLANTABLE CARDI AC DEVICE documented in this encounter Visit Diagnoses Diagnosis Atrial fibrillation (HCC-CMS) Atrial fibrillation documented in this encounter Care Teams Mica Plate Layer Relationship Specialty Start Date End Date Purvi Amador NP [address] [place] [address] PCP - General 08/18/14 documented as of this encounter
--- OUTSIDE RECORDS SUMMARY | 2023-08-27 18:15 | XMS_ITS | Encounter Summary ---
Author Organization [facility] Address [address] [place] [address] Care Team Providers Care Semiautomatic Stitcher Operator Name Role Phone Purvi Amador TOP AND TRIM WORKER Primary Care Provider [phone] Reason for Visit * Reason Onset Date Comments Coordination Of Care 01/24/2021 Encounter Details Date Type Department Care Team (Late st Contact Info) Description 01/24/2021 Telephone [facility] Cardiology - [address] [place], [place] [id number] Mello Barahona, RN Coordination Of Care Social History Tobacco Use Types Packs/Day [...] No 01/19/2020 documented as of this encounter Miscellaneous Notes * Telephone Encounter - Mello Barahona, RN - 01/24/2021 1007 EST Want Ad Clerk faxed office visit note from 01/[address] Mitchell, to pt's PCP. Per Dr. Mitchell, pt requires follow up with BP through PCP office. documented in this encounter Plan of Treatment Not on file documented as of this encounter Visit Diagnoses Not on filedocumented in this encounter Care Teams Semiautomatic Stitcher Operator Relationship Specialty Start Date End Date Purvi Amador NP [address] [place] [address] PCP - General 08/18/14 documented as of this encounter
--- OUTSIDE RECORDS SUMMARY | 2023-08-27 18:15 | XMS_ITS | Encounter Summary ---
Author Organization [facility] Address [address] [place] [address] Care Team Providers Care Laborer Brooder Farm Name Role Phone Purvi Amador ASSESSMENT CONSULTANT Primary Care Provider [phone] Reason for Visit * (Routine/Next Available) - Receiving Office to Obtain Authorization Specialty Diagnoses / Procedures Referred By Niko baldwin Referred To Contact Procedures XR OUTSIDE IMAGES RIGHT UPPER EXTREMITY Unknown, Provider, Referral ID Status Reason Start Date Expiration Date Visits Requested Visits Authorized [id number] Receiving Office to Obtain Authorization 08/07/2022 1 1 Encounter Details Date Type Department Care Team (Latest Contact Info) Description 05/21/2022 - 05/21/2022 23:59 EDT Hospital Encounter [facility] Secondary [place] Discharge Disposition: Home or Self Care Social [...] Procedure Name Priority Date/Time Associated Diagnosis Comments XR OUTSIDE IMAGES RIGHT UPPER EXTREMITY Routine 05/21/2022 17:39 EDT documented in this encounter Results * XR OUTSIDE IMAGES RIGHT UPPER EXTREMITY (05/21/2022 17:39 EDT) Narrative 08/07/2022 17:40 EDT This is a non-reportable exam. Provider Unknown MD FABIAN OTHER IMAGING OR DERABLES documented in this encounter Visit Diagnoses Not on filedocumented in this encounter Care Teams Laborer Brooder Farm Relationship Specialty Start Date End Date Purvi Amador NP [address] [place] [address] PCP - General 08/18/14 documented as of this encounter
--- OUTSIDE RECORDS SUMMARY | 2023-08-27 18:15 | XMS_ITS | Encounter Summary ---
Author Organization [facility] Address [address] [place] [address] Care Team Providers Care Rod Puller Name Role Phone Purvi Amador NP Primary Care Provider [phone] Reason for Referral * (Routine) - Closed Specialty Diagnoses / Procedures Referred By Contac t Referred To Contact Diagnoses Atrial fibrillation (HCC-CMS) Procedures CARDIAC IMPLANT CHECK - REMOTE MONITOR Maris Mead NP [address] [employer] [address] [address] Referral ID Status Reason Start Date Expiration Date Visits Re quested Visits Authorized [id number] Closed 05/30/2020 1 1 Reason for Visit * (Routine) - Closed Specialty Diagnoses / Procedures Referred By Contac t Referred To Contact Diagnoses Atrial fibrillation (HCC-CMS) Procedures CARDIAC IMPLANT CHECK - REMOTE MONITOR Maris Mead NP [address] [address] [address] Referral ID Status Reason Start Date Expiration Date Visits Re quested Visits Authorized [id number] Closed 05/30/2020 1 1 Encounter Details Date Type Department Care Team (Latest Contact Info) Description 06/30/2020 4:00 EDT - 06/30/2020 23:59 EDT Hospital Encounter [facility] Remote Device [address] [place] [address] Atrial fibrillation (HCC-CMS) Discharge Disposition: Home or [...] CARDIAC IMPLANT CHECK - REMOTE MONITOR Routine 06/30/2020 11:14 EDT Atrial fibrillation (HCC-CMS) documented in this encounter Results * CARDIAC IMPLANT CHECK - REMOTE - LOOP RECORDER (ILR) (06/30/2020 11:14 EDT) Anatomical Region Laterality Modality Device Narrative 07/11/2020 12:38 EDT I have reviewed the implantable loop recorder interrogation. ??I agree with the findings. SCHEDULED ILR REMOTE TRANSMISSION. 0 EPISODES RECORDED SINCE LAST INTERROGATION. BATTERY STATUS OK. NEXT CHECK IN 1 MO. DC Maris Mead NP CV IMPLANTABLE CARDI AC DEVICE documented in this encounter Visit Diagnoses Diagnosis Atrial fibrillation ([facility]) Atrial fibrillation documented in this encounter Care Teams Rod Puller Relationship Specialty Start Date End Date Purvi Amador NP [address] [place] [address] PCP - General 08/18/14 documented as of this encounter
--- OUTSIDE RECORDS SUMMARY | 2023-08-27 18:15 | XMS_ITS | Encounter Summary ---
Author Organization [facility] Address [address] [place] [address] Care Team Providers Care Laborer Demolition Name Role Phone Purvi Amador NP Primary Care Provider [phone] Reason for Referral * (Routine) - Closed Specialty Diagnoses / Procedures Referred By Contac t Referred To Contact Diagnoses Atrial fibrillation ([facility]-CMS) Procedures CARDIAC IMPLANT CHECK - REMOTE MONITOR Maris Mead NP [address] [employer] [address] [address] Referral ID Status Reason Start Date Expiration Date Visits Re quested Visits Authorized [id number] Closed 09/14/2019 1 1 Reason for Visit * (Routine) - Closed Specialty Diagnoses / Procedures Referred By Contac t Referred To Contact Diagnoses Atrial fibrillation (HCC-CMS) Procedures CARDIAC IMPLANT CHECK - REMOTE MONITOR Maris Mead NP [address] [employer] [address] [address] Referral ID Status Reason Start Date Expiration Date Visits Re quested Visits Authorized [id number] Closed 09/14/2019 1 1 Encounter Details Date Type Department Care Team (Latest Contact Info) Description 10/20/2019 4:00 EDT - 10/20/2019 23:59 EDT Hospital Encounter [facility] Remote Device [address] [place] [address] Atrial fibrillation (HCC-CMS) Discharge Disposition: Home or [...] CARDIAC IMPLANT CHECK - REMOTE MONITOR Routine 10/20/2019 9:37 EDT Atrial fibrillation (HCC-CMS) documented in this encounter Results * CARDIAC IMPLANT CHECK - REMOTE - LOOP RECORDER (ILR) (10/20/2019 9:37 EDT) Anatomical Region Laterality Modality Device Narrative 10/22/2019 14:59 EDT I have reviewed the implantable loop recorder interrogation. ??I agree with the findings. SCHEDULED ILR REMOTE TRANSMISSION. 0 EPISODES RECORDED SINCE LAST INTERROGATION. BATTERY STATUS OK. NEXT CHECK IN 1 MO. DC Maris eMad NP CV IMPLANTABLE CARDI AC DEVICE documented in this encounter Visit Diagnoses Diagnosis Atrial fibrillation (HCC-CMS) Atrial fibrillation documented in this encounter Care Teams Laborer Demolition Relationship Specialty Start Date End Date Purvi Amador NP [address] [place] [address] PCP - General 08/18/14 documented as of this encounter
--- OUTSIDE RECORDS SUMMARY | 2023-08-27 18:15 | XMS_ITS | Encounter Summary ---
Author Organization [facility] Address [address] [place] [address] Care Team Providers Care Time Motion Analyst Name Role Phone Purvi Amador BENEFITS ADMINISTRATOR Primary Care Provider Reason for Visit * Reason Onset Date Comments Coordination Of Care 02/19/2020 Encounter Details Date Type Department Care Team (Late st Contact Info) Description 02/19/2020 Telephone [facility] Cardiology - [address] [place], [place] [id number] Mello Barahona, RN Coordination Of Care Social [...] Telephone Encounter - Mello Barahona, RN - 02/19/2020 1444 EST Outside medication reconciliation. documented in this encounter Plan of Treatment Not on file documented as of this encounter Visit Diagnoses Not on filedocumented in this encounter Historical Medications * This list may reflect changes made after this encounter. Medication Sig Dispensed Refills Start Date End Date ELIQUIS 5 mg tablet Take 1 Tablet by mouth 2 times daily. 01/20/2020 added in this encounter Care Teams Time Motion Analyst Relationship Specialty Start Date End Date Purvi Amador, LEANDRO [address] [place] [address] PCP - General 08/18/14 documented as of this encounter
--- OUTSIDE RECORDS SUMMARY | 2023-08-27 18:15 | XMS_ITS | Encounter Summary ---
Author Organization [facility] Address [address] [place] [address] Care Team Providers Care Survey Director Name Role Phone Purvi Amador SENIOR LOAN OFFICER Primary Care Provider [phone] Reason for Visit * Reason Comments Atrial Fibrillation Encounter Details Date Type Department Care Team (Late st Contact Info) Description 01/30/2022 11:30 EST Office Visit [facility] Cardiology - [address] [place] [address] Lion Mitchell MD [address] [place], [place] [address]ey [facility] [address] [place] [address] Paroxysmal atrial fibrillation (HCC-CMS) (Primary [...] EST Pulse 60 01/30/2022 1128 EST Temperature - - Respiratory Rate - - Oxygen Saturation 98% 01/30/2022 1128 EST Inhaled Oxygen Concentration - - Weight 70.8 kg (156 lb) 01/30/2022 1128 EST Height - - Body Mass Index [...] * Patient Instructions* Lion Mitchell MD - 01/30/2022 11:30 EST You are doing well without evidence of recurrent atrial fibrillation. On the other hand, you are athigh risk for stroke related to atrial fibrillation so the anticoagulation needs to be continued indefinitely. Please continue to follow with Julian Post your blood pressure and other medical issues. I remain at your service at any time but no specific follow-up needs to be arranged. documented in this encounter Progress Notes * Lion Mitchell MD - 01/30/2022 1130 EST Subjective: Patient ID: Michael Valdez is an 76 y.o. man who returns for scheduled follow- up of paroxysmal atrial fibrillation that was discovered on implantable loop recorder following TIA.. Chief Complaint Patient presents with ??? Atrial Fibrillation HPI The history summarized in my previous notes. I last saw him on January 24, 2021. 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 Aspirin was discontinued and apixaban was recommended. He has never experienced palpitations. With a BBC1LD3-ANRg score of 5, anticoagulation needs to be continued indefinitely and he understands this. The implantable loop recorder is no longer being followed, with no significant battery life I am sure, but is not troubling to him and remains in place. Today he reports no complaints. He works out 4 days a week and is very active. He looks forward to ski season. Patient Active Problem List Diagnosis ??? Vertigo [...] History Tobacco Use ??? Smoking status: Former Packs/day: 1.00 Years: 19.00 Pack years: 19.00 Types: Cigarettes ??? Smokeless tobacco: Never Vaping Use ??? Vaping Use: Never used Substance Use Topics ??? Alcohol use: No ??? Drug use: No Current Outpatient Medications on File Prior to Visit Medication Sig Dispense Refill ??? betamethasone dipropionate 0.05 % lotion Apply topically 2 times daily ??? cetirizine (ZYRTEC) 10 mg tablet Take 10 mg by mouth daily. (Patient not taking: No sig reported) ??? ELIQUIS 5 mg tablet Take 5 mg by mouth 2 times daily. ??? lisinopril (PRINIVIL, ZESTRIL) 2.5 mg tablet Take 2.5 mg by mouth daily. ??? metroNIDAZOLE (METROGEL) 1 % gel Apply topically daily. Use a thin layer to affected areas after washing ??? NONFORMULARY Take by mouth daily green Vibrance - supplements ??? TAMSulosin (FLOMAX) 0.4 mg capsule Take 0.4 mg by mouth daily ??? venlafaxine (EFFEXOR-XR) 150 mg XR capsule Take 150 mg by mouth daily No current facility-administered medications on file prior to visit. Allergies Allergen Reactions ??? Ambien [Zolpidem] Other (See Comments) Hallucinations ??? Penicillins ROS - See HPI Objective: BP (!) 148/88 (BP Cuff Location: Right arm, BP Patient Position: Sitting, BP Cuff Sizes: Adult, regular) Pulse 60 Wt 70.8 kg (156 lb) SpO2 98% BMI 22.38 kg/m?? Physical Exam He is in no distress. The loop recorder is palpable under his left anterior chest, nontender. The lungs are clear to percussion and auscultation. Cardiovascular examination reveals regular S1 and S2 without rub, gallop or murmur. Accessory clinical data: The EKG today shows sinus bradycardia at 59 bpm. It is otherwise normal. Assessment: This patient had a TIA that was discovered to likely be related to asymptomatic paroxysmal atrial fibrillation (a 20-minute episode was documented). He has hypertension and is followed by Purvi Giles NP. I do not need to continue to follow him but remain at his service at any time. He understands the importance of continuing anticoagulation. Plan: As above. (I48.0) Paroxysmal atrial fibrillation (HCC-CMS) (HCC) (primary encounter diagnosis) Plan: EKG 12-LEAD Lion Mitchell MD No orders of the defined types were placed in this encounter. documented in this encounter Plan of Treatment Not on file documented as of this encounter Procedures Procedure Name Priority Date/Time Associated Diagnosis Comments ECG REPORT - SCANNED 01/31/2022 12:23 EST EKG 12-LEAD Routine 01/30/2022 11:53 EST Paroxysmal atrial fibrillation (HCC-CMS) documented in this encounter Results * ECG REPORT - SCANNED (01/31/2022 12:23 EST) 01/31/2022 12:2 3 EST Scan 2 Ammunition And Explosives Handler PROCEDURE/MINOR DANIELLA GICAL ORDERABLES * EKG 12-LEAD (01/30/2022 11:53 EST) 01/30/2022 11:5 3 EST Narrative [facility] EKG - 01/31/2022 12:18 EST ? [facility] ? Test Date: ?2022-01-30 Pat Name: ? MICHAEL GURDEEP ? Department: ?? [facility] Card ? Room: ? Gender: ? Male ? Calender Tender: ?? [id number] : ?1945 ? Requested By: DEBRA LOO L Order Number: [id number] ? Reading MD: ?? BRII LIMA MD ? Measurements Intervals ?[place] ? Rate: ? 58 ? P: ?75 SD: ? 146 ?QRS: ?61 QRSD: ? 98 ? T: ?68 QT: ? 407 ? QTc: ?402 ? Interpretive Statements SINUS BRADYCARDIA Compared to ECG 01/24/2021 08:45:36 Sinus rhythm no longer present I reviewed the tracing and have either agreed or edited the findings in this report. Electronically Signed On 01-31-2022 12:18:46 EST by BRII LIMA MD. Procedure Note Brii Lima MD - 01/31/[address] [facility] Test Date: 2022-01-30 Pat Name: MICHAEL VALDEZ Department: [facility] Room: Gender: Male Calender Tender: [id number] : 1945 Requested By: DEBRA Johansen Order Number: [id number] Reading MD: BRII LIMA MD Measurements Intervals [place] Rate: 58 P: 75 SD: 146 QRS: 61 QRSD: 98 T: 68 QT: 407 QTc: 402 Interpretive Statements SINUS BRADYCARDIA Compared to ECG 01/24/2021 08:45:36 Sinus rhythm no longer present I reviewed the tracing and have either agreed or edited the findings inthis report. Electronically Signed On 01-31-2022 12:18:46 EST by BRII BAKER. Lion Mitchell MD CARDIAC ECG ORDERABL ES [facility] EKG documented in this encounter Visit Diagnoses Diagnosis Paroxysmal atrial fibrillation (HCC-CMS)- Primary Atrial fibrillation documented in this encounter Care Teams Survey Director Relationship Specialty Start Date End Date Purvi Amador, LEANDRO [address] [place] [address] PCP - General 08/18/14 documented as of this encounter
--- OUTSIDE RECORDS SUMMARY | 2023-08-27 18:15 | XMS_ITS | Encounter Summary ---
Author Organization [facility] Address [address] [place] [address] Care Team Providers Care General Maintenance Technician Name Role Phone Purvi Amador PASTRY SOUS CHEF Primary Care Provider [phone] Encounter Details Date Type Department Care Team (Late st Contact Info) Description 09/10/2022 Lab Requisition [facility] Pathology & Laboratory Medicine - [address] [address] Outr Resulting Lab, Provider Social History Tobacco [...] Associated Diagnosis Comments PSA TOTAL, DIAGNOSTIC Routine 09/10/2022 9:00 EDT documented in this encounter Results * PSA TOTAL, DIAGNOSTIC (09/10/2022 9:00 EDT) PSA 1.9 <=6.5 ng/mL 09/11/2022 9:15 EDT [facility] Blood VENOUS BLOOD / Unknown 09/10/2022 9:00 EDT 09/10/2022 21:24 EDT Narrative [facility] - 09/11/2022 9:15 EDT NOTE: Serum PSA concentration should not be interpreted as absolute evidence for the presence or absence of malignant disease. Assayed on [employer] XPT using chemiluminescent technology.??Values obtained by using different assay methods cannot be used interchangeably. Provider Outr Resulting Lab CHEMISTRY & BLOOD GAS ORDERABLES [facility] [address] [place] [address] documented in this encounter Visit Diagnoses Not on filedocumented in this encounter Care Teams General Maintenance Technician Relationship Specialty Start Date End Date Purvi Amador NP [address] [place] [address] PCP - General 08/18/14 documented as of this encounter
--- OUTSIDE RECORDS SUMMARY | 2023-08-27 18:15 | XMS_ITS | Encounter Summary ---
Author Organization [facility] Address [address] [place] [address] Care Team Providers Care Ship Unloader Name Role Phone Purvi Amador NP Primary Care Provider [phone] Reason for Referral * (Routine) - Closed Specialty Diagnoses / Procedures Referred By Contac t Referred To Contact Diagnoses Atrial fibrillation ([facility]-CMS) Procedures CARDIAC IMPLANT CHECK - REMOTE MONITOR Maris Mead NP [address] [employer] [address] [address] Referral ID Status Reason Start Date Expiration Date Visits Re quested Visits Authorized [id number] Closed 10/20/2019 1 1 Reason for Visit * (Routine) - Closed Specialty Diagnoses / Procedures Referred By Contac t Referred To Contact Diagnoses Atrial fibrillation (HCC-CMS) Procedures CARDIAC IMPLANT CHECK - REMOTE MONITOR Maris Mead NP [address] [employer] [address] [address] Referral ID Status Reason Start Date Expiration Date Visits Re quested Visits Authorized [id number] Closed 10/20/2019 1 1 Encounter Details Date Type Department Care Team (Latest Contact Info) Description 11/20/2019 1:45 EDT - 11/20/2019 23:59 EDT Hospital Encounter [facility] Remote Device [address] [place] [address] Atrial fibrillation (HCC-CMS) Discharge Disposition: Home or [...] CARDIAC IMPLANT CHECK - REMOTE MONITOR Routine 11/20/2019 10:25 EDT Atrial fibrillation (HCC-CMS) documented in this encounter Results * CARDIAC IMPLANT CHECK - REMOTE - LOOP RECORDER (ILR) (11/20/2019 10:25 EDT) Anatomical Region Laterality Modality Device Narrative 11/27/2019 11:34 EDT I have reviewed the implantable loop recorder interrogation. ??I agree with the findings. ?? SCHEDULED ILR REMOTE TRANSMISSION. 0 EPISODES RECORDED SINCE LAST INTERROGATION. BATTERY STATUS OK. NEXT CHECK IN 1 MO. DC Maris Mead NP CV IMPLANTABLE CARDI AC DEVICE documented in this encounter Visit Diagnoses Diagnosis Atrial fibrillation (HCC-CMS) Atrial fibrillation documented in this encounter Care Teams Ship Unloader Relationship Specialty Start Date End Date Purvi Amador NP [address] [place] [address] PCP - General 08/18/14 documented as of this encounter
--- OUTSIDE RECORDS SUMMARY | 2023-08-27 18:16 | XMS_ITS | Encounter Summary ---
Author Organization [facility] Address [address] [place] [address] Care Team Providers Care School Transportation Director Name Role Phone Purvi Amador BRIDGE BUILDER Primary Care Provider [phone] Encounter Details Date Type Department Care Team (Late st Contact Info) Description 09/18/2017 Results Only [facility] [phone] Miriam Davis PA-C [address] [place], [place] [id number] Social History Tobacco Use Types Packs/Day Years Used Date Smoking Tobacco: Former Cigarettes 1 19 Alcohol Use Standard Drinks/Week Comments No 0 [...] Priority Date/Time Associated Diagnosis Comments SURGICAL PATHOLOGY Routine 09/18/2017 11 :53 EDT documented in this encounter Results * SURGICAL PATHOLOGY (09/18/2017 11:53 EDT) Pathology Report: SURGICAL PATHOLOGY REPORT Reports generated via electronic interface contain original data; however they are lacking the format of the original report. Caution should be taken when reading/interpret ing unformatted reports. Name: ? MICHAEL MACKENZIE ? Accession #: ? [id number] ? : ? 1945 (Age: 71) ??M ? Collect Date: ? 09/18/2017 ? Location: ? [facility] ? Receive Date: ? 09/18/2017 ? Provider: MIRIAM DAVIS PA-C Copy to: ? Final Pathologic Diagnosis: SKIN OF FACE, LEFT SUPERIOR PREAURICULAR CHEEK, SHAVE BIOPSY: - Inverted follicular keratosis. Document reviewed and electronically signed by: CRISTHIAN AGUILA MD Report ??Date: 09/19/2017 13:47 By the signature above, the attending physician certifies that he/she has personally conducted a gross and/or microscopic examination of the described specimens and rendered or confirmed the above diagnosis. Specimen(s) Received: Left superior preauricular cheek shave biopsy Clinical History: Pearly papule; DDx: basal cell carcinoma vs squamous cell carcinoma; anticipated plan: Mohs, ideally no consult since pt has had Mohs in [place]; clinical diagnosis code: ??D48.5 Gross Description: ? Received in formalin labelled with proper patient identification (initials S, W) and left superior preauricular is a shave biopsy of a avelar-white ovoid papule (0.5 x 0.3 x 0.1 cm). The margin is inked blue. The specimen is submitted intact in 1. Yolanda Valverde 09/18/2017 12:43 PM End of Report [facility] 09/18/2017 11:5 3 EDT 09/18/2017 11:53 EDT Miriam Davis PA-C PATHOLOGY ORD ERABLES [facility] [address] [place] [address] documented in this encounter Visit Diagnoses Not on filedocumented in this encounter Care Teams School Transportation Director Relationship Specialty Start Date End Date Purvi Amador, BRIDGE BUILDER [address] [place] [address] PCP - General 08/18/14 documented as of this encounter
--- OUTSIDE RECORDS SUMMARY | 2023-08-27 18:16 | XMS_ITS | Encounter Summary ---
Author Organization [facility] [place] Address [address] [place] [address] Care Team Providers Care Poultry Tender Name Role Phone Purvi Amador REED FIXER Primary Care Provider [phone] Reason for Visit * Reason Comments Squamous Cell Carcinoma left orthodoxy Encounter Details Date Type Department Care Team (Late st Contact Info) Description 06/17/2018 8:30 EDT Office Visit [facility] Dermatology 5th Floor [facility] [address], [place] [id number] Joni Mcdonald MD [address] [facility], Level [address] [place] [address] Squamous cell cancer of skin of left orthodoxy (Primary Dx) Discharge Disposition: Auto Discharge Social History Tobacco Use Types Packs/Day Years [...] Sign Reading Time Taken Comments Blood Pressure 149/84 06/17/2018 0841 EDT Pulse 65 06/17/2018 0841 EDT Temperature 34.8 ??C (94.6 ??F) 06/17/2018 0841 EDT Respiratory Rate - - Oxygen Saturation - - Inhaled Oxygen Concentration - - Weight - - Height - - Body Mass Index - - documented in this encounter Discharge Diagnoses Diagnosis C44.329 Squamous cell carcinoma of skin of other parts of face-C44.329[ICD-10-CM] documented in this encounter Patient Instructions * Patient Instructions* Yuli Zamora - 06/17/2018 8:30 EDT WOUND CARE INSTRUCTIONS FOR SKIN SURGERY The BANDAGE should remain in place for 24 hours. You may shower or bathe after 24 hours; remove thebandage and replace it after the shower (see wound care section below for instructions on how to dothis). DISCOMFORT: Expect some discomfort. Tylenol, taken as directed by the manager policy, will help relieve pain. If Tylenol does not provide sufficient relief, you may also take Ibuprofen alternating every four hours with the Tylenol. If the pain is severe and not relieved by the above measures, please c all the office. BLEEDING: You may notice some blood on the edges of the dressing the first day - this is NORMAL. Ifthe bleeding soaks through the dressing, remove the dressing, and apply firm, steady pressure with a moist clean wash cloth for fifteen minutes. If the bleeding stops, redress the wound, if not, callour office at . ACTIVITY: Relax and limit your physical activity for the first 48 hours after surgery. Also, if thesurgery was on the face or scalp, keep your head elevated. Your provider may ask you to limit activity for a longer period of time. APPEARANCE: There may be swelling and bruising around the wound, especially near the eyes. Some redness is normal, but the wound should not be red, hot and tender. If the wound becomes increasingly inflamed, warm, or drains pus, please call our office. WOUND CARE: ?? Wash hands with soap and water before changing the dressing. ?? Change the dressing daily and when it becomes wet. ?? Clean the wound with mild soap and warm water. ?? You may gently loosen any crusts with a cotton swab. ?? The wound may be slightly tender and may bleed a small amount. A small amount of discharge is normal. ?? Apply a thin layer of sterile petroleum jelly over the wound. ?? Cover with Telfa or similar non-stick dressing or bandage. ?? Tape in place with Hypafix or paper tape. ?? It is important to keep the wound covered for 7 days at which point the dressing may be removed and does not need to be reapplied. ?? If there are areas that are not fully healed after 7 days then the dressing should remain in place longer until the skin has healed completely. ?? If your sutures require removal, you will receive specific instructions regarding when and whereto have them removed. Dissolvable sutures generally fall out in 7 to 14 days. If there are suture remnants still present after 7 days you may pull them out with tweezers. CONTACT OUR OFFICE ( or ) IF YOU EXPERIENCE: ?? Increasing redness ?? Wound is warm or hot to touch ?? Increasing pain ?? Drainage with a foul odor ?? Rapid swelling of the wound ?? Fever or chills documented in this encounter Discharge Disposition Disposition Code Departure Means Destination Auto Discharge documented in this encounter Progress Notes * Sherrill Avila - 06/17/2018 0830 EDT Images from the original note were not included. MOHS SURGERY POST-OP SUMMARY Michael Valdez is a 72 y.o. year old male who underwent Mohs surgery today 06/17/2018. The following is a summary of the operative findings: Lesion 1 Invasive squamous cell carcinoma Location left lateral orthodoxy Size Preop (cm) 1.4 cm x 0.9 cm Size Postop (cm) 1.8 cm x 1.4 cm Stages 1 Depth of Excision subcutis Repair intermediate linear repair Mr. Valdez was discharged from the operative suite in good condition. He was carefully instructed in postoperative wound care both verbally and in writing. All sutures used were absorbable, so the patient does not need to return for suture removal. The patient will follow up with Yue Davis PA-C and will return to see me as needed. Note: None Joni Mcdonald MD 06/17/2018 17:22 MOHS EVALUATION NOTE Chief Complaint Patient presents with ??? Squamous Cell Carcinoma left orthodoxy Subjective: Michael Valdez is a 72 y.o. 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 The patient isreferred to consider Mohs surgery versus other treatment options. The patient notes that this lesion has been present for about 18 months, and reports pain, non-healing and slow growth. He states that it was initially biopsied in 2018 but at that time it showed a benign lesion, but the area continued to be bothersome. He has had prior Mohs surgery in [place]. The patient???s risk factors for skin cancer include history of basal cell carcinoma, history of melanoma, avid outdoor lifestyle and blue eyes and fair skin. Risk factors: Pacemaker/ICD: none Anticoagulants: none Total joint replacements/valves: none Allergies: Patient is allergic to ambien [zolpidem] and penicillins. Immunosuppression: none Smoking status: non-smoker For full Medical, Surgical, Family, and Social histories as well as Review of Systems, Medications and Allergies please see those sections of this encounter in the electronic chart which I have personally reviewed. Objective: The patient is a alert and not in distress appearing 72 y.o.-year-old male sitting on theexamination table. Examination revealed a 1.4 cm x 0.9 cm gritty and pink, plaque located on the left lateral orthodoxy. Examination of the lymph nodes was not performed today. Pathology: SKIN OF ROMAN CATHOLIC, LEFT LATERAL, SHAVE BIOPSY: - Squamous cell carcinoma, well differentiated, invasive. ??- Squamous cell carcinoma present at deep tissue edges. 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 Mr. Valdez and I discussed the meaning of the diagnosis of skin cancer and the options for treatment including curettage and electrodesiccation, radiation therapy, conventional excision, and excision by Mohs micrographic surgery. Due to the need for a high cure rate and optimum functional and aesthetic outcome, I feel that Mohs surgery is indicated. The risks of Mohs surgery and potential reconstructive surgery, including but not limited to, bleeding, scarring, infection, recurrence, injury to functionally or cosmetically important nerve structures and an unsatisfactory cosmetic result were reviewed. The patient was given an opportunity to ask questions, and I believe that all of his questions were answered satisfactorily. Mr. Valdez understands that following Mohs surgery an operativerepair may be required and may involve substantial suturing. We have jointly planned to have me repair the wound at the day of surgery if needed. He understands that following reconstruction, if performed, many months may elapse before a decision can be made about the final cosmetic result, and that, in some cases a revision may be necessary to optimize the outcome. I explained to Mr. Valdez thatin addition to the risk of recurrence from his skin cancer he has an increased risk of developing additional new skin cancers elsewhere. For that reason, follow up for ongoing skin surveillance examin ations, after surgery, will be imperative. The patient has been scheduled to undergo surgery today. Note: None Sherrill Avila MD 06/17/2018 8:58 Attestation statement: I saw and examined the patient with the resident / fellow. I agree with the findings and plan of care documented in the resident's / fellow's note. Joni Mcdonald MD 06/17/2018 17:23 MOHS OPERATIVE REPORT Patient Name: Michael Valdez Date of Service: June 17, 2018 Surgeon: Joni Mcdonald MD Utilities Manager: Raysa Guillen PA-C and Sherrill Avila MD Case #: [id number] Mohs AUC Score: 8 (APPROPRIATE) Preoperative Diagnosis: Invasive squamous cell carcinoma Preoperative Procedure: Mohs micrographic surgery Location of Lesion: left lateral orthodoxy Preoperative Lesion Size: 1.4 cm x 0.9 cm Preoperative Procedure: Mohs microscopically-controlled fresh tissue excision Indications: The patient presents with a invasive squamous cell carcinoma. Because of the histologic and clinical nature of the lesion, as well as its location, the need to achieve the highest cure rate while providing maximum tissue preservation warranted tumor extirpation via microscopically-controlled excision using the Mohs fresh tissue technique. Alternate therapeutic options were discussed on several occasions prior to surgery. After informed consent was obtained and appropriate instruction was provided, the patient underwent tumor extirpation by the Mohs fresh tissue technique as follows: PROCEDURE - INITIAL STAGE: Patient position: supine Anesthesia: 1% lidocaine with epinephrine 1:100,000 local infiltration Prep: Povodine Iodine The patient was brought to the operative suite. The lesion was identified and was prepped in a sterile fashion. The area was infiltrated with lidocaine/epinephrine to achieve complete anesthesia and to augment hemostasis. An initial beveled excision was performed to the subcutis with a scalpel blade and tissue scissors as indicated. A hash was created in the specimen and within the adjacent epidermis for marking purposes. The Mohs specimen was excised in a sharp manner, and carefully placed in proper orientation on the surgical tray. Hemostasis of the operative wound was obtained with carefulspot electrocoagulation. A sterile non-adherent dressing was applied to the operative wound. The Mohs tissue specimen was carefully transferred to the lab where the tissue was divided, and color inked for orientation by me. These specimens were mapped and then handed personally to the electroencephalographic technician for frozen sectioning. The tissue was embedded so that the deep and surface margins lay in the same plane, and sections were made through this plane. Once the slide preparation was complete I personally performed histologic evaluation and interpretation of all sections. A summary of my findingsmay be found below. Stage 1 findings: Wound Depth subcutis Sections Created 2 Number of Sections Containing Tumor 0 (NEGATIVE) ADDITIONAL STAGES: None With the patient clear of microscopic tumor, surgery was considered complete. The wound was repaired with an INTERMEDIATE LINEAR closure as detailed in the separate linear repair procedure note below. Postoperative Wound Size: 1.8 cm x 1.4 cm Final Diagnosis: Invasive squamous cell carcinoma Final Procedure: Mohs micrographic surgery Blood Loss: Minimal Operative Time: 45 minutes Complications: None Note: None I was present during all velasco and critical portions of this procedure and remained immediately available throughout. I performed the velasco elements of the procedure. Joni Mcdonald MD 06/17/2018 17:23 INTERMEDIATE REPAIR PATIENT INFORMATION: Michael Valdez SURGEON: Joni Mcdonald MD FLEET SERVICE MANAGER: Raysa Guillen PA-C PREOPERATIVE DIAGNOSIS: Defect following microscopically controlled excision of well differentiatedinvasive squamous cell carcinoma PREOPERATIVE PROCEDURE: Intermediate Linear Closure LOCATION of WOUND: left orthodoxy/preauricular cheek WOUND DIMENSIONS: 1.8 cm x 1.4 cm INDICATIONS: The patient presents with an operative wound following tumor removal. After careful consideration and discussion of all repair options, it was determined that, given the location and nature of the defect, an intermediate linear layered closure offered the best chance for preservation of normal anatomic and functional relationships. Alternate options were discussed and the patient was encouraged to ask questions, which, I believe, were answered appropriately. Informed consent was obtained in writing. After informed consent was obtained and appropriate instruction was provided, the patient underwent operative repair as follows. PROCEDURE: Patient position: supine Anesthesia: 1% lidocaine with epinephrine 1:100,000 local infiltration Prep: Povodine Iodine The Mohs operative defect was identified, and the area was infiltrated with lidocaine/epinephrine to achieve complete anesthesia and to augment hemostasis. The area was prepped in the usual sterile and was draped with sterile drapes. A linear closure was designed with care to place the operative repair within functional and cosmetic lines to minimize the postoperative distortion of normal tissues. The wound edges were prepared using a # 15 scalpel blade to precisely delineate the operative repair and were then undermined with combined blunt and, as needed, sharp dissection taking great care to avoid functionally important vessels and nerves. Undermining was carried out at the level of the subcutaneous fat Hemostasis of the operative wound was obtained with careful spot electrocoagulation,and ligature as indicated. The wound edges were then approximated using 5.0 Monocryl (poliglecaprone 25) buried interrupted sutures at the level of the subcutis and dermis. The epidermis was then approximated using 6.0 Fast absorbing plain gut. The final wound length was 5.0 cm. FINAL DIAGNOSIS: Defect following microscopically controlled excision FINAL PROCEDURE: Intermediate linear closure BLOOD LOSS: minimal OPERATIVE TIME: 30 minutes COMPLICATIONS: None NOTE: None DINESH Nowak I was present during all velasco and critical portions of this procedure and remained immediately available throughout. I performed the velasco elements of the procedure. Joni Mcdonald MD 06/17/2018 17:23 * Yuli Zamora - 06/17/2018 0830 EDT Patient Education Topic: wound care Method: Handout and Verbal Taught to: Patient Barriers: None Outcomes: independent Signature: Yuli Zamora Water Quality Control Engineer, Dermatology 8:42 06/17/2018 documented in this encounter Plan of Treatment Not on file documented as of this encounter Procedures Procedure Name Priority Date/Time Associated Diagnosis Comments PROCEDURE REPORTS - SCANNED 06/24/2018 7:03 EDT documented in this encounter Results * PROCEDURE REPORTS - SCANNED (06/24/2018 7:03 EDT) 06/24/2018 7:03 EDT Scan 2 Playground Monitor PROCEDURE/MINOR DANIELLA GICAL ORDERABLES documented in this encounter Visit Diagnoses Diagnosis Squamous cell cancer of skin of left orthodoxy- Primary Squamous cell carcinoma of skin of other and unspecified parts of face documented in this encounter Care Teams Poultry Tender Relationship Specialty Start Date End Date Purvi Amador, REED FIXER [address] [place] [address] PCP - General 08/18/14 documented as of this encounter
--- OUTSIDE RECORDS SUMMARY | 2023-08-27 18:16 | XMS_ITS ---
Author Organization Unknown Address [address] [place] [phone] Phone Care Team Providers Care Fusing Line Inspector Name Role Phone MIRIAM Cr SHERIDAN Registered Nurse Unavailab august Joseph Attending Unavailable MIRI Hankins Primary Unavailable UNLISTED PROVIDER - REQUESTED Xhandoff Un available Immunization Immunization Date Status Additional Notes Code Code System Tdap 07/27/2021 Completed 115 CVX Results LIPASE* - Collect Date/Time: 10/08/2021 00:21 [facility] ID: [id number] [address] [place] [address], [id number] LOINC: 3040-3 Test Value Unit Reference Range Code Code System Flag LIPASE 90 U/L L=73 H=393 TROPONIN HIGH SENSITIVITY* - Collect Date/Time: 10/08/2021 00:21 [facility] ID: [id number] [address] [place] [address], [address] LOINC: 50102-5 Test Value Unit Reference Range Code Code System Flag TROPONIN HS 6.0 pg/mL L=0.0 H=60.4 Specimen seq. Random COMPREHENSIVE METABOLIC PANE L (CMP) - Collect Date/Time: 10/08/2021 00:21 [facility] ID: [id number] [address] [place] [address], [address] LOINC: 92928-2 Test Value Unit Reference Range Code Code System Flag GLUCOSE 126 mg/dL L=70 H=116 2345-7 LOINC H BUN 11 mg/dL L=6 H=25 3094-0 LOINC CREATININE 1.09 mg/dL L=0.67 H=1.17 2160-0 LOINC SODIUM SERUM 133 mmol/L L=136 H=145 2951-2 LOINC L POTASSIUM SERUM 4.1 mmol/L L=3.4 H=5.2 2823-3 LOINC CHLORIDE SERUM 94 mmol/L L=96 H=110 2075-0 LOINC L CARBON DIOXIDE (CO2) 32 mmol/L L=22 H=34 2028-9 LOINC ANION GAP 6.8 mmol/L 20422-3 LOINC CALCIUM SERUM 9.8 mg/dL L=8.2 H=10.2 44451-7 LOINC BILIRUBIN TOTAL 0.6 mg/dL L=0.0 H=1.3 1975-2 LOINC ALK. PHOS. 150 U/L L=46 H=116 6768-6 LOINC H SGOT (AST) 21 U/L L=15 H=37 1920-8 LOINC SGPT (ALT) 25 U/L L=12 H=78 1742-6 LOINC TOTAL PROTEIN 7.9 gm/dL L=6.0 H=8.0 2885-2 LOINC ALBUMIN 4.2 gm/dL L=3.4 H=5.0 1751-7 LOINC AGE 76 years eGFR (non-Afr.Amer.) 66 mL/min 00284-6 LOINC eGFR (Afr-Mexican) 79 mL/min 17002-8 LOINC CBC W/ DIFFERENTIAL* - Colle ct Date/Time: 10/08/2021 00:21 [facility] ID: [id number] [address] [place], [place], [address] LOINC: 10556-3 Test Value Unit Reference Range Code Code System Flag WBC 8.13 th/cmm L=5.00 H=10.00 6690-2 LOINC NEUT % 79.2 % L=40.0 H=80.0 LYMPH % 12.2 % L=10.0 H=50.0 MONO % 6.9 % L=2.0 H=12.0 64608-7 LOINC EOS % 1.0 % L=0.0 H=8.0 BASO % 0.5 % L=0.0 H=3.0 IG % 0.2 % L=0.0 H=1.1 2514-8 LOINC NRBC % 0.0 % L=0.0 H=0.0 54072-3 LOINC NEUT abs count 6.4 th/cmm L=1.6 H=8.4 751-8 LOINC LYMPH abs count 1.0 th/cmm L=1.5 H=4.0 731-0 LOINC L MONO abs count 0.6 th/cmm L=0.2 H=1.0 742-7 LOINC EOS abs count 0.1 th/cmm L=0.0 H=0.5 711-2 LOINC BASO abs count 0.0 th/cmm L=0.0 H=0.2 704-7 LOINC IG abs count 0.0 th/cmm L=0.0 H=0.1 45813-5 LOINC NRBC abs count 0.0 mil/cmm L=0.0 H=0.0 26017-8 LOINC RBC 4.92 mil/cmm L=4.30 H=6.20 789-8 LOINC HEMOGLOBIN 15.3 gm/dL L=13.0 H=17.0 718-7 LOINC HEMATOCRIT 45 % L=45 H=52 4544-3 LOINC MCV 92 fL L=82 H=92 787-2 LOINC MCH 31.1 pg L=27.0 H=31.0 785-6 LOINC H MCHC 34.0 % L=32.0 H=36.0 786-4 LOINC RDW-SD 42.9 fL L=39.0 H=49.0 788-0 LOINC PLATELET COUNT 403 th/cmm L=150 H=450 777-3 LOINC XR CHEST 2V PA AND LATERAL - Completed: 10/08/2021 00:35 LOINC: CHEST - 2 VIEWS:Heart size i s normal. Left anterior chest wall cardiac loop detector is noted. No infiltrates nor pleural effusions. No pulmonary edema. No pneumothorax. IMPRESSION:No acute pulmonary findings. Dictated by: SLIME FRAUSTO MD Transcribed by: CORTES 10/10/21/09:38 D Friday, October 08, 2021 1:31:34 PM [id number] Electronically Reviewed and Signed By: LALIT FRAUSTO MD 10/10/21 18:32 Copy for: 185 HEALTH INFORMATION MGMT DISCHARGED Social History Type Status Start Date End Date Code Code Syst em Smoking History Former smoker 4278066 SNOMED CT Sex Male Vital Signs Vital Sign Value Unit Larimer Value Larimer Unit Date/Time Recent/Initial? Code Code System Body Mass Index 21.90 kg/m2 10/08/2021 00:10 Initial 38699 -5 LOINC Systolic Blood Pressure 147 mm[Hg] 10/08/2021 01:50 Most Recent 8480- 6 LOINC Diastolic Blood Pressure 86 mm[Hg] 10/08/2021 01:50 Most Recent 8462- 4 LOINC Systolic Blood Pressure 158 mm[Hg] 10/08/2021 00:10 Initial 8480- 6 LOINC Diastolic Blood Pressure 99 mm[Hg] 10/08/2021 00:10 Initial 8462- 4 LOINC Body Surface Area 1.89 m2 10/08/2021 00:10 Initial 3140- 1 LOINC Height 180.340 0 cm 71.00 in 10/08/2021 00:10 Initial 8302- 2 INC O2 Saturation 96 % 2021 01:50 Most Recent 23713 -5 LOINC O2 Saturation 100 % 2021 00:10 Initial 28663 -5 LOINC Pulse 58.0 /min 10/08/2021 01:50 Most Recent 8867- 4 LOINC Pulse 71.0 /min 10/08/2021 00:10 Initial 8867- 4 LOINC Respiration 18 /min 10/09/19 01:50 Most Recent 9279- 1 LOINC Respiration 16 /min 10/09/19 00:10 Initial 9279- 1 LOINC Temperature 35.0 Meggan 95.0 F 10/09/19 00:10 Initial 8310- 5 LOINC Weight 71.21 kg 157.00 lbs 10/08/2021 00:10 Initial 91700 -7 [facility] Medications Medication Start Date End Date Route Frequency Dose Code Code System Medication Instructions Home Meds Aspirin 325MG Oral Tablet, Enteric Coated 10/15/2018 Unknown ORAL DAILY WITH FOOD 325 MILLIGRAMS 19830719 RxNorm TAKE 325 MILLIGRAMS ORAL DAILY WITH FOOD Effexor XR 75MG Oral Capsule, Extended Release 10/15/2018 Unknown ORAL DAILY 150 MILLIGRAMS 560989 RxNorm TAKE 150 MILLIGRAMS ORAL DAILY Flomax 0.4MG Oral Capsule 10/15/2018 Unknown ORAL BEDTIME 0.4 MILLIGRAMS 363468 RxNorm TAKE 0.4 MILLIGRAMS ORAL BEDTIME Lisinopril 10MG Oral Tablet 10/15/2018 Unknown ORAL DAILY 10 MILLIGRAMS 287222 RxNorm TAKE 10 MILLIGRAMS ORAL DAILY Keflex 500MG Oral Capsule 07/27/2021 2 ORAL FOUR TIMES A DAY 1 CAPSULE 060757 RxNorm TAKE 1 CAPSULE ORAL FOUR TIMES A DAY Assessment You had the following problems:CEREBRAL INFARCTIONHYPERLIPIDEMIAHYPERTENSIONLACERATION OF LEFT INDEX FINGERTETANUS VACCINATION Hospital Discharge Instructions Should you have any questions prior to discharge, please contact a member of your healthcare team. If you have left the hospital and have any questions, please contact your primary care physician. Reason For Referral No Data Found Procedures Procedure Name Date Status Code Code Syste m Tonsillectomy completed [id number] SNOMEDCT SHOULDER SURGERY PROCEDURE completed 287067599 SNOMEDCT Left ankle completed 66693213 SNOMEDCT Problems Problem Start Date Resolved Date Status Code Code System CEREBRAL INFARCTION active 910795457 SNOMED-CT HYPERLIPIDEMIA active 26883972 SNOME D-CT HYPERTENSION active 44264174 SNOMED- CT LACERATION OF LEFT INDEX FINGER active 24940898989427422 SNOMED-CT TETANUS VACCINATION active 095163019 SNOMED-CT TIA 10/08/2021 resolved 410235371 SNOMED-CT HTN 10/08/2021 resolved 11826085 SNOMED-CT BPH 10/08/2021 resolved 280614309 SNOMED-CT Allergies and Adverse Reactions Allergy Substance Reaction Severity Start Date Concern Status Code Code System PENICILLINS (CLASS) Rash (SNOMED-CT: 837294159) Active 81200 RxNorm AMBIEN Hallucinations (SNOMED-CT: 4648189) Active 232734 RxNorm WHEAT Moderate 10/12/2009 Active 393885409 SNOMED-CT Plan of Treatment No Data Found Encounters Encounter Diagnosis Start Date Code Code Sys tem Epigastric pain 10/08/2021 SNOMED-CT Personal Care Team Section Performer Name Performer Role Active Date Inactive Da te
--- OUTSIDE RECORDS SUMMARY | 2023-08-27 18:16 | XMS_ITS | Encounter Summary ---
Author Organization [facility] Address [address] [place] [address] Care Team Providers Care Student Assistance Counselor Name Role Phone Purvi Amador WIRE FENCE ERECTOR Primary Care Provider [phone] Encounter Details Date Type Department Care Team (Late st Contact Info) Description 09/22/2015 Results Only Imaging [facility] [phone] Unknown, Provider, Social History Tobacco Use Types Packs/Day Years Used Date Smoking Tobacco: Former Cigarettes 1 19 Alcohol Use Standard Drinks/Week Comments No 0 (1 standard drink = 0.6 oz pur e alcohol) Sex and Gender Information Value Date Recorded Sex Assigned at Not on file Gender Identity Male 08/12/2019 12:25 EDT Sexual Orientation Not on file documented as of this encounter Plan of Treatment Pending Results Name Type Priority Associated Diagnoses Date /Time OUTSIDE IMAGES - MR NEURO Imaging 09/22/2015 9:52 EDT OUTSIDE IMAGES - MR MSK Imaging 0 09/22/2015 9:52 EDT documented as of this encounter Visit Diagnoses Not on filedocumented in this encounter Care Teams Student Assistance Counselor Relationship Specialty Start Date End Date Purvi Amador, WIRE FENCE ERECTOR [address] [place] [address] PCP - General 08/18/14 documented as of this encounter
--- OUTSIDE RECORDS SUMMARY | 2023-08-27 18:16 | XMS_ITS ---
Author Organization Unknown Address [address] [place] [address] [phone] Phone Care Team Providers Care Firm Administrator Name Role Phone BERNARDO FERNANDEZ Registered Nurse Unavailable SARAH Delarosa Attending Unavailable MIRI Hankins Primary Unavailable UNLISTED PROVIDER - REQUESTED Xhandoff Un available Immunization Immunization Date Status Additional Notes Code Code System Tdap 07/27/2021 Completed 115 CVX Results XR FINGER(S) 3V LT* - Comple harika: 07/27/2021 13:27 LOINC: LEFT INDEX FINGER:Comparison is made with hand films dated August 31. There is a soft tissue injury near the nail bed. There is no visible foreign body. There are degenerative changes at the interphalangeal joints and 1st carpal/metacarpal joint. No fracture is visible. IMPRESSION:Soft tissue injury near the nail bed. Dictated by: CEO TITO MARROQUIN MD Transcribed by: CORTES 07/27/2113:53 D , July 27, 2021 1:25:07 PM [id number] Electronically Reviewed and Signed By: TITO MARROQUIN MD 07/27/21 15:13 Copy for: 185 HEALTH INFORMATION MGMT DISCHARGED Social History Type Status Start Date End Date Code Code Syst em Smoking History Former smoker 4560252 SNOMED CT Sex Male Vital Signs Vital Sign Value Unit Bartley Value Bartley Unit Date/Time Recent/Initial? Code Code System Body Mass Index 21.62 kg/m2 07/27/2021 13:14 Initial 36478 -5 LOINC Systolic Blood Pressure 157 mm[Hg] 07/27/2021 13:14 Initial 8480- 6 LOINC Diastolic Blood Pressure 87 mm[Hg] 07/27/2021 13:14 Initial 8462- 4 LOINC Body Surface Area 1.88 m2 07/27/2021 13:14 Initial 3140- 1 [facility] Height 180.340 0 cm 71.00 in 07/27/2021 13:14 Initial 8302- 2 [facility] O2 Saturation 100 % 2021 13:14 Initial 20812 -5 [facility] Pulse 72.0 /min 07/27/2021 13:14 Initial 8867- 4 [facility] Respiration 18 /min 07/28/19 13:14 Initial 9279- 1 [facility] Temperature 35.6 Meggan 96.1 F 07/28/19 13:14 Initial 8310- 5 [facility] Weight 70.31 kg 155.00 lbs 07/27/2021 13:14 Initial 91443 -7 [facility] Medications Medication Start Date End Date Route Frequency Dose Code Code System Medication Instructions Home Meds Aspirin 325MG Oral Tablet, Enteric Coated 10/15/2018 Unknown ORAL DAILY WITH FOOD 325 MILLIGRAMS 893167 RxNorm TAKE 325 MILLIGRAMS ORAL DAILY WITH FOOD Effexor XR 75MG Oral Capsule, Extended Release 10/15/2018 Unknown ORAL DAILY 150 MILLIGRAMS 935919 RxNorm TAKE 150 MILLIGRAMS ORAL DAILY Flomax 0.4MG Oral Capsule 10/15/2018 Unknown ORAL BEDTIME 0.4 MILLIGRAMS 906139 RxNorm TAKE 0.4 MILLIGRAMS ORAL BEDTIME Lisinopril 10MG Oral Tablet 10/15/2018 Unknown ORAL DAILY 10 MILLIGRAMS 327922 RxNorm TAKE 10 MILLIGRAMS ORAL DAILY Keflex 500MG Oral Capsule 07/27/2021 2 ORAL FOUR TIMES A DAY 1 CAPSULE 089707 RxNorm TAKE 1 CAPSULE ORAL FOUR TIMES A DAY Assessment You had the following problems:CEREBRAL INFARCTIONHYPERLIPIDEMIAHYPERTENSIONLACERATION OF LEFT INDEX FINGERTETANUS VACCINATION Hospital Discharge Instructions Should you have any questions prior to discharge, please contact a member of your healthcare team. If you have left the hospital and have any questions, please contact your primary care physician. Reason For Referral No Data Found Problems Problem Start Date Resolved Date Status Code Code System CEREBRAL INFARCTION active 512771594 SNOMED-CT HYPERLIPIDEMIA active 09937231 SNOME D-CT HYPERTENSION active 40575665 SNOMED- CT LACERATION OF LEFT INDEX FINGER active 58572871658493918 SNOMED-CT TETANUS VACCINATION active 434733141 SNOMED-CT TIA 10/08/2021 resolved 169568496 SNOMED-CT HTN 10/08/2021 resolved 44133291 SNOMED-CT BPH 10/08/2021 resolved 658964171 SNOMED-CT Allergies and Adverse Reactions Allergy Substance Reaction Severity Start Date Concern Status Code Code System PENICILLINS (CLASS) Rash (SNOMED-CT: 959112663) Active 67722 RxNorm AMBIEN Hallucinations (SNOMED-CT: 9889548) Active 449286 RxNorm WHEAT Moderate 10/12/2009 Active 057800210 SNOMED-CT Plan of Treatment OUTPATIENT PLAN: Discharge Medications Medication Dosage Route Frequency Prescribing MD Special Instructions Keflex 500MG Oral Capsule 1 CAPSULE ORAL FOUR TIMES A DAY SARAH Delarosa TAKE 1 CAPSULE ORAL FOUR TIMES A DAY Your prescription was electronically sent to [facility] in [place] Follow up: Please see your doctor in 7-10 days for suture removal. Other Instructions: Wound care as discussed Encounters Encounter Diagnosis Start Date Code Code Sys tem Laceration without foreign b cullen of left index finger without damage to nail, initial encounter 07/27/2021 SNOMED-CT Personal Care Team Section Performer Name Performer Role Active Date Inactive Da te
--- OUTSIDE RECORDS SUMMARY | 2023-08-27 18:16 | XMS_ITS | Encounter Summary ---
Author Organization [facility] Address [address] [place] [address] Care Team Providers Care Ehs Manager Name Role Phone Purvi Amador TEA AND SPICE SUPERVISOR Primary Care Provider [phone] Reason for Visit * Reason Onset Date Comments Appointment Related 09/13/2015 Encounter Details Date Type Department Care Team (Late st Contact Info) Description 09/13/[address] [facility] [address] [place], [place] [phone] Enrrique Mcdaniel MD [address] [place] [address] DINESH FRANCOIS [phone] Appointment Related Social History Tobacco Use Types Packs/Day Years Used Date Smoking Tobacco: Former Cigarettes 1 19 Alcohol Use Standard Drinks/Week Comments No 0 (1 standard drink = 0.6 oz pur e alcohol) Sex and Gender Information Value Date Recorded Sex Assigned at Not on file Gender Identity Male 08/12/2019 12:25 EDT Sexual Orientation Not on file documented as of this encounter Miscellaneous Notes * Telephone Encounter - Kathy Martines - 09/13/2015 0835 EDT Left message for patient with date and time of MRI @ [facility] and their phone number if he needs to reschedule. Pt is scheduled for September 19 @ , checking in at 10 for labs. documented in this encounter Plan of Treatment Not on file documented as of this encounter Visit Diagnoses Not on filedocumented in this encounter Care Teams Ehs Manager Relationship Specialty Start Date End Date Purvi Amador, TEA AND SPICE SUPERVISOR [address] [place] [address] PCP - General 08/18/14 documented as of this encounter
--- OUTSIDE RECORDS SUMMARY | 2023-08-27 18:16 | XMS_ITS | Encounter Summary ---
Author Organization [facility] Address [address] [place] [address] Care Team Providers Care Formation Fracturing Operator Name Role Phone Purvi Amador RESIDENTIAL GAS HEAT TECHNICIAN Primary Care Provider [phone] Reason for Visit * Reason Comments Other Pre-op testing Encounter Details Date Type Department Care Team (Late st Contact Info) Description 08/09/2019 10:00 EDT Nurse Only [facility] - [facility] Testing Department [address] [place] [address] Nurse, [facility] Mobile Testing Screening for viral disease (Primary Dx) Social History Tobacco Use Types [...] Sign Reading Time Taken Comments Blood Pressure - - Pulse 67 08/09/2019 1004 EDT Temperature - - Respiratory Rate - - Oxygen Saturation 97% 08/09/2019 1004 EDT Inhaled Oxygen Concentration - - Weight - - Height - - Body Mass Index - - documented in this encounter Progress Notes * Shelbi Lin - 08/09/2019 1000 EDT Pre-op clearance testing documented in this encounter Plan of Treatment Not on file documented as of this encounter Procedures Procedure Name Priority Date/Time Associated Diagnosis Comments COVID-19 TESTING Routine 08/09/2019 10:0 5 EDT Screening for viral disease documented in this encounter Results * COVID-19 TESTING (08/09/2019 10:05 EDT) Performing Lab AB [address] [facility] L[facility] 08/11/2019 7:52 EDT [facility] Comment: Is Patient Admitted or Awaiting Admission?:no Test performed or referred by The [address] [address] COVID-19 rt-PCR Result Not Detected Negative 08/11/2019 7:52 EDT [facility] Comment: Negative results do not preclude 2019-nCoV infection and should not be used as the sole basis for treatment or other patient management decisions. Negative results must be combined with clinical observations, patient history, and epidemiological information. This test was developed and its performance characteristics determined by [facility]. It has not been cleared or approved by the US Food and Drug Administration. FDA does not require this test to go through premarket FDA review. This test is used for clinical purposes. It should not be regarded as investigational or for research. This laboratory is certified under the Clinical Laboratory Improvement Amendments (CLIA) as qualified to perform high complexity clinical laboratory testing. This test is based on the CDC COVID-19 Emergency Use Authorization (EUA) assay, with minor modification as defined by the FDA Performed on the [employer] [address]. 08/09/2019 10:0 5 EDT 08/09/2019 11:28 EDT Stevenson petty Sa, MD MICROBIOLOGY - GENERAL ORDERABLES [facility] [address] [place] [address] documented in this encounter Visit Diagnoses Diagnosis Screening for viral disease- Primary Special screening examination for unspecified viral disease documented in this encounter Care Teams Formation Fracturing Operator Relationship Specialty Start Date End Date Purvi Amador NP [address] [place] [address] PCP - General 08/18/14 documented as of this encounter
--- OUTSIDE RECORDS SUMMARY | 2023-08-27 18:16 | XMS_ITS | Encounter Summary ---
Author Organization [facility] Address [address] [place] [address] Care Team Providers Care Swage Tender Name Role Phone Purvi Amador PATIENT INSURANCE CLERK Primary Care Provider [phone] Encounter Details Date Type Department Care Team (Late st Contact Info) Description 11/26/2018 Results Only [facility] [phone] Miriam Davis PA-C [address] [place], [place] [address] Social History Tobacco Use Types Packs/Day Years [...] Date/Time Associated Diagnosis Comments SURGICAL PATHOLOGY Routine 11/26/2018 16 :13 EDT documented in this encounter Results * SURGICAL PATHOLOGY (11/26/2018 16:13 EDT) Pathology Report: SURGICAL PATHOLOGY REPORT Reports generated via electronic interface contain original data; however they are lacking the format of the original report. Caution should be taken when reading/interpreting unformatted reports. Name: ? MICHAEL MACKENZIE ? Accession #: ? [id number] ? : ? 1945 (Age: 73) ??M ? Collect Date: ? 11/26/2018 ? Location: ? [facility] ? Receive Date: ? 11/26/2018 ? Provider: MIRIAM DAVIS PA-C Copy to: ? Final Pathologic Diagnosis: SKIN OF LATOYA OF ANTIHELIX, LEFT SUPERIOR, SHAVE BIOPSY: - Squamous cell carcinoma, well differentiated, invasive. - Squamous cell carcinoma present at peripheral tissue edge. Microscopic Description: The stratum corneum is thickened by orthohyperkeratosis and parakeratosis. Emanating from the epidermis and extending into the dermis is a proliferation of atypical squamous epithelium. ??The proliferation consists of variably sized, irregular islands associated with dermal desmoplasia. ??The cells have an increased nuclear-cytoplasmic ratio and nuclear pleomorphism. ??Intercellular bridge and keratin christine formation are evident. ??(Dr. Downey)/jds Document reviewed and electronically signed by: IVANA DOWNEY MD Report ??Date: 11/27/2018 23:02 By the signature above, the attending physician certifies that he/she has personally conducted a gross and/or microscopic examination of the described specimens and rendered or confirmed the above diagnosis. Specimen(s) Received: Left superior latoya of antihelix shave biopsy Clinical History: Crusted tender papulonodule; DDx: Squamous cell carcinoma vs actinic keratosis; Mohs TH; clinical diagnosis code: ??D48.5 Gross Description: ? Received in formalin labelled with proper patient identification (initials S, W) and left superior latoya of antih... is an ovoid skin shave, 0.6 x 0.5 x 0.1 cm. The skin surface is encrusted britt. The margin is inked. Bisected and entirely submitted in 1. DINESH Garay (ASCP) 11/26/2018 5:10 PM End of Report [facility] 11/26/2018 16:1 3 EDT 11/26/2018 16:13 EDT Miriam Davis PA-C PATHOLOGY ORD ERABLES [facility] [address] [place] [address] documented in this encounter Visit Diagnoses Not on filedocumented in this encounter Care Teams Swage Tender Relationship Specialty Start Date End Date Purvi Amador, LEANDRO [address] [place] [address] PCP - General 08/18/14 documented as of this encounter
--- OUTSIDE RECORDS SUMMARY | 2023-08-27 18:16 | XMS_ITS | Encounter Summary ---
Author Organization [facility] Address [address] [place] [address] Care Team Providers Care New Vehicle Sales Consultant Name Role Phone Purvi Chery AIR DEFENSE CONTROL OFFICER Primary Care Provider [phone] Encounter Details Date Type Department Care Team (Late st Contact Info) Description 05/27/2018 Results Only [facility] [phone] Miriam Davis PA-C [address] [place], [place] [address] Social History Tobacco Use Types Packs/Day Years [...] Date/Time Associated Diagnosis Comments SURGICAL PATHOLOGY Routine 05/27/2018 21 :06 EDT documented in this encounter Results * SURGICAL PATHOLOGY (05/27/2018 21:06 EDT) Pathology Report: SURGICAL PATHOLOGY REPORT Reports generated via electronic interface contain original data; however they are lacking the format of the original report. Caution should be taken when reading/interpreting unformatted reports. Name: ? MICHAEL MACKENZIE ? Accession #: ? [id number] ? : ? 1945 (Age: 72) ??M ? Collect Date: ? 05/27/2018 ? Location: ? [facility] ? Receive Date: ? 05/27/2018 ? Provider: MIRIAM DAVIS PA-C Copy to: PURVI CHERY AIR DEFENSE CONTROL OFFICER ? Final Pathologic Diagnosis: SKIN OF CONFUCIANIST, LEFT LATERAL, SHAVE BIOPSY: - Squamous cell carcinoma, well differentiated, invasive. - Squamous cell carcinoma present at deep tissue edges. Microscopic Description: The stratum corneum is thickened by orthohyperkeratosis and parakeratosis. Emanating from the epidermis and extending into the dermis is a proliferation of atypical squamous epithelium. ??The proliferation consists of variably sized, irregular islands associated with dermal desmoplasia. ??The cells have an increased nuclear-cytoplasmic ratio and nuclear pleomorphism. ??Intercellular bridge and keratin christine formation are evident. ??(Dr. Downey)/[facility] Document reviewed and electronically signed by: IVANA DOWNEY MD Report ??Date: 05/28/2018 16:48 By the signature above, the attending physician certifies that he/she has personally conducted a gross and/or microscopic examination of the described specimens and rendered or confirmed the above diagnosis. Specimen(s) Received: Left lateral jewish shave biopsy Clinical History: 8.0 mm pearly, telangiectatic papule ([id number]); DDx: Basal cell carcinoma vs follicular pap; clinical diagnosis code: ??D48.5 Gross Description: ? Received in formalin labelled with proper patient identification (initials S, W) and left lateral jewish is a shave biopsy of avelar-white skin (0.6 x 0.5 x 0.1 cm). There is a red-brown telangiectatic papule (0.4 x 0.3 x 0.1 cm) with a peripheral depression located on the skin surface. The margin is inked blue. The tissue is bisected and entirely submitted in 1. DINESH Chaney (ASCP) 05/28/2018 7:43 AM End of Report [facility] 05/27/2018 21:0 6 EDT 05/27/2018 21:06 EDT Miriam Davis PA-C PATHOLOGY ORD ERABLES [facility] [address] [place] [address] documented in this encounter Visit Diagnoses Not on filedocumented in this encounter Care Teams New Vehicle Sales Consultant Relationship Specialty Start Date End Date Purvi Chery NP [address] [place] [address] PCP - General 08/18/14 documented as of this encounter
--- OUTSIDE RECORDS SUMMARY | 2023-08-27 18:16 | XMS_ITS | Encounter Summary ---
Author Organization [facility] Address [address] [place] [address] Care Team Providers Care Sample Display Preparer Name Role Phone Purvi Amador LAUNDRY SUPERVISOR Primary Care Provider [phone] Encounter Details Date Type Department Care Team (Latest Contact Info) Description 03/30/2015 8:36 EST - 03/30/2015 8:37 [facility] Encounter [address] [address] Estuardo Franks PA [address] [place] [address], [address] [place], [place] [id number] Discharge Disposition: Home or Self Care Social [...] on file documented as of this encounter Discharge Diagnoses Diagnosis C44.629 Squamous cell carcinoma skin/ left upper limb, inc shoulder-C44.629[ICD-10-CM] documented in this encounter Medications at Time of Discharge Medication Sig Dispensed Refills Start Date End Date betamethasone dipropionate 0.05 % lotion Apply topically 2 times daily cetirizine (ZYRTEC) 10 mg tablet Take 10 mg by mouth daily. NONFORMULARY Take by mouth daily green Vibrance - supplements TAMSulosin (FLOMAX) 0.4 mg capsule Take 1 Capsule by mouth daily. venlafaxine (EFFEXOR-XR) 150 mg XR capsule Take 1 Capsule by mouth daily. clindamycin (CLEOCIN) 150 mg capsule Take 2 Caps by mouth 3 times daily 5 Cap 0 10/19/2014 09/05/2015 omeprazole (PRILOSEC OTC) 20 mg tablet Take 20 mg by mouth daily as needed 09/05/2015 oxyCODONE (ROXICODONE) 5 mg immediate release tablet Take 1-3 Tabs by mouth every 3 hours as needed for Pain Daily Max: 120 mg 70 Tab 0 10/19/2014 09/05/2015 [place] ORAL Take by mouth daily documented as of this encounter Discharge Disposition Disposition Code Departure Means Destination Home or Self Care documented in this encounter Plan of Treatment Not on file documented as of this encounter Visit Diagnoses Not on filedocumented in this encounter Care Teams Sample Display Preparer Relationship Specialty Start Date End Date Purvi Amador, LAUNDRY SUPERVISOR [address] [place] [address] PCP - General 08/18/14 documented as of this encounter
--- OUTSIDE RECORDS SUMMARY | 2023-08-27 18:16 | XMS_ITS | Encounter Summary ---
Author Organization [facility] Address [address] [place] [address] Care Team Providers Care Marker Maker Name Role Phone PerryPurvi Cr UPHOLSTERY HANDLER Primary Care Provider [phone] Encounter Details Date Type Department Care Team (Late st Contact Info) Description 09/23/2015 Documentation Visit [facility] ENT- Main [place] [address] [place], [place] [id number] Enrrique Mcdaniel MD [address] [place] [address] DINESH FRANCOIS [phone] Social History Tobacco Use Types Packs/Day Years Used Date Smoking Tobacco: Former Cigarettes 1 19 Alcohol Use Standard Drinks/Week Comments No 0 (1 standard drink = 0.6 oz pur e alcohol) Sex and Gender Information Value Date Recorded Sex Assigned at Not on file Gender Identity Male 08/12/2019 12:25 EDT Sexual Orientation Not on file documented as of this encounter Progress Notes * Enrrique Mcdaniel MD - 09/23/2015 0914 EDT [facility] ENT September 23, 2015 Michael Valdez [address] [place] [address] : 1945 Dear Mr Valdez: I am happy to inform you that the MRI scan did not show any evidence of tumor or growth to account for the left-sided hearing loss. The MRI included evaluation of the brain, which showed mild age-related changes. If you have any questions regarding this information, please do not hesitate to contact me. Sincerely, Enrrique Mcdaniel MD 09 01 AM - Enrrique Mcdaniel MD mn Dictation ID: [id number] cc: Purvi Amador UPHOLSTERY HANDLER, [address] [address] The Patient documented in this encounter Plan of Treatment Not on file documented as of this encounter Visit Diagnoses Not on filedocumented in this encounter Care Teams Marker Maker Relationship Specialty Start Date End Date Purvi Amador NP [address] [place] [address] PCP - General 08/18/14 documented as of this encounter
--- OUTSIDE RECORDS SUMMARY | 2023-08-27 18:16 | XMS_ITS | Encounter Summary ---
Author Organization [facility] Address [address] [place] [address] Care Team Providers Care Submarine Element Coordinator Name Role Phone Purvi Amador E COMMERCE RETAILER Primary Care Provider [phone] Reason for Visit * Reason Comments Squamous Cell Carcinoma left antihelix * Referral (Routine) - Closed Specialty Diagnoses / Procedures Referred By Niko baldwin Referred To Contact Dermatology Diagnoses Squamous cell carcinoma of face [facility] [address] [place] [id number] Referral ID Status Reason Start Date Expiration Date Visits Re quested Visits Authorized [id number] Closed 1 1 Encounter Details Date Type Department Care Team (Late st Contact Info) Description 12/26/2018 9:00 EST Office Visit [facility] [address] [id number] Joni Mcdonald MD [address] [place] [address], [address] [place] [id number] 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 You may shower or bathe after 24 hours; remove thebandage and replace it after the shower (see wound care section below for instructions on how to dothis). DISCOMFORT: Expect some discomfort. Tylenol, taken as directed by the intelligence operations, will help relieve pain. If Tylenol does [...] of the wound ?? Fever or chills DERMATOLOGY WOUND CARE INSTRUCTIONS FOR CRYOSURGERY The area you had treated with liquid nitrogen therapy may swell, blister and throb for 24 hours. You may see blood in the blisters. If the blisters open, apply Vaseline/petroleum jelly until the areahas healed. We do not recommend the use of triple antibiotic ointment or other ointments as they can cause allergic reactions. Any scabs that form should fall off within 14-21 days. CONTACT THE OFFICE IF YOU EXPERIENCE: ?? increasing redness ?? warmth to touch ?? increasing pain ?? drainage with a foul odor ?? rapid swelling of the wound ?? fever or chills Please call our office or . documented in this encounter Progress Notes * Joni Mcdonald MD - 12/26/2018 0900 EST Images from the original note were not included. MOHS SURGERY POST-OP SUMMARY Michael Valdez is a 73 y.o. year old male who underwent Mohs surgery today 12/25/2018. The following is a summary of the operative findings: Lesion 1 Well differentiated invasive squamous cell carcinoma Location left antihelix Size Preop (cm) 0.8 cm x 0.6 cm Size Postop (cm) 1.2 cm x 0.9 cm Stages 1 Depth of Excision perichondrium Repair second intention Mr. Valdez was discharged from the operative suite in good condition. He was carefully instructed in postoperative wound care both verbally and in writing. The patient will return for follow up as needed. Note: ADDITIONAL PROCEDURE: In additon to the above two actinic keratoses on the left preauricular cheek was/were destroyed with LN2 as per the separate procedure note in the patient's record. Joni Mcdonald MD 12/26/2018 12:38 MOHS OPERATIVE REPORT Patient Name: Michael Valdez Date of Service: December 25, 2018 Surgeon: Joni Mcdonald MD [employer] Retailer: Lion Padron PA-C Case #: [id number] Mohs AUC Score: 9 (APPROPRIATE) Preoperative Diagnosis: Well differentiated invasive squamous cell carcinoma Preoperative Procedure: Mohs micrographic surgery Location of Lesion: left antihelix Preoperative Lesion Size: 0.8 cm x 0.6 cm Preoperative Procedure: Mohs microscopically-controlled fresh tissue excision Indications: The patient presents with a well differentiated invasive squamous cell carcinoma. Because of the histologic and clinical nature of the lesion, as well as its location, the need to achieve the highest cure rate while providing maximum tissue preservation warranted tumor extirpation via microscopically- controlled excision using the Mohs fresh tissue technique. Alternate therapeutic options were discussed on several occasions prior to surgery. After informed consent was obtained and appropriate instruction was provided, the patient underwent tumor extirpation by the Mohs fresh tissue technique as follows: PROCEDURE - INITIAL STAGE: Patient position: supine Anesthesia: 1% lidocaine with epinephrine 1:100,000 local infiltration Prep: Povodine Iodine No data found. The patient was brought to the operative suite. The lesion was identified and was prepped in a sterile fashion. The area was infiltrated with lidocaine/epinephrine to achieve complete anesthesia and to augment hemostasis. The Mohs procedure was then carried out by Dr. Mcdonald as follows: An initial b eveled excision was performed to the perichondrium with a scalpel blade and tissue scissors as indicated. A hash was created in the specimen and within the adjacent epidermis for marking purposes. The Mohs specimen was excised in a sharp manner, and carefully placed in proper orientation on the surgical tray. Hemostasis of the operative wound was obtained with careful spot electrocoagulation. A sterile non-adherent dressing was applied to the operative wound. The Mohs tissue specimen was carefully transferred to the lab where the tissue was divided, and color inked for orientation. These specimens were mapped and then handed personally by the doctor to the nuclear technician for frozen sectioning. The tissue was embedded so that the deep and surface margins layin the same plane, and sections were made through this plane. Once the slide preparation was complete Dr. Mcdonald performed histologic evaluation and interpretation of all sections. A summary of the findings may be found below. Stage 1 findings: Wound Depth perichondrium Sections Created 2 Number of Sections Containing Tumor 0 (SUN DAMAGED SKIN: Sections consist of a portion of skin, including epidermis, dermis, and subcutis. The epidermis is unremarkable. There is chronic patchy inflammation and solar elastosis present within the dermis. There is no evidence of malignancy). ADDITIONAL STAGES: None With the patient clear of microscopic tumor, surgery was considered complete. The wound was left toheal by GRANULATION. Postoperative Wound Size: 1.2 cm x 0.9 cm Final Diagnosis: Well differentiated invasive squamous cell carcinoma Final Procedure: Mohs micrographic surgery Blood Loss: Minimal Operative Time: 45 minutes Complications: None Note: None Joni Mcdonald MD 12/26/2018 12:52 CRYOSURGERY PROCEDURE NOTE PATIENT INFORMATION: Michael Valdez [id number] DATE OF PROCEDURE: 12/26/2018 INDICATION(S): actinic keratosis(es) LOCATION(S): Left preauricular cheek The indication, risks, benefits and alternatives to this procedure were discussed in detail with the patient and all questions were answered. A total of 2 lesion(s) on the above stated locations weredestroyed with liquid nitrogen cryosurgery. The expected reaction and healing course were discussed, as well as the possibility of incomplete resolution and/or permanent dyspigmentation. Verbal woundcare instructions were given. COMPLICATIONS: None NOTE: None Joni Mcdonald MD 12/26/2018 12:52 * Yuli Moreno MA - 12/26/2018 0900 EST Patient Education Topic: wound care Method: Handout and Verbal Taught to: Patient Barriers: Cognitive Outcomes: independent Signature: YULI MORENO MA Scraper Tender, Dermatology 9:16 12/26/2018 documented in this encounter Plan of Treatment Not on file documented as of this encounter Procedures Procedure Name Priority Date/Time Associated Diagnosis Comments PROCEDURE REPORTS - SCANNED 12/31/2018 16:06 EST documented in this encounter Results * PROCEDURE REPORTS - SCANNED (12/31/2018 16:06 EST) 12/31/2018 16:0 6 EST Scan 2 Wage And Salary Specialist PROCEDURE/MINOR DANIELLA GICAL ORDERABLES documented in this encounter Visit Diagnoses Diagnosis Squamous cell carcinoma of antihelix of left ear- Primary 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
--- OUTSIDE RECORDS SUMMARY | 2023-08-27 18:16 | XMS_ITS | Encounter Summary ---
Author Organization [facility] Address [address] [place] [address] Care Team Providers Care Alternative Dispute Resolution Mediator Name Role Phone Purvi Amador ED SPECIAL EDUCATION TEACHER Primary Care Provider [phone] Encounter Details Date Type Department Care Team (Latest Contact Info) Description 10/19/2014 6:26 EDT - 10/19/2014 14:25 EDT Hospital Encounter [facility] Perioperative Services - [address] [id number] Maricarmen Melgoza III, MD [address] [place] [address] Shoulder impingement, left (Primary Dx); Tear of left rotator cuff, unspecified tear extent Discharge Disposition: Home or Self Care Social [...] Sign Reading Time Taken Comments Blood Pressure 132/66 10/19/2014 1356 EDT Pulse - - Temperature 36 ??C (96.8 ??F) 10/19/2014 1356 EDT Respiratory Rate 16 10/19/2014 1357 EDT Oxygen Saturation 97% 10/19/2014 1357 EDT Inhaled Oxygen Concentration - - Weight 72.6 kg (160 lb) 10/13/2014 0856 EDT Height 180.3 cm (5' 10.98) 10/13/2014 0856 EDT Body Mass Index 22.33 10/13/2014 0856 EDT documented in this encounter Discharge Instructions * Discharge Instructions* Raquel Moon PA - 10/19/2014 10:23 EDT Images from the original note were not included. [facility] SHOULDER ARTHROSCOPY POSTOPERATIVE INSTRUCTIONS Your arthroscopy results included: Impingement, AC joint DJD, rotator cuff tear, partial tear of bicep tendon Treatment included: Arthroscopic rotator cuff repair, decompression, distal clavicle excision, mini- open biceps tenodesis Dressing Care: Underneath your sling and Cryo/Cuff is a bulky dressing covering your incisions. This should remain in place for 72 hours following surgery. At that point the dressing can be removed and you can shower regularly and perform pendulums as described below. Do not bathe or submerse yourself in water. Dry the incisions carefully and cover with Band-Aids. Some slight drainage is normal. Cryo/Cuff: Continue to use the Cryo/Cuff as ice is an excellent treatment for postoperative pain. Sling: The sling is not only for your comfort, but also for your protection. Continue to wear your sling until your follow up appointment unless directed to do otherwise. Most arthroscopic rotator cuff or labral repairs require the use of the sling for 4-6 weeks following surgery. It is okay to useyour hand and wrist for light activities as long as your sling is on and your elbow is by your side. (i.e., typing, writing, etcetera). You should wear the sling when sleeping. Sleeping in a reclinermight be more comfortable. Exercises/Pendulums: These are best done in the shower at first, and are not to be done until 72 hours after your surgery. Bend forward about 90 degrees at the waist, using your good (non-operative) arm for support and balance. Rock your body in a circular pattern allowing your arm to dangle clockwise then counterclockwise for at least 30 seconds. Try to perform these 3 times a day. The motion of your upper body, not your shoulder muscles should move your arm. When finished, put your sling back on. Elbow / Wrist / Hand Range of Motion: When the sling is off in the shower or for pendulums, gently work on passive elbow range of motion by trying to straighten and flex the elbow. DO NOT FORCE and you MUST use your good arm for assistance. Also practice opening and closing your hand, and squeeze the ball that came with the Ultra Sling. Pain Control: You may not have much pain immediately after surgery due to a nerve block performed by your surgeon or the anesthesiologist. Try to begin your pain medication before this nerve block wears off. Taking Tylenol regularly as described on the bottle is advised for at least the first few days, but only if your prescription pain medications do not contain Tylenol in them. See below for your specific pain medications. Unless circled below, do not take ibuprofen, Motrin or Advil for the first 6 weeks after your surgery, as these drugs may slow the healing process. The instructions for use are on the prescription bottles: Tylenol and Oxycodone (as prescribed) Nausea & Vomiting Medications: You may have been given meds for nausea secondary to the effectsof anesthesia or to treat any nausea induced by your pain medications. Narcotics can lead to constipation; using an xrht-dnp-xvngjiu stool softener may be helpful. Colace (wyhr-hvl-fipsqzd stool softener) * You have also been given an antibiotic (Clindamycin) to be taken for the next 24 hours only. Please take an aspirin daily until your follow up appointment. Things to Call Your Surgeon About: If the incisions become red, have continuous drainage, smell foul, or if you develop persistent fevers (greater than 100.4 F degrees) vomiting, or diarrhea, shortness of breath or calf pain; call your surgeons office. There is always someone available. documented in this encounter Medications at Time [...] mouth daily documented as of this encounter Ordered Prescriptions Prescription Sig Dispensed Refills Start Date End Da te oxyCODONE (ROXICODONE) 5 mg immediate release tablet Take 1-3 Tabs by mouth every 3 hours as needed for Pain Daily Max: 120 mg 70 Tab 0 10/19/2014 09/05/2015 clindamycin (CLEOCIN) 150 mg capsule Take 2 Caps by mouth 3 times daily 5 Cap 0 10/19/2014 09/05/2015 clindamycin (CLEOCIN) 150 mg capsule Take 2 Caps by mouth 3 times daily 5 Cap 0 10/19/2014 10/19/2014 oxyCODONE (ROXICODONE) 5 mg immediate release tablet Take 1-3 Tabs by mouth every 3 hours as needed for Pain Daily Max: 120 mg 60 Tab 0 10/19/2014 10/19/2014 documented in this encounter Discharge Disposition Disposition Code Departure Means Destination Home or Self Care documented in this encounter Progress Notes * Rose Daily, CHASE - 10/13/2014 0917 EDT Michael Valdez has been instructed as follows regarding medication administration for the day of the scheduled procedure. Date of Surgery: 10/19/14 Instructions for Taking Medications Day of Surgery Medication Sig Last Dose Hold DOS Take DOS betamethasone dipropionate 0.05 % lotion Apply topically 2 times daily XX cetirizine (ZYRTEC) 10 mg tablet Take 10 mg by mouth daily as needed for Allergies Yes, PRN NONFORMULARY Take by mouth daily green Vibrance - supplements 10/13/14 XX omeprazole (PRILOSEC OTC) 20 mg tablet Take 20 mg by mouth daily as needed Yes, PRN tamsulosin (FLOMAX) 0.4 mg capsule Take 0.4 mg by mouth daily Yes VALERIAN ROOT ORAL Take by mouth daily 10/13/14 XX venlafaxine (EFFEXOR XR) 150 mg XR capsule Take 150 mg by mouth daily Yes documented in this encounter H&P Notes * Maricarmen Melgoza MD - 10/19/2014 0701 EDT The preoperative history and physical which was performed within 30 days of this procedure has been reviewed and the clinically appropriate elements of the physical examination have been repeated. There are no changes to the documented history and physical or if so such changes are documented below. See addended Orthopaedic office notes for musculoskeletal portion of the pre-op physical exam MARICARMEN MELGOZA MD 10/19/2014 7:02 Source Note - TRAINING DEVELOPMENT DIRECTOR, SCAN 2 - 10/14/2014 9:48 EDT documented in this encounter OR Notes * OR Surgeon - Maricarmen Melgoza MD - 10/20/2014 0915 EDT OPERATIVE REPORT SERVICE DATE: 10/19/2014 PREOPERATIVE DIAGNOSIS: Left shoulder supraspinatus tear, impingement, acromioclavicular arthrosis. POSTOPERATIVE DIAGNOSIS: Left shoulder supraspinatus tear, impingement, acromioclavicular arthrosis, plus biceps tendinosis and superior labrum anterior and posterior tear. PROCEDURE: Left shoulder: 1. Arthroscopic supraspinatus repair. 2. Arthroscopic biceps tenotomy. 3. Mini open, subpectoralis biceps tenodesis. 4. Arthroscopic subacromial decompression (anterior inferior acromioplasty and debridement of coracoacromial ligament). 5. Arthroscopic distal clavicle excision. SURGEON: Maricarmen Melgoza III, MD CONDUIT BENDER: Raquel Moon PA-C (There were no orthopedic residents available to assist with thisprocedure) ANESTHESIA: General endotracheal plus local. INDICATIONS: This is a 69-year-old male with persistent left shoulder pain, weakness and disability, which has not responded to a lengthy period of conservative, nonoperative measures. His physical findings, as well as MRI findings have suggested a significant supraspinatus tear with impingement and acromioclavicular arthrosis. Having not responded to a lengthy period of conservative measures he has elected to proceed with surgical intervention. Please refer to the history and physical with addended orthopedic office notes within this chart for further documentation of indications for this procedure. NARRATIVE: The patient was brought to the operating room and placed on the OR table in the supine position where a general endotracheal anesthetic was administered without complication. Venodyne sequential compression stockings were placed on his legs, and a warming blanket was placed on his trunk.He was placed in the semi Stewart's position using a TENET table. All bony prominences were well padded. Neck was carefully kept in neutral position and head secured to the headrest with a foam face mask securely fashioned around his forehead and loosely fashioned around his mandible. The table was placed in reverse Trendelenburg until his trunk was vertical. The left shoulder was examined under anesthesia and found to have a full range of motion with no laxity appreciated to load and shift testing anteriorly, inferiorly or posteriorly at 0, 45 or 90 degrees of abduction in the scapular plane. The left shoulder was prepped with ChloraPrep and draped in a sterile fashion with the arm draped freely. A Spider arm support was utilized to support the arm. The shoulder was prepped with Betadine and alcohol and the subacromial space, glenohumeral joint and acromioclavicular joint were infiltrated with 0.25% Marcaine with epinephrine (30 mL). The shoulder was then formally prepped and draped in a sterile fashion. Using a MyVR arthroscopic pump set at 50 mmHg, lactated Ringer inflow solution was utilized. A 4.5 mm arthroscope was introduced without difficulty using a dull trocar atraumatically through a standard posterior portal. The glenohumeral joint, superior, middle and inferior glenohumeral ligaments, subscapularis, supraspinatus, infraspinatus, teres minor and biceps tendons were all evaluated arthroscopically. When needed, a separate anterior portal was used through the rotator interval, placed just lateral to the coracoid process and the portal was placed under direct visualization with needle localization. Then 0.25% Marcaine with epinephrine was instilled into the portal prior to placement with an 11-blade scalpel. Care was taken to protect the biceps tendon and subscapularis tendons as well as labrum during the portal placement. A hook probe was used to facilitate the evaluation of the shoulder. The arthroscope was then removed from the glenohumeral joint and placed in the subacromial space where arthroscopic evaluation was done to inspect the bursa. When required, for visualization a limited bursectomy was done with a 4.5 mm shaver and radiofrequency ablation device. A standard posterior portal was used for visualization and the standard anterolateral portal as well as the standard anterior portal was utilized. The anterior portal was the same skin incision which had previously been placed for the anterior rotator interval portal but the dull trocar was reintroduced into the subacromial space at the region of the acromioclavicular joint. The arthroscope was moved around from portal to portal for better visualization. Note that epinephrine was instilled into each 3 L bag of lactated Ringer inflow solution based uponour standard protocol. Arthroscopic findings revealed that there was abundant synovitis in the glenohumeral joint. There was a minimal thickness tear of the supraspinatus on the articular surface just adjacent to the biceps. With probing though, this appeared to extend more peripherally into the midsubstance of the anterior greater tuberosity. The subscapularis, the remainder of the supraspinatus and the infraspinatus as well as teres minor all appeared to be intact on the articular surfaces. The labrum was intact circumferentially except for posteriorly superiorly. There was a longitudinalsplit in the labrum at its attachment site extending up into the shoulder and into the substance ofthe biceps tendon consistent with a SLAP tear and biceps tendinosis. This was likely thought to be a pain generator; therefore, an upbiting basket biter was used to create a biceps tenotomy. The arthroscope was removed, and an anterior incision was made in the anterior axillary fold in a curvilinear fashion roughly 3 cm in length. Dissection was taken to the pectoralis major muscle, which was dissected laterally to the tendon and to its tendinous attachment on the humerus. The intervalbetween this muscle and the biceps muscle was gently developed and the pectoralis major retracted anteriorly and superiorly, and the biceps muscle retracted posteriorly and laterally. This allowed dissection to expose the long head of the biceps tendon, which was then pulled out of the incision. A narrow Hohmann retractor was placed around the humeral shaft to retract the pectoralis major muscle and tendon cephalad. The long head of the biceps tendon was then secured using a #2 FiberWire continuous looped suture, starting at the musculotendinous junction and extending proximally 2 cm where the tendon was then transected. The tendon was sized and found to fit through a 7 mm tunnel snugly. The anterior surface of the humerus was exposed beneath the pectoralis major with an elevator. Hemostasis was maintained with an electrocautery device. A guidepin was then placed into the anterior humerus at the appropriate location for the biceps tenodesis after lying the biceps muscle and tendon along the shaft of the humerus determining its appropriate tenodesis point with the elbow flexed 90 degrees. This guidepin was overreamed with a 7 mm cannulated reamer through the anterior cortex of the humerus into the medullary canal. This was irrigated copiously. The tendon was then secured to an Arthrex Bio-tenodesis screwdriver containing a 7 mm x 10 mm vented PEEK headless cannulated [place] type Bio-Tenodesis interference screw. One limb of the FiberWirefrom the tendon was placed through the screwdriver and therefore through the screw. This was used to secure it to the screwdriver, which was used to then deliver the tendon into the socket and advance it roughly 12 mm. The screw was then advanced off the screwdriver into the socket until it was flush with the humeral cortex anteriorly to create an excellent interference fit. The screwdriver was then removed and traction applied to the FiberWire sutures, and there was found to be excellent purchase. The sutures were then tied over this screw as a secondary level of fixation. Copious irrigationwas utilized. The pectoralis major was allowed to fall back in location and further irrigation was done. The elbow could be extended fully and supinated fully with appropriate tension noted on the biceps muscle. The biceps tenodesis incision was then closed with 3-0 Monocryl inverted simple sutures and a running 4-0 Monocryl subcuticular stitch reinforced with Steri- Strips over Mastisol. The arthroscope was then placed into the subacromial space where a fzrjgmoj-rp-cswvau amount of bursitis was noted treated with partial bursectomy using a Megavac 90 radiofrequency device as well as a 4.5 mm shaver. The undersurface of the coracoacromial arch as well as the undersurface of the acrom ion was cleared of soft tissue. The bursal tissue adherent to the undersurface of the deltoid muscle was also removed, taking care to protect the deltoid muscle in its insertion site. This was done to expose the entire supraspinatus musculotendinous junction, as well as the infraspinatus and superior part of the subscapularis. This was also done to expose the anterior inferior acromion, coracoacromial ligament (which was preserved), and the undersurface of the acromioclavicular joint where moderately large osteophytes were noted projecting inferiorly. More posteriorly, the acromioclavicular joint osteophyte was found to impinge severely on the supraspinatus anterior muscle fibers. Lateral to this, there was a complex bursal-sided tear of the supraspinatus. There was a large, roughly 60% thick flap tear of the supraspinatus which was reflected posteriorly. The tear measured roughly 1.5 cm x 2 cm. Its bed was a partial- thickness delaminated type supraspinatus tear with a possible tiny pinhole tear noted just above the partial-thickness tear noted on the articular surface. The rest of the tendon appeared to be intact, as did the infraspinatus and superior part of the subscapularis. Several lateral portals were used. One 50 yard line portal was placed in line with the center portion of the tear, roughly 3 fingerbreadths below the acromion, through which a passport cannula was placed. A second portal was placed 3 fingerbreadths anterior to that but otherwise at the same levelfor visualization, and one placed more posterior to that, also for suture management and instrumentation. A lateral portal placed just adjacent to the acromion was done to create an appropriate angleto place a suture anchor in the articular edge of the anterior footprint in the region of the partial-thickness articular- sided tear. This was further developed by placing the arthroscope into the matt nt, using an 11 blade scalpel through the 50 yard line portal to create a small supraspinatus tenotomy on the bursal surface into the partial-thickness defect in the joint. This was debrided down to bleeding cortical bone using a 4.5 mm shaver. A 4.5 mm dilator was then placed adjacent to articularcartilage and then into this a 5.5 mm triple-loaded Rahman + Nephew Healicoil anchor was placed and fully seated. The delivery device was removed and traction applied to the suture anchor via the sutures. Excellent purchase was noted. These sutures were then passed at first using a spinal needle and#1 PDS placed percutaneously while viewing from the joint through the posterior portal. A 6 mm clear cannula was placed anteriorly through the rotator interval portal for suture management. This PDS passed percutaneously was placed in a slightly oblique fashion to capture the articular-sided tear and bring it more laterally at a differential level than the more bursal-sided tear as these needles were placed beneath the larger flap tear, which was displaced superiorly and posteriorly, and not inthe way of the spinal needle. Two pairs of these sutures were placed in a horizontal mattress fashion, and when traction was applied they were found to have secured the articular sided tear back to its anatomic position. On the bursal surface, an Patreonion passport suture passer was used to pass these sutures in a horizontal mattress fashion through the flap tear. Two were placed simply inthe flap tear in a horizontal mattress fashion, a 3rd was placed in the flap tear, and a 4th was placed using a bird's beak through the more intact anterior edge of the supraspinatus adjacent to the rotator interval capsule. These 4 limbs thus passed included all the limbs that had been passed withthe spinal needle through the articular layer, and when these were pulled taut, the tendon was reduced to its anatomic position. There was an L-shaped extension of this flap tear more medially and the third limb from the triple-loaded Healicoil (which was felt not to be necessary in its current location) was removed from the anchor and used as a free suture passed with a Scorpion suture passer device to create a tcezfb-hy-gqqhz repair of the extended L-shaped limb into the medial aspect of the anterior supraspinatus at the musculotendinous junction. These sutures were then brought out throughthe passport cannula to hold the tendon reduced, and then they were tightened and tied with standard arthroscopic knot- tying technique, tying the most laterally based sutures first to pull the tendon back to its anatomic insertion site and then the more medial and more posterior based sutures next.When these were all tightened and tied, the tendon was found to be anatomically repaired when viewed from the bursal and articular surface, stable to hook probe palpation and stable to range of motion of the shoulder. A 4.5 mm footprint suture anchor was then placed in the proximal lateral metaphysis roughly 1 cm below the lateral edge of the greater tuberosity footprint. This was placed through the passport cannula by selecting 3 limbs of the suture from the suture anchor. One from each knotted pair was selected, which allowed the knot to be pulled laterally and horizontally to lower its impingement superiorly. This also served to spread out the pressure along the supraspinatus contact point. This was passed through a 4.5 mm footprint anchor, tapped in place through the prepared socket, and then tensionedand the ratchet deployed in standard fashion to lock the sutures in position. Suture limbs were transected after delivery device was removed, and this was found to create an anatomic repair of the tendon when viewed from the articular and bursal surfaces. This was stable to hook probe palpation andrange of motion of his shoulder. The acromion was converted to a type 1 using a 5.5 mm pete and block cutting technique. Osteophytesbeneath the acromioclavicular joint were coplaned and removed from inferior to superior, anterior to posterior, and lateral to medial preserving the overlying periosteum and acromioclavicular ligaments superiorly posteriorly and posteriorly inferiorly. The coracoacromial ligament was debrided but was preserved. The attachment sites of the deltoid were preserved anteriorly and laterally. Copious irrigation was done with bony debris removed with a shaver device. At this point, a sponge and needle count was noted to be correct and no adverse clinical events to report. The arthroscopic portals were repaired with 3-0 Prolene simple sutures, except for the most posterior one, through which the arthroscopic cannula and dull obturator were placed in the glenohumeral joint. This was infiltrated with 5 mL of 0.5% ropivacaine. The cannula was redirected to the subacromial space, where an additional 15 mL was delivered and then the posterior portal repaired with 3- 0 Prolene simple sutures. The biceps tenodesis incision was then further reinforced with Steri-Strips over Mastisol. This wascovered with a medium-sized Tegaderm, Telfa, and 4 x 4 gauze trimmed to fit the Telfa. Four sterileTENS unit leads were applied around his shoulder girdle, and then Adaptic was placed over the arthroscopic portals, covered with 4 x 4 gauzes, ABD pads and foam tape. The TENS leads were connected benoit Empi TENS device set at 3.0 for both paired leads. The patient was then placed in a Cryo/Cuff and an UltraSling with abduction pillow. He was extubated, transferred to a hospital stretcher, and taken to PACU in stable condition suffering minimal blood loss and no complications. The EMPI TENS device was set at 3.0 for both paired leads in the shoulder setting. A debrief revealed sponge and needle counts to be correct and no adverse clinical events to report.He did receive 1300 mL of lactated Ringer's IV fluid intraoperatively. There was no urine output. There were no specimens or cultures sent, no drains left behind. He was taken to the PACU in stable condition suffering minimal blood loss and no complications. Unless otherwise noted, there were no complications, no blood loss, no cultures obtained, no specimens removed, and no drains retained. Maricarmen Melgoza III, MD 09 37 PM / Maricarmen Tucker. Kam LEE MD cn Confirmation: [id number] Dictation ID: [id number] documented in this encounter Miscellaneous Notes * Anesthesia Post-Rosaeloy Nena SagastumeAlex - 10/19/2014 1354 EDT Post Anesthesia Evaluation Note Date of Service: 10/19/2014 Michael Valdez, a 69 y.o. year old male has received General Anesthesia today. He has been evaluated, assessed and discharged from anesthesia care with stable cardiorespiratory function and alert mental status. The last set of recorded vital signs and pain rating were reviewed: Heart Rate: 84 BPM (10/19/14 1330), BP: 103/65 mmHg (10/19/14 1315), Resp: 21 (10/19/14 1330), SpO2: 98 % (10/19/14 1330),Numeric Pain Level (Scale 1-10): 0 Michael Valdez participated in this evaluation unless otherwise noted. His pain, nausea and vomiting have been managed and his body temperature and fluid balance have been restored. Additional monitoring and assessment needs have been addressed. If present, any postoperative events are documentedbelow. Alex Sagastume 10/19/2014 13:54 * Brief Op Note - Raquel Moon PA - 10/19/2014 0734 EDT Brief Post-Op Note Date of Surgery: 10/19/2014 Surgeon: Dr. Maricarmen Melgoza Assistants: Raquel Moon PA-C Pre-Op Diagnosis: Left shoulder impingement, AC joint DJD, RTC tear Post-Op Diagnosis: same + partial tear of bicep tendon Procedure(s): Left shoulder arthroscopic RTC repair, decompression/DCE, mini- open biceps tenodesis Findings: see dictated op note Anesthesia Type: General Estimated Blood Loss: Unless otherwise noted, there was no blood loss, specimens removed, cultures obtained, or drains retained. The estimated blood loss was Minimal Fluids: Michael Valdez received 1300cc of fluid replacement. Urine Output: None Specimens/Cultures: None Drains/Packs: None Complications: None Disposition and Condition: Michael Valdez was sent to PACU in Stable condition. DINESH Ballesteros 10/19/2014 7:34 documented in this encounter Plan of Treatment Not on file documented as of this encounter Procedures Procedure Name Priority Date/Time Associated Diagnosis Comments ECG REPORT - SCANNED 10/22/2014 8:27 EDT IMPLANT RECORD - SCANNED 10/22/2014 8:27 EDT ECG REPORT - SCANNED 10/14/2014 9:48 EDT documented in this encounter Results * ECG REPORT - SCANNED (10/22/2014 8:27 EDT) 10/22/2014 8:27 EDT Scan 2 Senior Clinical Data Manager PROCEDURE/MINOR DANIELLA GICAL ORDERABLES * IMPLANT RECORD - SCANNED (10/22/2014 8:27 EDT) 10/22/2014 8:27 EDT Scan 2 Senior Clinical Data Manager PROCEDURE/MINOR DANIELLA GICAL ORDERABLES * ECG REPORT - SCANNED (10/14/2014 9:48 EDT) 10/14/2014 9:48 EDT Scan 2 Senior Clinical Data Manager PROCEDURE/MINOR DANIELLA GICAL ORDERABLES documented in this encounter Visit Diagnoses Diagnosis Shoulder impingement, left- Primary Tear of left rotator cuff, unspecified tear extent Rotator cuff tear Rotator cuff (capsule) sprain Shoulder impingement Other affections of shoulder region, not elsewhere classified documented in this encounter Administered Medications Inactive Administered Medications - up to 3 most recent administrations Medication Order MAR Action Action Date Dose Rate Site acetaminophen (TYLENOL) 500 mg tablet 1 dose, Starting on Sat10/19/14 at 1248, Until Sat10/19/14 at 1245 acetaminophen (TYLENOL) tablet 1,000 mg 1,000 mg, oral, PRE-OP ONCE, 1 dose, On Sat10/19/14 at 0645, Routine, Pre-Op DOS Rx Approved Given 10/19/2014 6:41 EDT 1,000 mg acetaminophen (TYLENOL) tablet 1,000 mg 1,000 mg, oral, Once (Without Time Specified), 1 dose, Starting on Sat10/19/14 at 1243, Until Sat10/19/14 at 1245, Routine Given 10/19/2014 12:45 EDT 1,000 mg celecoxib (CELEBREX) capsule 200 mg 200 mg, oral, PRE-OP ONCE, 1 dose, On Sat10/19/14 at 0645, Routine, Pre-Op DOS Rx Approved Given 10/19/2014 6:40 EDT 200 mg clindamycin (CLEOCIN) IVPB 900 mg 900 mg, intravenous, Administer over 30 Minutes, PRE-OP ONCE, 1 dose, On Sat10/19/14 at 0645, Routine, Pre-Op DOS Rx Approved Given by Other 10/19/2014 7:40 EDT 900 mg fentaNYL citrate (PF) 50 mcg/mL injection 25-100 mcg 25-100 mcg, intravenous, EVERY 5 MIN PRN, Starting on Sat10/19/14 at 1057, Until Sat10/19/14 at 1634, Pain, Routine, Recovery (only) Given 10/19/2014 11:12 EDT 50 mcg Given 10/19/2014 11:06 EDT 50 mcg HYDROmorphone (PF) (DILAUDID) 1 mg/mL injection 0.2-1 mg 0.2-1 mg, intravenous, EVERY 10 MINUTES PRN, Starting on Sat10/19/14 at 1057, Until Tu10/19/14 at 1634, Pain, Routine, Recovery (only) Given 10/19/2014 11:37 EDT 0.3 mg lactated ringers (LR) infusion at 25 mL/hr, intravenous, CONTINUOUS, Starting on Sat10/19/14 at 0645, Until Sat10/19/14 at 1634, Routine, Pre-Op DOS Rx Approved New Bag 10/19/2014 6:56 EDT 25 mL/hr lactated ringers (LR) infusion at 75 mL/hr, intravenous, CONTINUOUS, Starting on Sat10/19/14 at 1115, Until Sat10/19/14 at 1634, Routine, Recovery (only) New Bag 10/19/2014 12:45 EDT 75 mL/hr metoCLOPramide (REGLAN) injection 10 mg 10 mg, intravenous, PRN, 1 dose, Starting on Sat10/19/14 at 1057, Until Sat10/19/14 at 1121, Nausea, Routine, Recovery (only) Given 10/19/2014 11:21 EDT 10 mg ondansetron (PF) (ZOFRAN) injection 2 mg 2 mg, intravenous, PRN, 1 dose, Starting on Sat10/19/14 at 1057, Until Sat10/19/14 at 1121, Nausea, Vomiting, Routine, Recovery (only) Given 10/19/2014 11:21 EDT 2 mg oxyCODONE (OXYCONTIN) CR tablet 10 mg 10 mg, oral, PRE-OP ONCE, 1 dose, On 9/8/15 at 0645, Routine, Pre-Op DOS Rx Approved Given 10/19/2014 6:41 EDT 10 mg oxyCODONE (ROXICODONE) immediate release tablet 5 mg 5 mg, oral, PRN, 2 doses, Starting on Sat10/19/14 at 1057, Until Sat10/19/14 at 1109, Pain, Routine, Recovery (only) Given 10/19/2014 11:09 EDT 5 mg Given 10/19/2014 11:04 EDT 5 mg pregabalin (LYRICA) capsule 75 mg 75 mg, oral, PRE-OP ONCE, 1 dose, On Sat10/19/14 at 0645, Routine, Pre-Op DOS Rx Approved Given 10/19/2014 6:40 EDT 75 mg documented in this encounter Discontinued Medications Medication Sig Discontinue Reason Start Date End Da te clindamycin (CLEOCIN) 150 mg capsule Take 2 Caps by mouth 3 times daily 10/19/2014 10/19/2014 oxyCODONE (ROXICODONE) 5 mg immediate release tablet Take 1-3 Tabs by mouth every 3 hours as needed for Pain Daily Max: 120 mg 10/19/2014 10/19/2014 documented as of this encounter Historical Medications * This list may reflect changes made after this encounter. Medication Sig Dispensed Refills Start Date End Date NONFORMULARY Take by mouth daily green Vibrance - supplements cetirizine (ZYRTEC) 10 mg tablet Take 10 mg by mouth daily. omeprazole (PRILOSEC OTC) 20 mg tablet Take 20 mg by mouth daily as needed 09/05/2015 [facility] ORAL Take by mouth daily added in this encounter Active and Recently Administered Medications Times are shown in EDT. Scheduled Medication Order 10/17/2014 10/18/2014 10/19/2014 acetaminophen (TYLENOL) tablet 1,000 mg (COMPLETED) 1,000 mg, oral, PRE-OP ONCE, 1 dose, On Sat10/19/14 at 0645, Routine, Pre-Op DOS Rx Approved 0641 (Given - Provid er: Lion Marcelo RN) acetaminophen (TYLENOL) tablet 1,000 mg (COMPLETED) 1,000 mg, oral, Once (Without Time Specified), 1 dose, Starting on Sat10/19/14 at 1243, Until Sat10/19/14 at 1245, Routine 1245 (Given - Provid er: Mariana Qureshi RN) celecoxib (CELEBREX) capsule 200 mg (COMPLETED) 200 mg, oral, PRE-OP ONCE, 1 dose, On Sat10/19/14 at 0645, Routine, Pre-Op DOS Rx Approved 0640 (Given - Provid er: Lion Marcelo RN) clindamycin (CLEOCIN) IVPB 900 mg (COMPLETED) 900 mg, intravenous, Administer over 30 Minutes, PRE-OP ONCE, 1 dose, On Sat10/19/14 at 0645, Routine, Pre-Op DOS Rx Approved 0740 (Given by Other - Provider: Dominique Jeffrey RN - Comment: Isaura Bryant MD) oxyCODONE (OXYCONTIN) CR tablet 10 mg (COMPLETED) 10 mg, oral, PRE-OP ONCE, 1 dose, On Sat10/19/14 at 0645, Routine, Pre-Op DOS Rx Approved 0641 (Given - Provid er: Lion Marcelo RN) pregabalin (LYRICA) capsule 75 mg (COMPLETED) 75 mg, oral, PRE-OP ONCE, 1 dose, On Sat10/19/14 at 0645, Routine, Pre-Op DOS Rx Approved 0640 (Given - Provid er: Lion Marcelo RN) Continuous Medication Order 10/17/2014 10/18/2014 10/19/2014 lactated ringers (LR) infusion (CANCELED) at 25 mL/hr, intravenous, CONTINUOUS, Starting on Sat10/19/14 at 0645, Until Sat10/19/14 at 1634, Routine, Pre-Op DOS Rx Approved 0656 (New Bag - Prov ider: Lion Marcelo RN)1051 (Completed - Provider: Radha Larsen, CHASE) lactated ringers (LR) infusion (CANCELED) at 75 mL/hr, intravenous, CONTINUOUS, Starting on Sat10/19/14 at 1115, Until Sat10/19/14 at 1634, Routine, Recovery (only) 1051 (Continued Infu yolie - Provider: Radha Larsen, RN)1245 (New Bag - Provider: Mariana Qureshi RN) PRN Medication Order 10/17/2014 10/18/2014 10/19/2014 fentaNYL citrate (PF) 50 mcg/mL injection 25-100 mcg (CANCELED) 25-100 mcg, intravenous, EVERY 5 MIN PRN, Starting on Sat10/19/14 at 1057, Until Sat10/19/14 at 1634, Pain, Routine, Recovery (only) 1106 (Given - Provid er: Radha Larsen RN)1112 (Given - Provider: Radha Larsen RN) HYDROmorphone (PF) (DILAUDID) 1 mg/mL injection 0.2-1 mg (CANCELED) 0.2-1 mg, intravenous, EVERY 10 MINUTES PRN, Starting on Sat10/19/14 at 1057, Until Tu10/19/14 at 1634, Pain, Routine, Recovery (only) 1137 (Given - Provid er: Radha Larsen RN) metoCLOPramide (REGLAN) injection 10 mg (COMPLETED) 10 mg, intravenous, PRN, 1 dose, Starting on Sat10/19/14 at 1057, Until Sat10/19/14 at 1121, Nausea, Routine, Recovery (only) 1121 (Given - Provid er: Radha Larsen RN) ondansetron (PF) (ZOFRAN) injection 2 mg (COMPLETED) 2 mg, intravenous, PRN, 1 dose, Starting on Sat10/19/14 at 1057, Until 10/19/14 at 1121, Nausea, Vomiting, Routine, Recovery (only) 1121 (Given - Provid er: Radha Larsen RN) oxyCODONE (ROXICODONE) immediate release tablet 5 mg (COMPLETED) 5 mg, oral, PRN, 2 doses, Starting on Sat10/19/14 at 1057, Until Sat10/19/14 at 1109, Pain, Routine, Recovery (only) 1104 (Given - Provid er: Radha Larsen RN)1109 (Given - Provider: Radha Larsen RN) documented in this encounter Orders Medications Ordered That Gary ht Not Have Been Administered Count Last Ordered Date First Ordered Date acetaminophen (TYLENOL) solu tion unit dose cup 325 mg 1 10/19/2014 acetaminophen (TYLENOL) tablet 325 mg 1 09/2014 atropine 0.1 mg/mL syringe 0.5 mg 1 015 diphenhydrAMINE (BENADRYL) i njection 6.25 mg 1 10/19/2014 nalOXone (NARCAN) injection 0.2 mg 1 2014 Admission Count Last Ordered Date First Orde red Date STATUS: OUTPATIENT SURGICAL OP BED/SERVICES 1 10/19/2014 Transfer Count Last Ordered Date First Orde red Date NOTIFY PPS PACU PATIENT DISCHARGE 1 015 Discharge Count Last Ordered Date First Orde red Date DISCHARGE PATIENT 1 10/19/2014 documented in this encounter Care Teams Alternative Dispute Resolution Mediator Relationship Specialty Start Date End Date Purvi Amador, ED SPECIAL EDUCATION TEACHER [address] [place] [address] PCP - General 08/18/14 documented as of this encounter
--- OUTSIDE RECORDS SUMMARY | 2023-08-27 18:16 | XMS_ITS | Encounter Summary ---
Author Organization [facility] Address [address] [place] [address] Care Team Providers Care On Site Soil Evaluator Name Role Phone Purvi Amador DIRECTOR PATIENT ACCOUNTING Primary Care Provider [phone] Reason for Visit * Reason Onset Date Comments Pre-visit Planning 07/23/2019 Encounter Details Date Type Department Care Team (Late st Contact Info) Description 07/23/2019 Telephone [facility] [address] [place], [place] [id number] Mylene Cyr Pre-visit Planning Social History Tobacco Use Types Packs/Day Years [...] encounter Miscellaneous Notes * Telephone Encounter - Mylene Cyr - 07/23/2019 1220 EDT Spoke with Michael, we confirmed appt for ILR implant procedure on 08/11, 1230pm check-n @ [facility] mainreg. Post procedure incision site check appt scheduled for 08/23 @ 245pm with ARNEL Quiles at [facility], [address] [place] [address], [place], [place]. PHONE: [phone] Patient understands and confirmed that they cannot leave or have left the state of [place] within two weeks of their procedure date, due to [id number] restrictions. documented in this encounter Plan of Treatment Not on file documented as of this encounter Visit Diagnoses Not on filedocumented in this encounter Care Teams On Site Soil Evaluator Relationship Specialty Start Date End Date Purvi Amador NP [address] [place] [address] PCP - General 08/18/14 documented as of this encounter
--- OUTSIDE RECORDS SUMMARY | 2023-08-27 18:16 | XMS_ITS | Encounter Summary ---
Author Organization [facility] Address [address] [place] [address] Care Team Providers Care Milk Deliverer Name Role Phone Purvi Amador CHEMICAL MACHINE TENDER Primary Care Provider [phone] Reason for Visit * Reason Onset Date Comments Shingles 10/10/2015 IN HIS RIGHT EAR Encounter Details Date Type Department Care Team (Late st Contact Info) Description 10/10/2015 Telephone [facility] ENT- [facility] [address] [place], [place] [id number] Enrrique Mcdaniel MD [address] [place] [address] DINESH FRANCOIS [id number] Shingles (IN HIS RIGHT EAR) Social History Tobacco Use Types Packs/Day Years [...] encounter Miscellaneous Notes * Telephone Encounter - Estuardo Russ RN - 10/11/2015 1207 EDT Rash is spreading to face and eye, no further changes with ear. He will have a social call this afternoon with a friend who is an transition specialist and ask his opinion if anything else needs to be done. * Telephone Encounter - Kathy Martines - 10/11/2015 0809 EDT Pt calling because his condition has not improved at all. He is requesting to have Gary call him back before talking with Dr. Mcdaniel. * Telephone Encounter - Estuardo Russ RN - 10/10/2015 1014 EDT sx went to ED Saturday with worsening pain, no pustules. Put on AV TID for 7 days and pred taper 60 mg daily x 3 days then 50,40,30,20 & 10 all 3 days each. He already feels better and hashad no hearing changes at any point. He knows to continue treatment as scripted and report any worsening symptoms especially hearing changes as that right ear is his only hearing ear. I will speak toDr. Mcdaniel tomorrow for a plan. * Telephone Encounter - ySlvie Arce - 10/10/2015 0813 EDT Patient calling stating that he was seen in [place] ED over the weekend for shingles in his right ear. The doctor that he saw spoke to Dr. Tian who per patient stated that he should follow-up with our office this week. Please advise. documented in this encounter Plan of Treatment Not on file documented as of this encounter Visit Diagnoses Not on filedocumented in this encounter Care Teams Milk Deliverer Relationship Specialty Start Date End Date Purvi Amador NP [address] [place] [address] PCP - General 08/18/14 documented as of this encounter
--- OUTSIDE RECORDS SUMMARY | 2023-08-27 18:16 | XMS_ITS | Encounter Summary ---
Author Organization [facility] Address [address] [place] [address] Care Team Providers Care Tile Sprayer Name Role Phone Purvi Amador SHAREPOINT MANAGER Primary Care Provider [phone] Encounter Details Date Type Department Care Team (Late st Contact Info) Description 10/10/2017 Results Only Imaging [facility] [phone] Unknown, Provider, Social History Tobacco Use Types [...] Associated Diagnoses Date /Time OUTSIDE IMAGES - PLAIN FILM MSK Imaging 10/10/2017 15:19 EDT documented as of this encounter Visit Diagnoses Not on filedocumented in this encounter Care Teams Tile Sprayer Relationship Specialty Start Date End Date Purvi Amador, SHAREPOINT MANAGER [address] [place] [address] PCP - General 08/18/14 documented as of this encounter
--- OUTSIDE RECORDS SUMMARY | 2023-08-27 18:16 | XMS_ITS | Encounter Summary ---
Author Organization [facility] Address [address] [place] [address] Care Team Providers Care Car Salter Name Role Phone Purvi Amador ASSISTANT AT SURGERY Primary Care Provider [phone] Reason for Visit * Reason Onset Date Comments Hearing Loss 09/13/2015 Tinnitus 09/13/2015 Encounter Details Date Type Department Care Team (Late st Contact Info) Description 09/13/2015 Orders Only [facility] ENT- [facility] [place] [address] [place], [place] [address] Enrrique Mcdaniel MD [address] [place] [address] [place] [phone] Asymmetrical left sensorineural hearing loss (Primary Dx); Tinnitus of both ears Social History Tobacco Use Types Packs/Day Years [...] as of this encounter Visit Diagnoses Diagnosis Asymmetrical left sensorineural hearing loss- Primary Sensorineural hearing loss, asymmetrical Tinnitus of both ears Unspecified tinnitus documented in this encounter Care Teams Car Salter Relationship Specialty Start Date End Date Purvi Amador, ASSISTANT AT SURGERY [address] [place], [place] [address] PCP - General 7/8/15 documented as of this encounter
--- OUTSIDE RECORDS SUMMARY | 2023-08-27 18:16 | XMS_ITS | Encounter Summary ---
Author Organization [facility] Address [address] [place] [address] Care Team Providers Care Broke Beater Operator Name Role Phone Purvi Amador SENIOR INFORMATION SYSTEMS ARCHITECT Primary Care Provider [phone] Reason for Visit * Reason Comments Wound Check left ankle wound Encounter Details Date Type Department Care Team (Latest Contact Info) Description 08/13/2017 9:20 EDT Office Visit [facility] Plastic, Reconstructive & Cosmetic Surgery - [address], [address] [place], [place] [id number] Kandice Cornejo, PA-C [address] [place] [address] [place] [id number] Open wound of left lower leg, subsequent encounter (Primary Dx) Discharge Disposition: Auto Discharge Social [...] as of this encounter Discharge Diagnoses Diagnosis S81.802D Unspecified open wound, left lower leg, subsequent encounter-S81.802D[ICD-10-CM] documented in this encounter Discharge Disposition Disposition Code Departure Means Destination Auto Discharge documented in this encounter Progress Notes * Kandice Cornejo PA - 08/13/2017 0920 EDT SUBJECTIVE: Michael D Courtney returns in followup of a nonhealing ulcer of his left medial malleolus. He has been using Normalgel Ag daily. He reports improvement since last visit. He denies pain. OBJECTIVE: On examination, he is in no distress. His wound shows signs of healing. Superficial callous over the wound approx 1cmx0.5cm in diameter. No surrounding erythema, drainage, or malodor. IMPRESSION: Left medial malleolus ulcer, improving PLAN: Discontinue normlgel ag. Callous trimmed slightly today but most of it is adherent and difficult to debride. Advised using vaseline to soften this. Avoid pressure on area. Follow up in 6 weeks if this does not heal, or earlier if there are any concerns. Patient comfortable with plan. DINESH Patel documented in this encounter Plan of Treatment Not on file documented as of this encounter Visit Diagnoses Diagnosis Open wound of left lower leg, subsequent encounter- Primary documented in this encounter Care Teams Broke Beater Operator Relationship Specialty Start Date End Date Purvi Amador NP [address] [place] [address] PCP - General 08/18/14 documented as of this encounter
--- OUTSIDE RECORDS SUMMARY | 2023-08-27 18:16 | XMS_ITS | Encounter Summary ---
Author Organization [facility] Address [address] [place] [address] Care Team Providers Care Allergist/Md Name Role Phone Purvi Amador REDRAWER Primary Care Provider [phone] Reason for Visit * Auth/Cert Specialty Diagnoses / Procedures Referred By Contac t Referred To Contact Diagnoses Cerebrovascular accident (CVA), unspecified mechanism (HCC-CMS) [I63.9] Cupid, Account Representative Referral ID Status Reason Start Date Expiration Date Visits Re quested Visits Authorized [id number] 07/22/2019 1 1 Encounter Details Date Type Department Care Team (Late st Contact Info) Description 08/12/2019 12:22 EDT - 08/12/2019 13:40 EDT Hospital Encounter [place] [address] EP Lab [address] [place], [place] [id number] Keyon Larson MD [address] [facility], [place], [address] [place] [address] Cerebrovascular accident (CVA), unspecified mechanism (HCC-CMS) Discharge Disposition: Home or Self Care [...] 12:21 EDT documented as of this encounter Last Filed Vital Signs Vital Sign Reading Time Taken Comments Blood Pressure 144/94 08/12/2019 1307 EDT Pulse - - Temperature - - Respiratory Rate - - Oxygen Saturation 100% 08/12/2019 1307 EDT Inhaled Oxygen Concentration - - Weight - - Height - - Body Mass Index - - documented in this encounter Medications at Time [...] Code Departure Means Destination Home or Self Nursing Home documented in this encounter Progress Notes * Keyon Larson MD - 08/12/2019 1317 EDT ILR implant No complications * Aamir Cardona RN - 08/12/2019 0905 EDT ILR implant placed free of complication. 4-0 monocryl/dermabond/steri strips closure. Pt left in good disposition. Discharged to home. Reviewed ILR implant home monitor and f/u appointment. Post procedure incision site check appt scheduled for 08/23 @ 245pm with ARNEL Quiles at [facility], [address] [place] [address]. PHONE: [phone] Pt verified firm understanding ofeducation. Denies further needs at this time. Discharge instructions for patients with ILR monitor Implants Wound Care: Check the wound appearance. Some swelling, redness, and pain are common with all wounds and normally will go away as the wound heals. IF you see any signs of infection (swelling, drainage or fever) or bleeding within the next 2 weeks please call our office at [phone]. If Steri Strips were applied: ??? Keep the wound dry for 4 days then you may shower. Leave the Steri strips in place. They will dry out and fall off on their own in 7-10 days. Do not soak or scrub the wound area. To dry, gently pat with a soft towel or cloth. ??? Avoid Topical Medications. Do not apply liquid or ointment medications, lotions, creams, petroleum jelly, mineral oils or any other product to your wound ??? Do not rub, scratch, or pick at the wound. Doing so may prevent the wound from closing appropriately and cause scarring. If Skin adhesive was used: ??? Keep the wound dry the day of implant. You may shower the next day. Do not soak or scrub the wound area. To dry, gently pat with a soft towel or cloth. ??? Avoid Topical Medications. Do not apply liquid or ointment medications, lotions, creams, petroleum jelly, mineral oils or any other product to your wound while adhesive film is in place. ??? Do not rub, scratch, or pick at the wound. Doing so may prevent the wound from closing appropriately and cause scarring. ??? Protect the wound from prolonged sunlight exposure. Do not use tanning lamps while the film is in place. ??? The adhesive will naturally shed itself between 5 and 10 days after the procedure. By this time, your wound should be sufficiently healed. Remote Monitor ??? You will be provided with a remote monitor before you leave the hospital. Depending on the typeof implanted monitor you have the remote monitor will either be on your phone or be a separate unit. ??? If you receive a separate remote monitor unit please plug the monitor into power when you get home -PLEASE send a single Manual Transmission when you get home. -see instructions included in the box with your monitor. ??? Once communication is established - Remote monitor transmissions will occur AUTOMATICALLY. There is no need to press any buttons ??? The device will store up to 4 patient activated events per day. You may use the activators (or your cell phone-depending on the monitor type) to kavitha when you have symptoms up to 4 times per day.If you kavitha more than 4 episodes the device will erase the oldest episode. We encourage to you to call the clinic if they have more than 4 in a day. [facility] Device Clinic - [phone] or [phone] extension [phone]. ??? No news is good news???. The clinic will call to see how you are feeling if the recorder picks up any abnormalities. ??? Monitors are not watched 03/09. The monitors are checked 1 time per day Saturday - Saturday. documented in this encounter H&P Notes * Keyon Larson MD - 08/12/2019 1246 EDT Cardiology Admitting H&P Admit Date: 08/12/2019 Date of Service: 08/12/2019 PCP: Purvi Amador Code Status: Prior Chief Complaint: CVA HPI: 70 year old with CVA of unknown cause here today for an ILR. PMH PSH Past Medical History: Diagnosis Date ??? Cancer (HCC-CMS) ??? Environmental allergies ??? Heartburn ??? Hypertension Past Surgical History: Procedure Laterality Date ??? ANKLE SURGERY ??? PILONIDAL CYST EXCISION ??? ROTATOR CUFF REPAIR and bicep tendon ??? TONSILLECTOMY Social History Family History Social History Tobacco Use ??? Smoking status: Former Smoker Packs/day: 1.00 Years: 19.00 Pack years: 19.00 ??? Smokeless tobacco: Never Used Substance Use Topics ??? Alcohol use: No Family History Problem Relation Age of Onset ??? Heart Disease Mother ??? Cancer Father ??? Heart Disease Father ??? Hearing Loss Father Medications Medications Prior to Admission Medication Sig Dispense Refill Last Dose ??? betamethasone dipropionate 0.05 % lotion Apply topically 2 times daily Taking ??? cetirizine (ZYRTEC) 10 mg tablet Take 10 mg by mouth daily as needed for Allergies Taking ??? lisinopril (PRINIVIL, ZESTRIL) 2.5 mg tablet Take 2.5 mg by mouth daily. Taking ??? metroNIDAZOLE (METROGEL) 1 % gel Apply topically daily. Use a thin layer to affected areas after washing Taking ??? NONFORMULARY Take by mouth daily green Vibrance - supplements Taking ??? tamsulosin (FLOMAX) 0.4 mg capsule Take 0.4 mg by mouth daily Taking ??? venlafaxine (EFFEXOR XR) 150 mg XR capsule Take 150 mg by mouth daily Taking Allergies Allergies Allergen Reactions ??? Ambien [Zolpidem] Other (See Comments) Hallucinations ??? Penicillins Review of Systems: Pertinent items are noted in Subjective/HPI Objective/Physical Exam: VS: No data found. Pain: No data found. Weight: There is no height or weight on file to calculate BMI. Glucose Readings (last 8 hours): No results for input(s): GLUCOSEFINGE in the last 72 hours. Exam: General appearance: alert Lungs: clear to auscultation bilaterally Heart: regular rate and rhythm, S1, S2 normal, no murmur, click, rub or gallop Abdomen: soft, non-tender; bowel sounds normal; no masses, no organomegaly Extremities: extremities warm, atraumatic, no cyanosis or edema positive pulses bilat Data Review: NA Labs: I have personally reviewed CBC: No results found for: WBC, RBC, HGB, HCT, MCV, MCH, MCHC, PLT, NEUTROABS, SEDRATE BMP: No results found for: NA, K, CL, CO2, BUN, CREATININE, GLUCOSEFINGE, CALCIUM, MG, PHOS, LABALBU Coagulation: No results found for: PROTIME, PTT, HEPHEFUFH Cardiac markers: No results found for: CKMBINDEX, TROPONINI Other Studies: N/A eGFR calculation: No results found for: CALCGFR Assessment: CVA Plan : ILR Keyon Larson MD 08/12/2019 12:46 documented in this encounter Plan of Treatment Not on file documented as of this encounter Procedures Procedure Name Priority Date/Time Associated Diagnosis Comments INSERTABLE LOOP RECORDER Routine 08/12/2019 13:38 EDT Cerebrovascular accident (CVA), unspecified mechanism ([facility]-CMS) documented in this encounter Results * LOOP INSERTION (08/12/2019 13:38 EDT) Anatomical Region Laterality Modality Cardiac Electrop hysiology 08/12/2019 12:3 0 EDT Narrative 08/12/2019 13:18 EDT *Cardiology* [address] [place] [address] Loop Recorder Implantation Patient: Michael Valdez ? Study Date: ?08/12/2019 ?Accession #: ? [id number] : ? 1945 Referring: Attending: Fellow: Assisting: Copies: ATTESTATION: I, Dr. Keyon Larson performed the entire procedure and was the initial and only author of the report.. SUMMARY OF PROCEDURE: - There were no complications. - Successful Implantable loop recorder implant. HISTORY AND INDICATIONS: ?? Stroke. PROCEDURE: - Loop recorder implant ANESTHESIA: Conscious sedation and local anesthesia. PROCEDURE: The risks, benefits, and alternatives to the procedure and sedation were explained and informed consent was obtained. The patient name, date of , surgical site, and procedure were verified prior to the procedure. The patient was brought to the OR in the fasting state. The chest was prepped and draped in the usual sterile manner. ??Lidocaine 2% and Bupivacaine 0.5% was administered to the left parasternal-submammary region. A 1cm incision was made and an implantable loop recorder was implanted via standard tunneling technique. Hemostasis was obtained using direct pressure and the wound was closed with dermabond skin adhesive. IMPLANTED HARDWARE: Implanted device: Netrepid model LNQ11 - [id number]. ILR SETTINGS: The device was programmed to record patient activated event and auto-activated events (HR >176 bpm) as well as atrial fibrillation. ARRYTHMIA DETECTION AND SETTINGS + + + + +--------+ Zone ? Zone 1 ? Zone 2 ? Ruddy ? Asystole + + + + +--------+ Cycle length CL: 320ms CL: 400ms CL: 2000ms ? + + + + +--------+ Heart rate ?? HR: 188bpm HR: 150bpm HR: 30bpm ? + + + + +--------+ Interval ? 30/40 ? 32 ? 3 sec ?? + + + + +--------+ STUDY COMPLETION - Estimated blood loss: 30ml. At the completion of the procedure, findings, results, any complications, and treatment plan were communicated to the patient and reinforced after recovery from anesthesia. With the patient's consent, the attending physician communicated findings, results, any complications, and treatment plan to family members and patient support persons who were present at the conclusion of the procedure. POST PROCEDURAL DISPOSITION: Outpatient status is indicated. ?Electronically signed by Keyon Larson MD 08/12/2019 13:18 Maris Mead NP CARDIAC EP ORDERABLE S documented in this encounter Visit Diagnoses Diagnosis Cerebrovascular accident (CVA), unspecified mechanism (HCC-CMS) Cerebrovascular accident (CVA), unspecified mechanism (HCC-CMS) documented in this encounter Admitting Diagnoses Diagnosis Cerebrovascular accident (CVA) (HCC-CMS) documented in this encounter Orders Discharge Count Last Ordered Date First Orde red Date DISCHARGE PATIENT 1 08/12/2019 documented in this encounter Care Teams Allergist/Md Relationship Specialty Start Date End Date Purvi Amador NP [address] [place] [address] PCP - General 08/18/14 documented as of this encounter
--- OUTSIDE RECORDS SUMMARY | 2023-08-27 18:16 | XMS_ITS | Encounter Summary ---
Author Organization [facility] Address [address] [place] [address] Care Team Providers Care Assistant Director Of Public Works Name Role Phone Purvi Amador TAX RECORD CLERK Primary Care Provider [phone] Encounter Details Date Type Department Care Team (Late st Contact Info) Description 09/14/[address] [id number] Purvi Amador, TAX RECORD CLERK [address] [place], [place] [id number] Social History Tobacco Use Types Packs/Day Years Used Date Smoking Tobacco: Never Assessed Sex and Gender Information Value Date Recorded [...] Sig Dispensed Refills Start Date End Date TAMSulosin (FLOMAX) 0.4 mg capsule Take 1 Capsule by mouth daily. venlafaxine (EFFEXOR-XR) 150 mg XR capsule Take 1 Capsule by mouth daily. added in this encounter Care Teams Assistant Director Of Public Works Relationship Specialty Start Date End Date Purvi Amador TAX RECORD CLERK [address] [place], [place] [id number] PCP - General 08/18/14 documented as of this encounter
--- OUTSIDE RECORDS SUMMARY | 2023-08-27 18:16 | XMS_ITS | Encounter Summary ---
Author Organization [facility] Address [address] [place] [address] Care Team Providers Care Nutrition Tech Name Role Phone Purvi Amador GUARDIAN AD LITEM Primary Care Provider [phone] Reason for Visit * Auth/Cert Specialty Diagnoses / Procedures Referred By Contac t Referred To Contact Diagnoses Cerebrovascular accident (CVA), unspecified mechanism ([facility]) [I63.9] Cupid, Fuel Storage Technician Referral ID Status Reason Start Date Expiration Date Visits Re quested Visits Authorized [id number] 07/22/2019 1 1 Encounter Details Date Type Department Care Team (Late st Contact Info) Description 08/12/2019 12:30 EDT - 08/12/2019 13:05 EDT Surgery [place] [address] EP Lab [address] [place], [place] [address] Keyon Larson MD [address] [facility], [place], [address] [place] [address] Loop Insertion [63086 (CPT??)] Surgery Details Date/Time Status Location OR Service Patient Class Case Class Case Type Trauma Case? 08/12/19 1230 Posted [facility] EP Lab EP [facility] Outpatient Procedure H - Elective Panel 1 Procedure LRB Anes Op Region Wound Class Comments Loop Insertion N/A Chest Surgeon Surgeon Role Service Panel Keyon Larson MD Primary Cardiovascular 1 Case Notes NO PREOP - straight to cardio front counter clerk documented in this encounter Social History Tobacco Use Types Packs/Day Years [...] Taken Comments Blood Pressure - - Pulse - - Temperature - - Respiratory Rate - - Oxygen Saturation 100% 08/12/2019 1253 EDT Inhaled Oxygen Concentration - - Weight [...] Code Departure Means Destination Home or Self Prison documented in this encounter Progress Notes * [...] 08/23 @ 245pm with ARNEL Quiles at [facility], [address] [facility], [place], [place]. PHONE: [phone] Pt verified firm understanding ofeducation. Denies further [...] 2 weeks please call our office at [phone]. If Steri Strips were applied: ??? Keep [...] have more than 4 in a day. [facility] Device Clinic - [phone] or [phone] extension [phone]. ??? No news is good news???. The [...] found for: CALCGFR Assessment: CVA Plan : JEFF Larson MD 08/12/2019 12:46 documented in this encounter Plan of Treatment Not on file documented as of this encounter Procedures Procedure Name Priority Date/Time Associated Diagnosis Comments INSERTABLE LOOP RECORDER Routine 08/12/2019 13:38 EDT Cerebrovascular accident (CVA), unspecified mechanism ([facility]) documented in this encounter Results * LOOP INSERTION (08/12/2019 13:38 EDT) Anatomical Region Laterality Modality Cardiac Electrop hysiology 08/12/2019 12:3 0 EDT Narrative 08/12/2019 13:18 EDT *Cardiology* [address] [place] [address] Loop Recorder Implantation Patient: Michael Valdez ? Study Date: ?08/12/2019 ?Accession #: ? [id number] : ? 1945 Referring: Attending: Fellow: Assisting: [...] dermabond skin adhesive. IMPLANTED HARDWARE: Implanted device: Red KaraokeQ model LNQ11 - [id number]. ILR SETTINGS: The device was programmed to [...] 08/12/2019 documented in this encounter Care Teams Nutrition Tech Relationship Specialty Start Date End Date Purvi Amador NP [address] [place] [address] PCP - General 08/18/14 documented as of this encounter
--- OUTSIDE RECORDS SUMMARY | 2023-08-27 18:16 | XMS_ITS | Encounter Summary ---
Author Organization [facility] Address [address] [place] [address] Care Team Providers Care Machine Welder Name Role Phone Purvi Amador RIGHT OF WAY SUPERVISOR Primary Care Provider [phone] Encounter Details Date Type Department Care Team (Latest Contact Info) Description 11/26/2018 14:02 EDT - 11/26/2018 23:59 EDT Hospital Encounter [address] [address] Marisel Davis PA-C [address] [facility] [place], [place] [address] Discharge Disposition: Home or Self Care Social [...] as of this encounter Discharge Diagnoses Diagnosis D48.5 Neoplasm of uncertain behavior of skin-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
--- OUTSIDE RECORDS SUMMARY | 2023-08-27 18:16 | XMS_ITS | Encounter Summary ---
Author Organization [facility] Address [address] [place] [address] Care Team Providers Care Prototype Technician Name Role Phone Purvi Amador CORN LAB TECHNICIAN Primary Care Provider [phone] Encounter Details Date Type Department Care Team (Late st Contact Info) Description 07/22/2019 Orders Only [facility] Cardiology - [facility] [address] [facility] [place] [address] Maris Mead NP [address] [facility] [address] [place] [address] Cerebrovascular accident (CVA), unspecified mechanism (HCC-CMS) (Primary Dx) Social History Tobacco Use [...] as of this encounter Visit Diagnoses Diagnosis Cerebrovascular accident (CVA), unspecified mechanism (HCC-CMS)- Primary documented in this encounter Orders Case Request Count Last Ordered Date First Orde red Date CASE REQUEST EP LAB 1 07/22/2019 documented in this encounter Care Teams Prototype Technician Relationship Specialty Start Date End Date Purvi Amador, CORN LAB TECHNICIAN [address] [place] [address] PCP - General 08/18/14 documented as of this encounter
--- OUTSIDE RECORDS SUMMARY | 2023-08-27 18:16 | XMS_ITS | Encounter Summary ---
Author Organization [facility] Address [address] [place] [address] Care Team Providers Care Medical Superintendent Name Role Phone Purvi Amador EQUIPMENT MECHANIC SPECIALIST Primary Care Provider [phone] Encounter Details Date Type Department Care Team (Late st Contact Info) Description 03/30/2015 Results Only [facility] [phone] Luca Franks PA [address] [place] [address], [address] [place] [address] Social History Tobacco Use Types Packs/Day Years [...] Date/Time Associated Diagnosis Comments SURGICAL PATHOLOGY Routine 03/30/2015 14 :14 EST documented in this encounter Results * SURGICAL PATHOLOGY (03/30/2015 14:14 EST) Pathology Report: SURGICAL PATHOLOGY REPORT Reports generated via electronic interface contain original data; however they are lacking the format of the original report. Caution should be taken when reading/interpret ing unformatted reports. Name: ? MICHAEL MACKENZIE ? Accession #: ? [id number] ? : ? 1945 (Age: 69) ??M ? Collect Date: ? 03/30/2015 ? Location: ? [facility] ? Receive Date: ? 03/30/2015 ? Provider: LUCA MONTIEL Copy to: ? Final Pathologic Diagnosis: SKIN OF HAND, LEFT ULNAR DORSAL, EXCISION: - Epidermal reparative change and dermal scar. - No squamous cell carcinoma identified. ?? - Actinic keratosis, incidental. Document reviewed and electronically signed by: SONDRA PEREZ MD Report ??Date: 03/31/2015 14:59 By the signature above, the attending physician certifies that he/she has personally conducted a gross and/or microscopic examination of the described specimens and rendered or confirmed the above diagnosis. Specimen(s) Received: Left ulnar dorsal hand Clinical History: [place] View patch with scale, status post biopsy, DDx: ??Squamous cell carcinoma, please check margins; clinical diagnosis code: C44.629 Gross Description: ? Received in formalin labelled with proper patient identification (initials S, W) and left ulnar dorsal hand is an unoriented elliptical excision of avelar-white skin (2.3 x 0.8 cm and is excised to a depth of 0.2 cm). There is a central avelar-pink macule that measures 0.4 x 0.3 x 0.1 cm. The margins are inked blue. The specimen is serially sectioned and entirely submitted as 1-3 central sections and 4 tips, reverse en face. Dr. Maximo Herzog 03/30/2015 6:44 PM End of Report [facility] 03/30/2015 14:1 4 EST 03/30/2015 14:14 EST Luca MONTIEL PATHOLOGY ORDERABLES [facility] [address] [place] [address] documented in this encounter Visit Diagnoses Not on filedocumented in this encounter Care Teams Medical Superintendent Relationship Specialty Start Date End Date Purvi Amador, EQUIPMENT MECHANIC SPECIALIST [address] [place] [address] PCP - General 08/18/14 documented as of this encounter
--- OUTSIDE RECORDS SUMMARY | 2023-08-27 18:16 | XMS_ITS | Encounter Summary ---
Author Organization [facility] Address [address] [place] [address] Care Team Providers Care Mine Production Engineer Name Role Phone Purvi Amador SEALS ENGRAVER Primary Care Provider [phone] Reason for Visit * Reason Onset Date Comments Pre-visit Orders 08/08/2019 Encounter Details Date Type Department Care Team (Late st Contact Info) Description 08/08/2019 Telephone [facility] Cardiology - [place] [address] Keyon Larson MD [address] [facility], [facility] [address] [place] [address] Pre-visit Orders Social History Tobacco Use Types Packs/Day Years [...] encounter Miscellaneous Notes * Telephone Encounter - Carmella Cardoza RN - 08/11/2019 1119 EDT Patient has been called and notified about the Negative result of their COVID-19 test. Education was performed: If you tested negative for COVID-19, you probably were not infected at the time your specimen was collected. However, that does not mean you will not get sick. It is possible that you were very earlyin your infection at the time of your specimen collection and that you could test positive later, or you could be exposed later and then develop illness. In other words, a negative test result does not rule out getting sick later. * Telephone Encounter - Vika Ojeda - 08/08/2019 1254 EDT Patient will be tested for COVID-19 at [facility] for procedure on 08/12/19. documented in this encounter Plan of Treatment Not on file documented as of this encounter Visit Diagnoses Not on filedocumented in this encounter Care Teams Mine Production Engineer Relationship Specialty Start Date End Date Purvi Amador, LEANDRO [address] [place] [address] PCP - General 08/18/14 documented as of this encounter
--- OUTSIDE RECORDS SUMMARY | 2023-08-27 18:16 | XMS_ITS | Encounter Summary ---
Author Organization [facility] Address [address] [place] [address] Care Team Providers Care Laborer Vegetable Farm Name Role Phone Purvi Amador DYE TUB TENDER Primary Care Provider [phone] Encounter Details Date Type Department Care Team (Latest Contact Info) Description 09/18/2017 12:10 EDT - 09/18/2017 12:13 EDT Hospital Encounter [facility] [address] [place] [address] Marisel Davis PA-C [address] [facility] [place] [address] Discharge Disposition: Home or Self Care Social [...] filedocumented in this encounter Care Teams Laborer Vegetable Farm Relationship Specialty Start Date End Date Purvi Amador, LEANDRO [address] [place] [address] PCP - General 08/18/14 documented as of this encounter
--- OUTSIDE RECORDS SUMMARY | 2023-08-27 18:16 | XMS_ITS ---
Author Organization Unknown Address [address] [place] [address] [phone] Phone Care Team Providers Care Bridge Manager Name Role Phone KATLYN LOUIS Attending Unavailable MIRI Hankins Primary Unavailable Immunization Immunization Date Status Additional Notes Code Code System Tdap 07/27/2021 Completed 115 CVX Results XR SHOULDER 2V OR MORE RT* - Completed: 05/21/2022 14:24 LOINC: [place], [place] [address] PACS ENGRAVER TENDER REPORT Patient Name: ZACH MACKENZIE MRN: Sex: : Age: [id number] M [id number] Account: Accession: Admit: StayType: [id number] 05/21/2022 O/P Ordered: Order ID: Submitted: Ordering Provider: 05/21/2022 14:11 [id number] MISSY STEIN Completed: Technologist: Resulted: 05/21/2022 14:24 MLL 05/21/2022 15:58 Study Description: XR SHOULDER 2V OR MORE RT Study Reason: RT SHOULDER PAIN TECHNIQUE: 2D digital imaging was performed. COMPARISON: No exams were available for comparison FINDINGS: NUMBER OF VIEWS: 4 No evidence of fracture or dislocation. Small calcific densities seen adjacent to the lower aspect of the greater tuberosity probably indicating an element of calcific tendinitis. Subacromial space is not diminished although there are mild-moderate degenerative changes in the AC joint. No os acromiale. Coracoid process unremarkable. No osteophytes in the glenohumeral joint. IMPRESSION: Small calcific density in the soft tissues adjacent to trochanter. This may indicate an element of calcific rotator cuff tendinitis. Report Digitally Signed by Philip Gregorio on 05/21/2022 03:58 PM EDT Social History Type Status Start Date End Date Code Code Syst em Smoking History Former smoker 4029118 SNOMED CT Sex Male Medications Medication Start Date End Date Route Frequency Dose Code Code System Medication Instructions Home Meds Aspirin 325MG Oral Tablet, Enteric Coated 10/15/2018 Unknown ORAL DAILY WITH FOOD 325 MILLIGRAMS 024891 RxNorm TAKE 325 MILLIGRAMS ORAL DAILY WITH FOOD Effexor XR 75MG Oral Capsule, Extended Release 10/15/2018 Unknown ORAL DAILY 150 MILLIGRAMS 984899 RxNorm TAKE 150 MILLIGRAMS ORAL DAILY Flomax 0.4MG Oral Capsule 10/15/2018 Unknown ORAL BEDTIME 0.4 MILLIGRAMS 809665 RxNorm TAKE 0.4 MILLIGRAMS ORAL BEDTIME Lisinopril 10MG Oral Tablet 10/15/2018 Unknown ORAL DAILY 10 MILLIGRAMS 005617 RxNorm TAKE 10 MILLIGRAMS ORAL DAILY Assessment You had the following problems:CEREBRAL INFARCTIONHYPERLIPIDEMIAHYPERTENSIONLACERATION [...] Status Code Code System CEREBRAL INFARCTION active 975342176 SNOMED-CT HYPERLIPIDEMIA active 77216381 SNOME D-CT HYPERTENSION active 36716248 SNOMED- CT LACERATION OF LEFT INDEX FINGER active 90290297774846512 SNOMED-CT TETANUS VACCINATION active 189992045 SNOMED-CT TIA 10/08/2021 resolved 141931650 SNOMED-CT HTN 10/08/2021 resolved 74205588 SNOMED-CT BPH 10/08/2021 resolved 426260771 SNOMED-CT Allergies and Adverse Reactions Allergy Substance Reaction Severity Start Date Concern Status Code Code System PENICILLINS (CLASS) Rash (SNOMED-CT: 928422802) Active 49359 RxNorm AMBIEN Hallucinations (SNOMED-CT: 3981306) Active 176220 RxNorm WHEAT Moderate 10/12/2009 Active 200168130 SNOMED-CT Plan of Treatment No Data Found Encounters Encounter Diagnosis Start Date Code Code Sys tem 05/21/2022 [id number] SNOMED-CT Personal Care Team Section Performer Name Performer Role Active Date Inactive Da guido
--- OUTSIDE RECORDS SUMMARY | 2023-08-27 18:16 | XMS_ITS | Encounter Summary ---
Author Organization [facility] Address [address] [place] [address] Care Team Providers Care Bee Robber Name Role Phone uPrvi Chery BIOFUELS PLANT OPERATIONS ENGINEER Primary Care Provider [phone] Encounter Details Date Type Department Care Team (Late st Contact Info) Description 11/26/2017 Results Only [facility] [phone] Miriam Davis PA-C [address] [place], [place] [address] Social History Tobacco Use Types Packs/Day Years [...] Date/Time Associated Diagnosis Comments SURGICAL PATHOLOGY Routine 11/26/2017 21 :15 EDT documented in this encounter Results * SURGICAL PATHOLOGY (11/26/2017 21:15 EDT) Pathology Report: SURGICAL PATHOLOGY REPORT Reports generated via electronic interface contain original data; however they are lacking the format of the original report. Caution should be taken when reading/interpret ing unformatted reports. Name: ? MICHAEL MACKENZIE ? Accession #: ? [id number] ? : ? 1945 (Age: 72) ??M ? Collect Date: ? 11/26/2017 ? Location: ? [facility] ? Receive Date: ? 11/26/2017 ? Provider: MIRIAM DAVIS PA-C Copy to: PURVI CHERY BIOFUEL[employer] PLANT OPERATIONS ENGINEER ? Final Pathologic Diagnosis: SKIN OF POPLITEAL REGION, RIGHT, SHAVE BIOPSY: - Seborrheic keratosis, pigmented. Microscopic Description: The stratum corneum is thickened by laminated orthohyperkeratos is. ??The epidermis is hyperplastic with papillomatosis and acanthosis. ??The keratinocytes have a basaloid appearance with round regular nuclei. ??Melanin pigment is accentuated at the tips of rete ridges. ??(Dr. Downey[facility] Document reviewed and electronically signed by: IVANA DOWNEY MD Report ??Date: 11/27/2017 16:51 By the signature above, the attending physician certifies that he/she has personally conducted a gross and/or microscopic examination of the described specimens and rendered or confirmed the above diagnosis. Specimen(s) Received: Right popliteal skin shave biopsy Clinical History: Irregular brown macule; DDx: Atypical nevus vs melanoma vs seborrheic keratosis; anticipated plan: Exc DG; clinical diagnosis code: ??D48.5 Gross Description: ? Received in formalin labelled with proper patient identification (initials S, W) and right popliteal skin is a 0.8 x 0.7 x 0.1 cm irregular shave of avelar to dark brown, hairbearing skin. The margin is inked blue. The specimen is bisected and entirely submitted in 1. DINESH Loomis ([facility]) 11/27/2017 8:10 AM End of Report [facility] 11/26/2017 21:1 5 EDT 11/26/2017 21:15 EDT Miriam Davis PA-C PATHOLOGY ORD ERABLES [facility] [address] [place] [address] documented in this encounter Visit Diagnoses Not on filedocumented in this encounter Care Teams Bee Robber Relationship Specialty Start Date End Date Purvi Chery NP [address] [place] [address] PCP - General 08/18/14 documented as of this encounter
--- OUTSIDE RECORDS SUMMARY | 2023-08-27 18:16 | XMS_ITS | Encounter Summary ---
Author Organization [facility] Address [address] [place] [address] Care Team Providers Care Hoisting Laborer Name Role Phone Purvi Amador NARROW GAUGE ENGINEER Primary Care Provider [phone] Reason for Visit * Reason Comments Wound Check left ankle wound Encounter Details Date Type Department Care Team (Latest Contact Info) Description 07/16/2017 9:40 EDT Office Visit [facility] Surgery - [address], [address] [place] [address] Kandice Cornejo, PA-C [address] [place] [address] [place] [phone] Open wound of left lower leg, [...] Progress Notes * Kandice Cornejo PA - 07/16/2017 0940 EDT SUBJECTIVE: Michael D Courtney returns in followup of a nonhealing ulcer of his left medial malleolus. He was last seen by Dr Batres and has been using Normalgel Ag. He reports significant improvement since last visit. He denies pain. Additionally he has plans to have a custom fitted ski boot for next season to prevent another wound. OBJECTIVE: On examination, he is in no distress. His wound shows signs of healing. Superficial scabover the wound. No surrounding erythema, drainage, or malodor. IMPRESSION: Left medial malleolus ulcer, improving PLAN: Continue Normalgel daily and keeping wound clean. Avoid pressure on area. Dr Batres also saw patient and agreed with plan. Follow up in 3-4 weeks or earlier if there are any concerns. DINESH Patel documented in this encounter Plan of Treatment Not on file documented as of this encounter Visit Diagnoses Diagnosis Open wound of left lower leg, subsequent encounter- Primary documented in this encounter Care Teams Hoisting Laborer Relationship Specialty Start Date End Date Purvi Amador NP [address] [place] [address] PCP - General 08/18/14 documented as of this encounter
--- OUTSIDE RECORDS SUMMARY | 2023-08-27 18:16 | XMS_ITS | Encounter Summary ---
Author Organization [facility] Address [address] [place] [address] Care Team Providers Care Drainage Engineer Name Role Phone Purvi Amador COMPANY TRUCK DRIVER Primary Care Provider [phone] Reason for Visit * Reason Comments Foot Problem * Consult (Routine) - Closed Specialty Diagnoses / Procedures Referred By Niko baldwin Referred To Contact Orthopedic Surgery Diagnoses Left foot pain Purvi Amador, COMPANY TRUCK DRIVER [address] [place] [address] [facility] [address] [place] [address] Referral ID Status Reason Start Date Expiration Date Visits Re quested Visits Authorized [id number] Closed 1 1 Encounter Details Date Type Department Care Team (Latest Contact Info) Description 01/21/2018 9:30 EST Office Visit [facility] [place] [address] Danny Cano, STEPHEN [address] [place] [address] Metatarsalgia of left foot (Primary Dx); Post-traumatic osteoarthritis of left foot Discharge Disposition: Auto Discharge Social History Tobacco [...] as of this encounter Discharge Diagnoses Diagnosis M77.42 Metatarsalgia, left foot-M77.42[ICD-10-CM] M19.172 Post-traumatic osteoarthritis, left ankle and foot-M19.172[ICD-10-CM] documented in this encounter Discharge Disposition Disposition Code Departure Means Destination Auto Discharge documented in this encounter Progress Notes * Danny Cano DPM - 01/21/2018 4502 EST HISTORY OF PRESENT ILLNESS: A 72-year-old male presents today with pain beneath the ball of his left foot. He has a history of injury to his left lower extremity, stemming from a fall while working. This resulted in requiring multiple surgeries to his left lower extremity. He describes it as a limb- threatening injury. He has been able to return to activity. He has discontinued running, which had been something he had enjoyed prior to the injury. He finds that he has limited motion within his left ankle and subsequently has more pressure beneath the outside portion of the ball of his left foot. The patient's remaining past medical history, medications, allergies, past surgical, social and family history was reviewed and noted in the electronic health record. PHYSICAL EXAM: Constitutional Exam: The patient is in no acute distress. Psychological Exam: The patient is awake, alert and oriented x3. Vascular Exam: His pedal pulses are 2/4 bilateral. Neurologic Exam: The patient has some hypoesthesias within the left foot and leg, stemming from hisprevious trauma. Muscle strength, however, is 5/5 in all muscle groups. Dermatologic Exam: Hyperkeratosis is noted beneath the left 5th metatarsal head, as well as the base of the 5th metatarsal plantar laterally. Orthopedic Exam: He has decreased range of motion in his left ankle and left subtalar joint stemming from his previous trauma. His left leg is shorter than the right, again associated with his trauma. IMPRESSION: 1. Metatarsalgia. 2. Posttraumatic arthritis, left ankle and left subtalar joint. TREATMENT PLAN: Paring of the hyperkeratosis was performed today. We also modified his shoe innersole to have a cut out to accommodate for the excess pressure beneath the 5th metatarsal head. He may also do this with his other shoes and boots. The use of an fpqm-zog-acbyvtj type arch support could also be helpful. documented in this encounter Plan of Treatment Not on file documented as of this encounter Visit Diagnoses Diagnosis Metatarsalgia of left foot- Primary Enthesopathy of ankle and tarsus, unspecified Post-traumatic osteoarthritis of left foot documented in this encounter Care Teams Drainage Engineer Relationship Specialty Start Date End Date Purvi Amador NP [address] [place] [address] PCP - General 08/18/14 documented as of this encounter
--- OUTSIDE RECORDS SUMMARY | 2023-08-27 18:16 | XMS_ITS | Encounter Summary ---
Author Organization [facility] Address [address] [place] [address] Care Team Providers Care Broker In Charge Name Role Phone Purvi Amador WAREHOUSE SHIPPING CLERK Primary Care Provider [phone] Reason for Visit * Reason Onset Date Comments Pre-visit Orders 07/24/2019 COVID-19 08/08/2019 Encounter Details Date Type Department Care Team (Late st Contact Info) Description 07/24/2019 Telephone [facility] Cardiology - [address] [place] [address] Carmella Cardoza, RN [address] [place] [address] Pre-visit Orders; COVID-19 Social History Tobacco Use Types Packs/Day Years [...] encounter Miscellaneous Notes * Telephone Encounter - Danilo Velarde - 08/08/2019 1258 EDT .C-19 screening recommended by provider. Routed for testing ordering. Pre Surgery Clearance- 08/12/2019 Vehicle: Hamzah Mundobrandi Color: Cardona Cell #: [phone] Spoke to patient and verbally gave instructions for Testing Facility. Patient is instructed to be there at 10:00 am sharp. 08/09/2019 * Telephone Encounter - Marisel Johansen RN - 08/08/2019 1254 EDT [facility] called and patient needs to be tested here on August 08 for a procedure on August 11 * Telephone Encounter - Nakul Rodriguez - 08/08/2019 1219 EDT Patient calling [facility] to get in for COVID-19 testing for today prior to 08/11 procedure. Clerk Rating toldpatient to call back if he cannot get scheduled there. Clerk Rating faxed order and will verify it was received. * Telephone Encounter - Carmella Cardoza RN - 07/24/2019 1511 EDT COVID-19 order placed documented in this encounter Plan of Treatment Not on file documented as of this encounter Visit Diagnoses Diagnosis Cerebrovascular accident (CVA), unspecified mechanism ([facility])- Primary documented in this encounter Care Teams Broker In Charge Relationship Specialty Start Date End Date Purvi Amador, LEANDRO [address] [place] [address] PCP - General 08/18/14 documented as of this encounter
--- OUTSIDE RECORDS SUMMARY | 2023-08-27 18:16 | XMS_ITS | Encounter Summary ---
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, bilateral Procedures MR HEAD W/WO CONTRAST CHG MRI BRAIN COMBO Enrrique Mcdaniel MD [address] [place] [address] DINESH FRANCOIS [phone] Enrrique Mcdaniel MD [address] [place] [address] D[place] FRANCOIS [phone] Referral ID Status Reason Start Date Expiration Date V isits Requested Visits Authorized [id number] Specialty Report Received 09/05/2015 1 1 Reason for Visit * Reason Comments Hearing Loss Dizziness Encounter Details Date Type Department Care Team (Late st Contact Info) Description 09/05/2015 14:30 EDT Office Visit [facility] ENT- Main [facility] [address] [place] [address] [phone] Enrrique Mcdaniel MD [address] [place] [address] D[place] FRANCOIS [phone] Asymmetrical left sensorineural hearing loss (Primary Dx); Subjective tinnitus, bilateral Discharge Disposition: Auto Discharge Social History Tobacco [...] as of this encounter Discharge Diagnoses Diagnosis H90.42 Sensorineural hearing loss, unilateral, left ear, with unrestricted hearing on the contralateral side-H90.42[ICD-10-CM] H93.13 Tinnitus, bilateral-H93.13[ICD-10-CM] documented in this encounter Discharge Disposition Disposition Code Departure Means Destination Auto Discharge documented in this encounter Progress Notes * Enrrique Mcdaniel MD - 09/05/2015 1515 EDT Otolaryngology Progress note 09/05/2015 CC: Hearing loss HPI: The patient is a 69 y.o. white male who is seen today at the request of Purvi Amador for evaluation of hearing loss. The patient was seen by Dr. House last year for vertigo which has since resolved. VNG testing was ordered but not pursued. The patient has been without vertigo for the past six months. The patient c/o Left sided hearing loss with sudden onset in April of this year. This happened inthe and resolved spontaneously. The patient was anticipating that the hearing loss would resolve spontaneously. Audiometric testing performed at the request of Dr. 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 PE: General: pleasant cooperative male in no distress EARS: OTOSCOPY: Right external auditory canal: patent and non-inflamed Left external auditory canal: patent and non-inflamed Right tympanic membrane: intact and normally mobile without retraction, perforation or effusion, patchy myringosclerosis Left tympanic membrane: intact and normally mobile without retraction, perforation or effusion Facial nerve function is normal and symmetric. AUDIOGRAM: I have reviewed the audiogram performed today by our audiology staff on Michael Valdez and it demonstrates: On the right, there is a moderately severe high-frequency sensorineural hearing loss with word recognition score of 100 %. On the left, there is a severe flat sensorineural hearing loss with word recognition score of 4 %. 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 The possible etiologies of the hearing loss were reviewed. Due to the duration of the hearing loss, treatment with steroids is not recommended. I recommended MRI of the brain to be performed without and with contrast in order to rule out an acoustic neuroma. The patient prefers to have this performed closer to home( [facility] ). I will call the patient with the results. 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, bilateral Ordered: 09/05/2015 documented as of this encounter Procedures Procedure Name Priority Date/Time Associated Diagnosis Comments AUDIOGRAM - SCANNED 09/13/2015 14:35 EDT documented in this encounter Results * AUDIOGRAM - SCANNED (09/13/2015 14:35 EDT) 09/13/2015 14:3 5 EDT Scan 2 Pony Trimmer PROCEDURE/MINOR DANIELLA GICAL ORDERABLES documented in this encounter Visit Diagnoses Diagnosis Asymmetrical left sensorineural hearing loss- Primary Sensorineural hearing loss, asymmetrical Subjective tinnitus, bilateral documented in this encounter Discontinued Medications Medication Sig Discontinue Reason Start Date End Da te clindamycin (CLEOCIN) 150 mg capsule Take 2 Caps by mouth 3 times daily 10/19/2014 09/05/2015 omeprazole (PRILOSEC OTC) 20 mg tablet Take 20 mg by mouth daily as needed 09/05/2015 oxyCODONE (ROXICODONE) 5 mg immediate release tablet Take 1-3 Tabs by mouth every 3 hours as needed for Pain Daily Max: 120 mg 10/19/2014 09/05/2015 VALERIAN ROOT ORAL Take by mouth daily 6 documented as of this encounter Historical Medications * This list may reflect changes made after this encounter. Medication Sig Dispensed Refills Start Date End Date metroNIDAZOLE (METROGEL) 1 % gel Apply topically daily. Use a thin layer to affected areas after washing fluticasone (FLONASE) 50 mcg/actuation nasal spray Instill 100 mcg into both nostrils daily. 06/27/2017 added in this encounter Care Teams Car Wiper Relationship Specialty Start Date End Date Purvi Amador, LEANDRO [address] [place] [address] PCP - General 08/18/14 documented as of this encounter
--- OUTSIDE RECORDS SUMMARY | 2023-08-27 18:16 | XMS_ITS | Encounter Summary ---
Author Organization [facility] Address [address] [place] [address] Care Team Providers Care Tactical Debriefer Officer Name Role Phone Purvi Amador FINANCE ATTORNEY Primary Care Provider [phone] Reason for Referral * Referral (Routine) - Closed Specialty Diagnoses / Procedures Referred By [facility] Rehabsayra baldwin Referred To Contact Audiology Diagnoses Vertigo Asymmetrical left sensorineural hearing loss Christiano House MD [address] [place] [address] [address] [place] [address] [facility] Audiology [address] [place] [id number] Referral ID Status Reason Start Date Expiration Date V isits Requested Visits Authorized [id number] Closed Specialty Services Required 09/16/2014 1 1 Question Answer Reason for Referral: Other-Please Explain Comments VNG for intermittent vertigo Reason for Visit * Reason Comments Dizziness started last winter when moving fast started out mild. had a more severe episode in early july went home took a nap got up and vomited went to ER ruled out stroke. subsided and came back when running had severe episode 2 weeks later at that time trouble hearing out of left ear.. now intermittent more mild. worse getting up to fast. Hearing Loss left ear always wors e but fluctuates, distortion (echo) if covers right ear, in late has sudden left hearin gloss that eventually resolved, in 1949s had invasive treatment to one ear for ear infections Other numbness/fullness le ft side from nose to ear Encounter Details Date Type Department Care Team (Latest Contact Info) Description 09/16/2014 10:30 EDT Office Visit [facility] - [place] [address] [place] [address] Unknown, ProviderMD Christiano House MD [address] [place] [address] Vertigo (Primary Dx); Asymmetrical left sensorineural hearing loss Social History Tobacco Use Types Packs/Day Years [...] Sign Reading Time Taken Comments Blood Pressure 146/94 09/16/2014 1050 EDT Pulse 60 09/16/2014 1050 EDT Temperature - - Respiratory Rate - - Oxygen Saturation - - Inhaled Oxygen Concentration - - Weight 72.6 kg (160 lb) 09/16/2014 1050 EDT Height 180.3 cm (5' 11) 09/16/2014 1050 EDT Body Mass Index 22.32 09/16/2014 1050 EDT documented in this encounter Progress Notes * Christiano House MD - 09/16/2014 1210 EDT This is a consult from Purvi Amador NP, for evaluation of dizziness. Dear Purvi mAador: History of Present Illness: This is a 68-year-old male with a history of mild intermittent dizziness with movement, started last winter where he noticed a very mild feeling of imbalance if he turned his head quick. He had a more severe episode in July where he went to the emergency room and tests were negative at that time. His symptoms subsided, but had another episode when running. His symptomsare currently mild, intermittent, lasting only for a second or two with quick movement. He has a long history of left ear problems since childhood and had a sudden left hearing loss in the 1980s, which resolved. He also had an ear procedure done in the 1950s and has some feeling of numbness and fullness on the left side of the face and ear and nose for many years, which has remained unchanged. Past Medical History: Significant for heartburn, cancer, allergies. Previous Surgeries: Include tonsillectomy, ankle surgery, pilonidal cyst excision. Family History: Significant for cancer, hearing loss, heart disease. Social History: The patient a former smoker, a pack per day for 19 years. He has drug allergies to AMBIEN and PENICILLIN. Current Medications: Include betamethasone lotion, Flomax and Effexor. Review of Systems: Significant for hearing loss, congestion, heartburn, history of skin cancer. Otherwise, negative for complete review of all systems, including general, respiratory, neurologic, endocrine, eyes, heart, musculoskeletal, psychiatric, hematology and urinary systems. Physical Exam: General: Well-developed, well-nourished, alert and oriented and cooperative adult male in no acute distress. Normal voice. Vital signs: Height 71 inches, weight 160. Blood pressure 146/94, pulse 60. No reportable pain. The face is normal without lesions. No tenderness. Salivary glands are normal. Facial strength is symmetric. Eye exam is normal. PERRL, EOMI. Neurological exam is grossly within normal limits. Cranial nerves are intact. Motor and sensory extremities are within normal limits. Strep testing with [id number] and rapidly alternating movement is normal. Romberg is normal. Fukuda test is normal. Gait and tandem gait is also within normal limits. Ears: External ears are normal. Canals are clear. The tympanic membranes are normal. An audiogram was performed which reveals a bilateral high-frequency noise-induced hearing loss, slightly worse on the left ear at 2000 Hz. SRTs are 15 decibels in the right, 20 on the left, excellent word discrimination, normal impedance. Nose: Nasal dorsum is midline, the airway is patent. Oral cavity and posterior pharynx is clear. Neck: No pathologic lymphadenopathy. Trachea is midline. Thyroid is normal. Normal bilateral otomicroscopy. Negative fistula test. Impression: Mild intermittent dizziness of unclear etiology. Possible benign paroxysmal positional vertigo. Plan: Further workup could include electronystagmography, posturography, MRI scan, and physical therapy evaluation. All of these were discussed with the patient in detail. He wishes to proceed with electronystagmography. This will be scheduled in [place]. Follow up after above. Instruction material on dizziness and dizziness management was also given to the patient. Sincerely, cc: Purvi Amador NP documented in this encounter Plan of Treatment Scheduled Referrals Name Type Priority Associated Diagnoses Orde r Schedule AMB CONS/FOLLOW UP AUDIOLOGY Outpatient Referral Routine Vertigo Asymmetrical left sensorineural hearing loss Ordered: 09/16/2014 documented as of this encounter Procedures Procedure Name Priority Date/Time Associated Diagnosis Comments AUDIOGRAM - SCANNED 09/12/2015 1 1:59 EDT PROCEDURE REPORTS - SCANNED 09/29/2014 14:05 EDT documented in this encounter Results * AUDIOGRAM - SCANNED (09/12/2015 11:59 EDT) 09/12/2015 11:5 9 EDT Scan 2 Machine Iii Coremaker PROCEDURE/MINOR DANIELLA GICAL ORDERABLES * PROCEDURE REPORTS - SCANNED (09/29/2014 14:05 EDT) 09/29/2014 14:0 5 EDT Scan 2 Machine Iii Coremaker PROCEDURE/MINOR DANIELLA GICAL ORDERABLES documented in this encounter Visit Diagnoses Diagnosis Vertigo- Primary Dizziness and giddiness Asymmetrical left sensorineural hearing loss Sensorineural hearing loss, asymmetrical documented in this encounter Historical Medications * This list may reflect changes made after this encounter. Medication Sig Dispensed Refills Start Date End Date betamethasone dipropionate 0.05 % lotion Apply topically 2 times daily added in this encounter Care Teams Tactical Debriefer Officer Relationship Specialty Start Date End Date Purvi Amador NP [address] [place] [address] PCP - General 08/18/14 documented as of this encounter
--- OUTSIDE RECORDS SUMMARY | 2023-08-27 18:16 | XMS_ITS | Encounter Summary ---
Author Organization [facility] Address [address] [place] [address] Care Team Providers Care Development Coach Name Role Phone Purvi Amador RN ELIGIBILITY Primary Care Provider [phone] Encounter Details Date Type Department Care Team (Latest Contact Info) Description 05/27/2018 12:12 EDT - 05/27/2018 23:59 EDT Hospital Encounter [address] [address] Marisel Davis PA-C [address] [place], [place] [address] Discharge Disposition: Home or Self Care Social [...] on filedocumented in this encounter Care Teams Development Coach Relationship Specialty Start Date End Date Purvi Amador, LEANDRO [address] [place] [address] PCP - General 08/18/14 documented as of this encounter
--- OUTSIDE RECORDS SUMMARY | 2023-08-27 18:16 | XMS_ITS | Encounter Summary ---
Author Organization [facility] Address [address] [place] [address] Care Team Providers Care Administrative Office Clerk Name Role Phone Purvi Amador QUALITY ASSURANCE LAB TECHNICIAN Primary Care Provider [phone] Encounter Details Date Type Department Care Team (Latest Contact Info) Description 09/18/2017 12:02 EDT - 09/18/2017 12:09 EDT Hospital Encounter [facility] [address] [place] [address] Marisel Davis PA-C [address] [facility] [place] [address] Discharge Disposition: Home or Self Care Social [...] on filedocumented in this encounter Care Teams Administrative Office Clerk Relationship Specialty Start Date End Date Purvi Amador, LEANDRO [address] [place] [address] PCP - General 08/18/14 documented as of this encounter
--- OUTSIDE RECORDS SUMMARY | 2023-08-27 18:16 | XMS_ITS | Encounter Summary ---
Author Organization [facility] Address [address] [place] [address] Care Team Providers Care Lance Crewmember Name Role Phone Purvi Amador DATA COMMUNICATIONS TECHNICIAN Primary Care Provider [phone] Encounter Details Date Type Department Care Team (Late st Contact Info) Description 08/09/2019 Lab Requisition [facility] Pathology & Laboratory Medicine - [address] [address] Outr Resulting Lab, Provider Social History Tobacco [...] Procedure Name Priority Date/Time Associated Diagnosis Comments ZZCOVID-19 TEST [facility] PCR Today 08/09/2019 10:05 EDT COVID-19 TESTING Routine 08/09/2019 10:0 5 EDT documented in this encounter Results * COVID-19 TEST [facility] PCR (08/09/2019 10:05 EDT) Swab ENTIRE NASOPHARYNX / Unknown 08/09/2019 10:05 EDT 08/09/2019 16:12 EDT Provider Outr Resulting Lab MICROBIOLOGY - GENERAL ORDERABLES Performing Organization Address City/[facility]/ZIP Co de Phone Number [facility] [address] [place] [address] * COVID-19 TESTING (08/09/2019 10:05 EDT) COVID-19 rt-PCR Result Negative Negative 08/10/2019 20:20 EDT [facility] Comment: Negative results do not preclude 2019-nCoV infection and should not be used as the sole basis for treatment or other patient management decisions. Negative results must be combined with clinical observations, patient history, and epidemiological information. This test was developed and its performance characteristics determined by [facility]. It has not been cleared or [...] by the FDA Performed on the [employer] [address] Fast. Performing Lab AB [address] [facility] Lab 08/10/2019 20:20 EDT [facility] Swab 08/09/2019 10:0 5 EDT 08/09/2019 16:12 EDT Provider Outr Resulting Lab MICROBIOLOGY - GENERAL ORDERABLES Performing Organization Address City/[facility]/ZIP Co de Phone Number [facility] [address] [place] [address] documented in this encounter Visit Diagnoses Not on filedocumented in this encounter Care Teams Lance Crewmember Relationship Specialty Start Date End Date Purvi Amador NP [address] [place] [address] PCP - General 08/18/14 documented as of this encounter
--- OUTSIDE RECORDS SUMMARY | 2023-08-27 18:16 | XMS_ITS | Encounter Summary ---
Author Organization [facility] Address [address] [place] [address] Care Team Providers Care Director Game Name Role Phone Purvi Amador INSTRUMENT MECHANIC WEAPONS SYSTEM Primary Care Provider Reason for Visit * Reason Onset Date Comments Provider Referred 05/29/2018 Encounter Details Date Type Department Care Team (Late st Contact Info) Description 05/29/2018 Telephone [facility] Dermatology 3rd Floor [facility] [address] [place], [place] [address] Jose Snyder MD [address] [facility] [place] [address] Provider Referred Social History Tobacco Use Types Packs/Day Years [...] encounter Miscellaneous Notes * Telephone Encounter - Batool Gonzalez - 06/02/2018 0925 EDT Patient is scheduled to see Dr. Joni Mcdonald on 06/17/18 at 8:30 am. Patient is aware of the procedure and verbalized a good understanding. Fax sent back to referring office. * Telephone Encounter - Alexander Barrios - 06/02/2018 0854 EDT Patient is returning a call. 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 documented in this encounter Plan of Treatment Not on file documented as of this encounter Visit Diagnoses Not on filedocumented in this encounter Care Teams Director Game Relationship Specialty Start Date End Date Purvi Amador, LEANDRO [address] [place] [address] PCP - General 08/18/14 documented as of this encounter
--- OUTSIDE RECORDS SUMMARY | 2023-08-27 18:16 | XMS_ITS | Encounter Summary ---
Author Organization [facility] Address [address] [place] [address] Care Team Providers Care Sulfuric Acid Plant Operator Name Role Phone Purvi Amador OIL REFINER Primary Care Provider [phone] Reason for Visit * Reason Onset Date Comments Referral Request 12/05/2018 Encounter Details Date Type Department Care Team (Late st Contact Info) Description 12/05/2018 Telephone [facility] Dermatology 5th Floor [facility] [address] [place], [place] [address] Jose Snyder MD [address] [facility], [address] [place] [address] Referral Request Social History Tobacco Use Types Packs/Day Years [...] * Telephone Encounter - Batool Gonzalez - 12/16/2018 1501 EST Patient is scheduled to see Dr Joni Mcdonald on 12/26/18 at 9:00 am. Left message with appointment information. Patient is to call with any further questions. Fax sent back to referring office. * Telephone Encounter - Mary Cole - 12/16/2018 1010 EST PATIENT CALLED BACK. PATIENT TIRED OF PHONE TAG. STATED IF BATOOL MAKES APPOINTMENT AND LEAVES MESSAGE ON HIS PHONE HE WILL MAKE IT WORK * Telephone Encounter - Dayan Mathews - 12/06/2018 1505 EDT Notes and pathology received. Patient contact: [phone] * Telephone Encounter - Yuli Zamora - 12/05/2018 1004 EDT SKIN OF LATOYA OF ANTIHELIX, LEFT SUPERIOR, SHAVE BIOPSY: - Squamous cell carcinoma, well differentiated, invasive. ??- Squamous cell carcinoma present at peripheral tissue edge. Notes to be faxed. documented in this encounter Plan of Treatment Not on file documented as of this encounter Visit Diagnoses Not on filedocumented in this encounter Care Teams Sulfuric Acid Plant Operator Relationship Specialty Start Date End Date Purvi Amador, OIL REFINER [address] [place] [address] PCP - General 08/18/14 documented as of this encounter
--- OUTSIDE RECORDS SUMMARY | 2023-08-27 18:16 | XMS_ITS | Encounter Summary ---
Author Organization [facility] Address [address] [place] [address] Care Team Providers Care Tile Setter Supervisor Name Role Phone Purvi Amador DATABASE ARCHITECT Primary Care Provider [phone] Encounter Details Date Type Department Care Team (Late st Contact Info) Description 10/11/2014 Pre-Procedure Orders Encounter [facility] [address] [place], [place] [address] Raquel Moon PANenaC [address] [facility] [address] [place] [address] Shoulder impingement, left (Primary Dx); Tear of left rotator cuff, unspecified tear extent Social History Tobacco Use Types Packs/Day Years [...] as of this encounter Visit Diagnoses Diagnosis Shoulder impingement, left- Primary Tear of left rotator cuff, unspecified tear extent documented in this encounter Care Teams Tile Setter Supervisor Relationship Specialty Start Date End Date Purvi Amador, DATABASE ARCHITECT [address] [place], [place] [address] PCP - General 08/18/14 documented as of this encounter
--- OUTSIDE RECORDS SUMMARY | 2023-08-27 18:16 | XMS_ITS | Encounter Summary ---
Author Organization [facility] Address [address] [place] [address] Care Team Providers Care Etl Programmer Name Role Phone Purvi Amador FOOD AND BEVERAGE ANALYST Primary Care Provider [phone] Reason for Visit * Reason Onset Date Comments Results 09/22/2015 Encounter Details Date Type Department Care Team (Late st Contact Info) Description 09/22/2015 Telephone [facility] [address] [place], [place] [id number] Enrrique Mcdaniel MD [address] [place] [address] DINESH FRANCOIS [phone] Results Social History Tobacco Use Types Packs/Day Years [...] encounter Miscellaneous Notes * Telephone Encounter - Enrrique Mcdaniel MD - 09/22/2015 5995 EDT I attempted to reach the patient in order to discuss the MRI results. 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 I will try to reach him tomorrow. Enrrique Mcdaniel MD 09/22/2015 17:41 I again attempted to reach the patient by telephone in order to review the MRI results. A letter will be sent with a cc to PCP. Dictation # [id number] Enrrique Mcdaniel MD 09/23/2015 9:00 documented in this encounter Plan of Treatment Not on file documented as of this encounter Visit Diagnoses Not on filedocumented in this encounter Care Teams Etl Programmer Relationship Specialty Start Date End Date Purvi Amador, LEANDRO [address] [place] [address] PCP - General 08/18/14 documented as of this encounter
--- OUTSIDE RECORDS SUMMARY | 2023-08-27 18:16 | XMS_ITS | Encounter Summary ---
Author Organization [facility] Address [address] [place] [address] Care Team Providers Care [employer] Principal Name Role Phone Purvi Amador DOWNSTREAM BIOMANUFACTURING TECHNICIAN Primary Care Provider [phone] Encounter Details Date Type Department Care Team (Latest Contact Info) Description 11/26/2017 8:56 EDT - 11/26/2017 8:57 EDT Hospital Encounter [address] [address] Marisel Davis PA-C [address] [facility] [place], [place] [address] Discharge Disposition: Home or Self Care Social [...] on filedocumented in this encounter Care Teams Middle School Principal Relationship Specialty Start Date End Date Purvi Amador, LEANDRO [address] [place] [address] PCP - General 08/18/14 documented as of this encounter
--- OUTSIDE RECORDS SUMMARY | 2023-08-27 18:16 | XMS_ITS | Encounter Summary ---
Author Organization [facility] Address [address] [place] [address] Care Team Providers Care Workforce Investment Act Career Manager Name Role Phone Purvi Amador HIGH SCHOOL ENGLISH TEACHER Primary Care Provider [phone] Encounter Details Date Type Department Care Team (Late st Contact Info) Description 07/28/2019 Lab Requisition [facility] Pathology & Laboratory Medicine - [address] [address] Outr Resulting Lab, Provider Social History Tobacco [...] Associated Diagnosis Comments PSA TOTAL, DIAGNOSTIC Routine 07/27/2019 7:55 EDT documented in this encounter Results * PSA TOTAL, DIAGNOSTIC (07/27/2019 7:55 EDT) PSA 2.5 0.0 - 6.5 ng/mL 07/29/2019 9:11 EDT [facility] Blood VENOUS BLOOD / Unknown 07/27/2019 7:55 EDT 07/28/2019 17:59 EDT Narrative [facility] - 07/29/2019 9:11 EDT NOTE: Serum PSA concentration should not be interpreted as absolute evidence for the presence or absence of malignant disease. Assayed on Siemens [employer] XPT using chemiluminescent technology.??Values obtained by using different assay methods cannot be used interchangeably. Provider Outr Resulting Lab CHEMISTRY & BLOOD GAS ORDERABLES [facility] [address] [place] [address] documented in this encounter Visit Diagnoses Not on filedocumented in this encounter Care Teams Workforce Investment Act Career Manager Relationship Specialty Start Date End Date Purvi Amador NP [address] [place] [address] PCP - General 08/18/14 documented as of this encounter
--- OUTSIDE RECORDS SUMMARY | 2023-08-27 18:16 | XMS_ITS | Encounter Summary ---
Author Organization [facility] Address [address] [place] [address] Care Team Providers Care Environmental Health Sanitarian Name Role Phone Purvi Amador SUPERVISOR TYPE BAR AND SEGMENT Primary Care Provider [phone] Reason for Visit * Reason Comments New Patient Visit left medial malleolu s * Consult (Urgent) - Closed Specialty Diagnoses / Procedures Referred By Niko baldwin Referred To Contact Diagnoses Non-pressure chronic ulcer of skin of other sites with unspecified severity ([facility]) Purvi Amador, SUPERVISOR TYPE BAR AND SEGMENT [address] [place] [address] Omer Batres MD [address] [phone] Referral ID Status Reason Start Date Expiration Date Visits Re quested Visits Authorized [id number] Closed 1 1 Encounter Details Date Type Department Care Team (Late st Contact Info) Description 06/27/2017 15:00 EDT Office Visit [facility] - [address], [address] [place] [address] Omer Batres MD [address] [phone] Nonhealing nonsurgical wound (Primary Dx) Discharge Disposition: Auto Discharge Social [...] - Inhaled Oxygen Concentration - - Weight 71.7 kg (158 lb) 06/27/2017 1509 EDT Height 177.8 cm (5' 10) 06/27/2017 1509 EDT Body Mass Index 22.67 06/27/2017 1509 EDT documented in this encounter Discharge Diagnoses Diagnosis T14.8XXA Other injury of unspecified body region, initial encounter-T14.8XXA[ICD-10-CM] documented in this encounter Patient Instructions * Patient Instructions* Dylon Brooks RN - 06/27/2017 15:00 EDT Before daily shower, remove old dressing. Allow water to flow over wound and pat dry. Place normogel Ag over wound and place bandaid over wound. Change orientation of bandage daily from horizontal tovertical. Call clinic for any increased pain, redness, fever or swelling. documented in this encounter Discharge Disposition Disposition Code Departure Means Destination Auto Discharge documented in this encounter Progress Notes * Omer Batres MD - 06/27/2017 1500 EDT Reason for Visit /HPI: Michael was seen in consultation at the request of Purvi SEALS for a non- healing ulcer of hisleft medial malleolus. This is at the site of a previous surgical scar from an ORIF. His hardware is reportedly still present. Patient is an active athlete particularly skiing. He has developed injury in the past that has healed without problem previously. He has been trying hyperbaric therapy but this has been soft hyperbaric. He has tried wet to dry dressings without success. Cultures had shown gram + cocci which were treated with penicillin. Patient Active Problems: Patient Active Problem List Diagnosis ??? Vertigo ??? Asymmetrical left sensorineural hearing loss ??? Rotator cuff tear ??? Shoulder impingement Past Medical History: Past Medical History: Diagnosis Date ??? Cancer (HCC-CMS) ??? Environmental allergies ??? Heartburn Past Surgical History: Past Surgical History: Procedure Laterality Date ??? ANKLE SURGERY ??? PILONIDAL CYST EXCISION ??? ROTATOR CUFF REPAIR and bicep tendon ??? TONSILLECTOMY Family History: Family History Problem Relation Age of Onset ??? Heart Disease Mother ??? Cancer Father ??? Heart Disease Father ??? Hearing Loss Father Health Habits: Social History Substance Use Topics ??? Smoking status: Former Smoker Packs/day: 1.00 Years: 19.00 ??? Smokeless tobacco: Not on file ??? Alcohol use No Medications: Outpatient Encounter Prescriptions as of 06/27/2017 Medication Sig Dispense Refill ??? betamethasone dipropionate 0.05 % lotion Apply topically 2 times daily ??? cetirizine (ZYRTEC) 10 mg tablet Take 10 mg by mouth daily as needed for Allergies ??? [DISCONTINUED] fluticasone (FLONASE) 50 mcg/actuation nasal spray Instill 100 mcg into both nostrils daily. ??? lisinopril (PRINIVIL, ZESTRIL) 2.5 mg [...] Take 150 mg by mouth daily No facility-administered encounter medications on file as of 06/27/2017. Allergies: Allergies Allergen Reactions ??? Ambien [Zolpidem] Other (See Comments) Hallucinations ??? Penicillins ROS: The patient denies neuro, endocrine, ENT, opthalmologic, pulmonary, cardiovascular, gastrointestinal, genitourinary, dermatologic, or musculoskeletal complaints other than those above. Vitals: Ht 177.8 cm (70) Wt 71.7 kg (158 lb) BMI 22.67 kg/m2 Physical Exam: Well developed, well nourished male in no apparent distress. Patient has dopplerable signals of his left PT/DP. The wound is over his medial malleolus and measures 0.7 x 0.4 cm. The base is clean with no significant odor. Assessment / Plan: 71 y.o. 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 I explainedto Michael that we need to put his wound in a more favorable environment for healing. I started himon Normlgel Ag. He is to wash the wound daily with soap and water and reapply the Normlgel and cover with a Band-Aid. He is to prevent local trauma. He is to stop the soft hyperbaric. I will see him back in roughly a month to see how he is doing. Signs and symptoms of complications were discussed. He knows to call for questions or concerns Orders: There are no diagnoses linked to this encounter. I spent 35 minutes with this patient; 30 minutes was spent in counseling and coordination of care as described in the progress note. Omer Batres MD 07/21/2017 17:46 documented in this encounter Plan of Treatment Not on file documented as of this encounter Visit Diagnoses Diagnosis Nonhealing nonsurgical wound- Primary Open wound(s) (multiple) of unspecified site(s), complicated documented in this encounter Discontinued Medications Medication Sig Discontinue Reason Start Date End Da te fluticasone (FLONASE) 50 mcg/actuation nasal spray Instill 100 mcg into both nostrils daily. Patient Stopped Taking 06/27/2017 documented as of this encounter Historical Medications * This list may reflect changes made after this encounter. Medication Sig Dispensed Refills Start Date End Date lisinopril (PRINIVIL, ZESTRIL) 2.5 mg tablet Take 1 Tablet by mouth daily. added in this encounter Care Teams Environmental Health Sanitarian Relationship Specialty Start Date End Date Purvi Amador NP [address] [place] [address] PCP - General 08/18/14 documented as of this encounter
--- OUTSIDE RECORDS SUMMARY | 2023-08-27 18:17 | XMS_ITS ---
Author Organization Unknown Address [address] [place] [address] [phone] Phone Care Team Providers Care Painter Maintenance Name Role Phone LEX GARCIA MD Attending Unavailable MICHELLE OVALLE Unavailable MIRI PORTER Primary Unavailable Results HAND LEFT MIN 3V - Completed : 08/16/2020 16:28 LOINC: There is gauze over the thum b. A soft tissue defect is seen. No foreign body or fracture is identified. Degenerative changes are noted in the fingers and wrist. IMPRESSION:Soft tissue injury. No fracture. Dictated by: CEO TITO MARROQUIN M.D. RADIOLOGIST Transcribed by: CORTES 08/17/20/11:12 D Monday, August 17, 2020 8:26:08 AM [id number] Electronically Reviewed and Signed By: TITO MARROQUIN M.D. RADIOLOGIST 08/17/20 11:25 DISCHARGED Social History Type Status Start Date End Date Code Code Syst em Smoking History Former smoker 2351064 SNOMED CT Sex Male Medications Medication Start Date End Date Route Frequency Dose Code Code System Medication Instructions Home Meds Aspirin 325MG Oral Tablet, Enteric Coated 10/15/2018 Unknown ORAL DAILY WITH FOOD 325 MILLIGRAMS 715227 RxNorm TAKE 325 MILLIGRAMS ORAL DAILY WITH FOOD Effexor XR 75MG Oral Capsule, Extended Release 10/15/2018 Unknown ORAL DAILY 150 MILLIGRAMS 228309 RxNorm TAKE 150 MILLIGRAMS ORAL DAILY Flomax 0.4MG Oral Capsule 10/15/2018 Unknown ORAL BEDTIME 0.4 MILLIGRAMS 593275 RxNorm TAKE 0.4 MILLIGRAMS ORAL BEDTIME Lisinopril 10MG Oral Tablet 10/15/2018 Unknown ORAL DAILY 10 MILLIGRAMS 175572 RxNorm TAKE 10 MILLIGRAMS ORAL DAILY Keflex 500MG Oral Capsule 07/27/2021 2 ORAL FOUR TIMES A DAY 1 CAPSULE 627145 RxNorm TAKE 1 CAPSULE ORAL FOUR TIMES [...] Status Code Code System CEREBRAL INFARCTION active 406094777 SNOMED-CT HYPERLIPIDEMIA active 23651509 SNOME D-CT HYPERTENSION active 09821026 SNOMED- CT LACERATION OF LEFT INDEX FINGER active 27512543045033520 SNOMED-CT TETANUS VACCINATION active 162761827 SNOMED-CT TIA 10/08/2021 resolved 479603032 SNOMED-CT HTN 10/08/2021 resolved 47909189 SNOMED-CT BPH 10/08/2021 resolved 614031790 SNOMED-CT Allergies and Adverse Reactions Allergy Substance Reaction Severity Start Date Concern Status Code Code System PENICILLINS (CLASS) Rash (SNOMED-CT: 536709500) Active 34961 RxNorm AMBIEN Hallucinations (SNOMED-CT: 9135637) Active 674207 RxNorm WHEAT Moderate 10/12/2009 Active 010779770 SNOMED-CT Plan of Treatment No Data Found Encounters Encounter Diagnosis Start Date Code Code Sys tem Laceration without foreign b cullen of right thumb without damage to nail, initial encounter 08/16/2020 SNOMED -CT Personal Care Team Section Performer Name Performer Role Active Date Inactive Da te
--- OUTSIDE RECORDS SUMMARY | 2023-08-27 18:17 | XMS_ITS ---
Author Organization Unknown Address [address] [place] [address] [phone] Phone Care Team Providers Care Local Coordinator Name Role Phone KATLYN LOUIS Attending Unavailable MIRI Hankins Primary Unavailable Immunization Immunization Date Status Additional Notes Code Code System Tdap 07/27/2021 Completed 115 CVX Results XR FOOT 3V RT* - Completed: 10/01/2022 14:12 LOINC: [place], [place] [address] PACS CIRCUS RIDER REPORT Patient Name: ZACH MACKENZIE MRN: Sex: : Age: [id number] M 1945 77 Account: Accession: Admit: StayType: [id number] 10/01/2022 O/P Ordered: Order ID: Submitted: Ordering Provider: 10/01/2022 13:54 [id number] MISSY CELESTE Completed: Technologist: Resulted: 10/01/2022 14:12 BSK 10/01/2022 16:58 Study Description: XR FOOT 3V RT Study Reason: FOOT PAIN TECHNIQUE: 2D digital imaging was performed. COMPARISON: No exams were available for comparison FINDINGS: NUMBER OF VIEWS: 3 No evidence of fracture nor diastases of the Lisfranc joint. Bone density normal. No osseous lesions nor erosions. Mild degenerative changes in the great toe metatarsophalangeal joint. No osseous lesions no erosions. Small inferior calcaneal spur noted. IMPRESSION: No significant osseous findings. Report Digitally Signed by Philip Gregorio on 10/01/2022 04:58 PM EDT Social History Type Status Start Date End Date Code Code Syst em Smoking History Former smoker 0322641 SNOMED CT Sex Male Medications Medication Start Date End Date Route Frequency Dose Code Code System Medication Instructions Home Meds Aspirin 325MG Oral Tablet, Enteric Coated 10/15/2018 Unknown ORAL DAILY WITH FOOD 325 MILLIGRAMS 865059 RxNorm TAKE 325 MILLIGRAMS ORAL DAILY WITH FOOD Effexor XR 75MG Oral Capsule, Extended Release 10/15/2018 Unknown ORAL DAILY 150 MILLIGRAMS 943921 RxNorm TAKE 150 MILLIGRAMS ORAL DAILY Flomax 0.4MG Oral Capsule 10/15/2018 Unknown ORAL BEDTIME 0.4 MILLIGRAMS 494792 RxNorm TAKE 0.4 MILLIGRAMS ORAL BEDTIME Lisinopril 10MG Oral Tablet 10/15/2018 Unknown ORAL DAILY 10 MILLIGRAMS 630060 RxNorm TAKE 10 MILLIGRAMS ORAL DAILY Assessment [...] Status Code Code System CEREBRAL INFARCTION active 905104921 SNOMED-CT HYPERLIPIDEMIA active 39664583 SNOME D-CT HYPERTENSION active 02345146 SNOMED- CT LACERATION OF LEFT INDEX FINGER active 45184324509403807 SNOMED-CT TETANUS VACCINATION active 895052006 SNOMED-CT TIA 10/08/2021 resolved 000918228 SNOMED-CT HTN 10/08/2021 resolved 46900526 SNOMED-CT BPH 10/08/2021 resolved 888718795 SNOMED-CT Allergies and Adverse Reactions Allergy Substance Reaction Severity Start Date Concern Status Code Code System PENICILLINS (CLASS) Rash (SNOMED-CT: 198170725) Active 39077 RxNorm AMBIEN Hallucinations (SNOMED-CT: 7012396) Active 468395 RxNorm WHEAT Moderate 10/12/2009 Active 954865708 SNOMED-CT Plan of Treatment No Data Found Encounters Encounter Diagnosis Start Date Code Code Sys tem Pain in right ankle and joints of right foot 3 SNOMED-CT Personal Care Team Section Performer Name Performer Role Active Date Inactive Da te
[2023-08-28 09:18] LABS: PSA, Screening 1.6 ng/mL (<=6.5)
== END 2023-08-27 18:13 | disposition home or self-care (01) ==
LOC: NCHCN 18:12
PROVIDERS: PCP Nurse Practitioner Family; Visit Provider Nurse Practitioner Family
DX: I10 Essential (primary) hypertension (principal); I48.0 Paroxysmal atrial fibrillation; N40.0 Benign prostatic hyperplasia without lower urinary tract symptoms; Z12.5 Encounter for screening for malignant neoplasm of prostate
CPT/HCPCS: 80048; 84153; 85027

== ENCOUNTER 2024-08-31 15:33 | Outpatient (REF) | payer MEDICARE, SELFPAY ==
[2024-08-31 15:05] LABS: HCT 42.0 % (40.0-50.0); HGB 14.0 g/dL (13.5-17.5); MCH 31.9 pg (27.0-33.0); MCHC 33.3 % (32.0-36.0); MCV 96 fL (80-95); MPV 8.6 fL (8.0-11.0); Platelet Count 331 10^3/uL (130-400); RBC 4.39 10^6/uL (4.36-5.78); RDW 12.6 % (11.8-14.1); RDW-SD 44.4 fL; WBC 3.49 10^3/uL (4.4-10.8)
[2024-08-31 15:25] LABS: Anion Gap 6.3 mmol/L (3-11); BUN 11 mg/dL (7-18); CO2 27.7 mmol/L (21.0-32.0); Calcium 9.4 mg/dL (8.5-10.1); Chloride 102 mmol/L (98-107); Estimated GFR 76.56 (mL/min/1.73m2); Glucose 89 mg/dL (74-106); Potassium 4.7 mmol/L (3.5-5.1); Sodium 136 mmol/L (136-145)
[2024-08-31 22:37] LABS: PSA, Screening 1.9 ng/mL (<=6.5)
== END 2024-08-31 15:34 | disposition home or self-care (01) ==
LOC: NCHCN 15:33
PROVIDERS: PCP Nurse Practitioner Family; Visit Provider Nurse Practitioner Family
DX: I10 Essential (primary) hypertension (principal); N40.0 Benign prostatic hyperplasia without lower urinary tract symptoms; Z79.01 Long term (current) use of anticoagulants
CPT/HCPCS: 80048; 84153; 85027